=== PATIENT | female | born 1980 | race Caucasian/White ===

== ENCOUNTER 2019-12-08 08:37 | Inpatient (IN) | payer OTHER ==
[2019-12-08 10:08] VITALS: BMI 31.0
--- NOTE | 2019-12-08 11:16 | HP ---
COWS - Scale Resting Pulse: 0= [place] 80 or Below Sweatin=Flushed/Facial Moisture Restless Observation: 1= Difficult to Sit Still Pupil Size: 0= Normal to Room Light Bone or Joint Aches: 2= Severe Diffuse Aches Runny Nose/ Eye Tearin= Runny Nose/Eyes GI Upset > 30mins: 2= Nausea/Diarrhea Tremor Observation: 0= None Yawning Observation: 0= None Anxiety or Irritability: 2=Irritable/Anxious Goose Flesh Skin: 0=Smooth Skin COWS Score: 11 CIWA Score Nausea/Vomitin-Int. Nausea w/Dry Heave Muscle Tremors: 1-None Visible, but [place] Anxiety: 1-Mildly Anxious Agitation: 0-Normal Activity Paroxysmal Sweats: No Perspiration Orientation: 0-Oriented Tacttile Disturbances: 0-None Auditory Disturbances: 1-Very Mild Visual Disturbances: 0-None Headache: 0-None Present CIWA-Ar Total Score: 7 - Admission Criteria OASAS Guidelines: Admission for Medically Managed Detox: Requires at least one of the followin. CIWA greater than 12 2. Seizures within the past 24 hours 3. Delirium tremens within the past 24 hours 4. Hallucinations within the past 24 hours 5. Acute intervention needed for co occurring medical disorder 6. Acute intervention needed for co occurring psychiatric disorder 7. Severe withdrawal that cannot be handled at a lower level of care (continued vomiting, continued diarrhea, abnormal vital signs) requiring intravenous medication and/or fluids 8. Admitting History and Physical - Admission Chief Complaint: Ms. Amalia Phillips is a 39 yo woman who presents to [facility] requesting a detox admission for heroin, cocaine, crack and marijuana use. History of Present Illness: Ms. Amalia Phillips is a 39 yo woman who presents to [facility] requesting a detox admission for heroin, cocaine, crack and marijuana use. PMH: Asthma, prior albuterol and symbicort Psych: depression, no SI Substance use History Heroin; first use age 13 y, last today, quantity: 4 bags, prior IV, current snorting Alcohol: first use age 13 y, last use today, quantity 1-2 beers per month Cocaine: first use age 13 y, last use today, 4 bags daily, inhale Nicotine: one ppd - Past Medical History ...LMP: 12/25/17 ...: No - Smoking History Smoking history: Current every day smoker Have you smoked in the past 12 months: Yes Aproximately how many cigarettes per day: 20 - Alcohol/Substance Use Hx Alcohol Use: No Admission ROS BHS - HPI Allergies/Adverse Reactions: Allergies Allergy/AdvReac Type Severity Reaction Status Date / Time shellfish derived Allergy Mild Hives Verified 12/08/19 09:34 No Known Drug Allergies Allergy Hives Verified 12/08/19 09:34 Exam Limitations: No Limitations - Ebola screening Have you traveled outside of the country in the last 21 days: No Have you had contact with anyone from an Ebola affected area: No Have you been sick,other than usual withdrawal symptoms: No Do you have a fever: No - Review of Systems Constitutional: Unintentional Wgt. Loss (50 lb loss in 2 years) EENT: reports: No Symptoms Reported Respiratory: reports: Other (feels congested) Cardiac: reports: No Symptoms Reported GI: reports: Diarrhea : reports: No Symptoms Reported Musculoskeletal: reports: Joint Pain Integumentary: reports: Other (acne) Neuro: reports: No Symptoms reported Endocrine: reports: No Symptoms Reported Hematology: reports: No Symptoms Reported Psychiatric: reports: Depressed Patient History - Patient Medical History Hx Anemia: No Hx Asthma: Yes Hx Chronic Obstructive Pulmonary Disease (COPD): No Hx Cancer: No Hx Cardiac Disorders: No Hx Congestive Heart Failure: No Hx Hypertension: No Hx Hypercholesterolemia: No Hx Pacemaker: No HX Cerebrovascular Accident: No Hx Seizures: No Hx Dementia: No Hx Diabetes: No Hx Gastrointestinal Disorders: No Hx Liver Disease: No Hx Genitourinary Disorders: No Hx Sexually Transmitted Disorders: Yes (Clamydia) Hx Renal Disease (ESRD): No Hx Thyroid Disease: No Hx Human Immunodeficiency Virus (HIV): No Hx Hepatitis C: No Hx Depression: Yes Hx Suicide Attempt: No Hx Bipolar Disorder: Yes Hx Schizophrenia: Yes - Patient Surgical History Past Surgical History: No Hx Neurologic Surgery: No Hx Cataract Extraction: No Hx Cardiac Surgery: No Hx Lung Surgery: No Hx Breast Surgery: No Hx Breast Biopsy: No Hx Abdominal Surgery: No Hx Appendectomy: No Hx Cholecystectomy: No Hx Genitourinary Surgery: No Hx Section: No Hx Orthopedic Surgery: No Anesthesia Reaction: No - PPD History Previous Implant?: Yes Documented Results: Negative w/proof Implanted On Prior R Admission?: Yes Date: 01/24/18 Results: neg PPD to be Administered?: Yes - Reproductive History Last Menstrual Period: 12/25/17 Patient : No - Smoking Cessation Smoking history: Current every day smoker Have you smoked in the past 12 months: Yes Aproximately how many cigarettes per day: 20 Cigars Per Day: 1 Hx Chewing Tobacco Use: No Initiated information on smoking cessation: Yes 'Breaking Loose' booklet given: 12/08/19 - Substances abused Alcohol Substance route: Oral Frequency: 1-3 times last 30 days Amount used: 1-2 beers Age of first use: 13 Date of last use: 12/08/19 Cocaine Substance route: Inhalation Frequency: Daily Amount used: 4 bags Age of first use: 13 Date of last use: 12/08/19 Heroin Substance route: Smoking Frequency: Daily Amount used: 4 bags Age of first use: 13 Date of last use: 12/08/19 Crack Substance route: Smoking Frequency: Daily Amount used: 2-3 bags Age of first use: 13 Date of last use: 12/08/19 Marijuana/Hashish Substance route: Smoking Frequency: Daily Age of first use: 13 Date of last use: 12/08/19 Admission Physical Exam [facility] - Vital Signs Vital Signs: Vital Signs - 24 hr 12/08/19 10:02 Temperature 97.3 F L Pulse Rate 75 Respiratory 18 Rate Blood Pressure 137/81 - Physical General Appearance: Yes: Within Normal Limits HEENTM: Yes: Within Normal Limits Respiratory: Yes: Within Normal Limits Neck: Yes: Within Normal Limits Breast: Yes: Breast Exam Deferred Cardiology: Yes: Regular Rate, S1, S2 Abdominal: Yes: Decreased BS, Tenderness (bilateral upper abdomen, no guarding) Musculoskeletal: Yes: Gait Steady Extremities: Yes: Swelling (right anterior leg, no clear trauma) Neurological: Yes: Fully Oriented, Alert, Normal Response Integumentary: Yes: Within Normal Limits - Diagnostic (1) Alcohol dependence with withdrawal, uncomplicated Current Visit: Yes Status: Acute (2) DEPRESSION Current Visit: Yes Status: Acute (3) Opioid dependence, uncomplicated Current Visit: Yes Status: Acute (4) Asthma Current Visit: No Status: Chronic Cleared for Admission [facility] - Detox or Rehab [facility] Level of Care: Medically Managed Breathalyzer - Breathalyzer Breathalyzer: 0 Urine Drug Screen - Test Device Lot number: [id number] Expiration date: 09/26/21 - Control Is test valid?: Yes - Results Drug screen NEGATIVE: No Urine drug screen results: THC-Marijuana, HUBERT-Cocaine, FEN-Fentanyl, MOP-Opiates Inpatient Rehab Admission - Rehab Decision to Admit Inpatient rehab admission?: No
[2019-12-08] MEDS ORDERED: MAGNESIUM HYDROX 2400MG/30ML ORAL SUSPENSION 30 ML CUP PO PRN (11:24)
[2019-12-08] MEDS ORDERED: IBUPROFEN 400 MG TABLET (FP) PO PRN (11:24)
[2019-12-08] MEDS ORDERED: ACETAMINOPHEN 325 MG TABLET (FP) PO PRN ×2 (11:24)
[2019-12-08] MEDS ORDERED: BISMUTH SUBSALICYLATE 262 MG/15 ML BTL PO PRN (11:24)
[2019-12-08] MEDS ORDERED: MENTHOL/PHENOL 1 EACH UD MM PRN (11:24)
[2019-12-08] MEDS ORDERED: cloNIDine HCL 0.1 MG TABLET PO PRN (11:24)
[2019-12-08] MEDS ORDERED: MAGNESIUM CITRATE 300 ML BOTTLE PO PRN (11:24)
[2019-12-08] MEDS ORDERED: MAG HYDROX/AL HYDROX/SIMETH 30 ML UNIT-DOSE CUP PO PRN (11:24)
[2019-12-08] MEDS ORDERED: ALBUTEROL SO4 HFA INHALER IH PRN (11:28)
[2019-12-08] MEDS ORDERED: METHADONE HCL 10 MG TABLET (FOR DETOX USE ONLY) PO ONE (13:00)
[2019-12-08] MEDS: NICOTINE 21 MG/24 HOURS TOPICAL PATCH TD SCH (13:40)
[2019-12-08 14:34] LABS: HEMATOCRIT 33.5 % (32.4-45.2); HEMOGLOBIN 10.9 GM/dL (10.7-15.3); MCH 27.3 pg (25.7-33.7); MCHC 32.6 g/dl (32.0-36.0); MEAN CELL VOLUME 83.6 fl (80-96); MEAN PLT VOLUME 7.2 fl (7.5-11.1); PLATELET COUNT 350 K/MM3 (134-434); RDW 17.9 % (11.6-15.6); WHITE BLOOD COUNT 6.9 K/mm3 (4.0-10.0)
[2019-12-08 14:45] LABS: ALBUMIN 3.7 g/dl (3.4-5.0); BILIRUBIN,TOTAL 0.5 mg/dL (0.2-1); BLOOD UREA NITROGEN 11.3 mg/dL (7-18); CALCIUM 8.8 mg/dL (8.5-10.1); CREATININE 0.8 mg/dL (0.55-1.3); POTASSIUM 4.3 mmol/L (3.5-5.1); TOT PROT 7.7 g/dl (6.4-8.2)
[2019-12-08] MEDS: METHOCARBAMOL 500 MG TABLET PO PRN (17:36)
[2019-12-08] MEDS: hydrOXYzine PAMOATE 25 MG CAPSULE (FP) PO PRN (17:37)
[2019-12-08] MEDS: BUDESONIDE/FORMETEROL FUMARATE 80/4.5 mcg INHALER IH SCH (22:08)
[2019-12-08] MEDS: MELATONIN 5 MG TABLETS PO PRN (22:09)
[2019-12-08] MEDS: THIAMINE HCL 100 MG TABLET (FP) PO SCH (22:09)
[2019-12-09] MEDS ORDERED: METHADONE HCL 10 MG TABLET (FOR DETOX USE ONLY) ONE (09:49)
[2019-12-09] MEDS ORDERED: METHADONE HCL 5 MG TABLET (FOR DETOX USE ONLY) ONE (09:49)
[2019-12-09] MEDS ORDERED: METHADONE (DETOX) 20 MG, METHADONE (DETOX) 5 MG PO ONE (10:00)
[2019-12-09] MEDS: PRENATAL VITAMINS W/ FOLIC ACID TABLET (FP) PO SCH (10:04)
[2019-12-09] MEDS: METHOCARBAMOL 500 MG TABLET PO PRN (10:04)
[2019-12-09] MEDS: NICOTINE 21 MG/24 HOURS TOPICAL PATCH TD SCH (10:04)
[2019-12-09] MEDS: hydrOXYzine PAMOATE 25 MG CAPSULE (FP) PO PRN ×2 (10:04→19:49)
[2019-12-09] MEDS: BUDESONIDE/FORMETEROL FUMARATE 80/4.5 mcg INHALER IH SCH ×2 (10:05→23:21)
[2019-12-09] MEDS ORDERED: PNEUMOCOCCAL 23 VACCINE 0.5 ML VIAL IM ONE (12:00)
[2019-12-09] MEDS ORDERED: FLU VACCINE QUAD 60 MCG/0.5 ML (MDV 19-20) IM ONE (12:00)
[2019-12-09] MEDS ORDERED: PNEUMOC 13-VAL CONJ-DIP CRM/PF 0.5 ML DISP.SYRIN IM ONE (12:00)
--- NOTE | 2019-12-09 12:44 | PN ---
S COWS - Scale Resting Pulse: 0= [place] 80 or Below Sweatin= No chills or Flushing Restless Observation: 1= Difficult to Sit Still Pupil Size: 1= Pupils >than Normal Bone or Joint Aches: 1= Mild Discomfort Runny Nose/ Eye Tearin= Runny Nose/Eyes GI Upset > 30mins: 2= Nausea/Diarrhea Tremor Observation of Outstretched Hands: 2= Slight Tremor Visible Yawning Observation: 1= 1-2x During Session Anxiety or Irritability: 2=Irritable/Anxious Goose Flesh Skin: 0=Smooth Skin COWS Score: 12 S Progress Note (SOAP) Subjective: alert,irritable,anxious,interrupted sleep,pain in the body,rash on the face Objective: 12/09/19 12:42 Vital Signs Temperature 98.3 F 12/09/19 08:56 Pulse Rate 79 12/09/19 08:56 Respiratory Rate 16 12/09/19 08:56 Blood Pressure 116/78 12/09/19 08:56 O2 Sat by Pulse Oximetry (%) 12/09/19 12:42 Laboratory Last Values WBC 6.9 K/mm3 (4.0-10.0) 12/08/19 11:50 RBC 4.00 M/mm3 (3.60-5.2) 12/08/19 11:50 Hgb 10.9 GM/dL (10.7-15.3) 12/08/19 11:50 Hct 33.5 % (32.4-45.2) 12/08/19 11:50 MCV 83.6 fl (80-96) 12/08/19 11:50 MCH 27.3 pg (25.7-33.7) 12/08/19 11:50 MCHC 32.6 g/dl (32.0-36.0) 12/08/19 11:50 RDW 17.9 % (11.6-15.6) H 12/08/19 11:50 Plt Count 350 K/MM3 (134-434) 12/08/19 11:50 MPV 7.2 fl (7.5-11.1) L 12/08/19 11:50 Sodium 137 mmol/L (136-145) 12/08/19 11:50 Potassium 4.3 mmol/L (3.5-5.1) 12/08/19 11:50 Chloride 105 mmol/L (98-107) 12/08/19 11:50 Carbon Dioxide 28 mmol/L (21-32) 12/08/19 11:50 Anion Gap 4 MMOL/L (8-16) L 12/08/19 11:50 BUN 11.3 mg/dL (7-18) 12/08/19 11:50 Creatinine 0.8 mg/dL (0.55-1.3) 12/08/19 11:50 Est GFR (CKD-EPI)AfAm 106.13 12/08/19 11:50 Est GFR (CKD-EPI)NonAf 91.57 12/08/19 11:50 Random Glucose 76 mg/dL (74-106) 12/08/19 11:50 Calcium 8.8 mg/dL (8.5-10.1) 12/08/19 11:50 Total Bilirubin 0.5 mg/dL (0.2-1) 12/08/19 11:50 AST 15 U/L (15-37) 12/08/19 11:50 ALT 13 U/L (13-61) 12/08/19 11:50 Alkaline Phosphatase 76 U/L (45-117) 12/08/19 11:50 Total Protein 7.7 g/dl (6.4-8.2) 12/08/19 11:50 Albumin 3.7 g/dl (3.4-5.0) 12/08/19 11:50 RPR Titer Nonreactive (NONREACTIVE) 12/08/19 11:50 Assessment: 12/09/19 12:43 withdrawal symptom Plan: continue deox methadone regimen,to give valium 10 mgs po q 4 hrs prn for 72 hrs
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
[2019-12-09] MEDS: HYDROCORTISONE 0.5% TOPICAL CREAM 30 GM TUBE TP SCH ×2 (13:38→22:32)
[2019-12-09] MEDS: diazePAM 5 MG TABLET PO PRN (13:38)
[2019-12-09] MEDS: COLLOIDAL OATMEAL 1 BAR EACH TP PRN (13:39)
[2019-12-09] MEDS: traZODone HCL 50 MG TABLET (FP) PO SCH (22:28)
[2019-12-09] MEDS: THIAMINE HCL 100 MG TABLET (FP) PO SCH (22:30)
[2019-12-09] MEDS: BENZTROPINE MESYLATE 1 MG TABLET PO SCH (22:30)
[2019-12-09] MEDS: MELATONIN 5 MG TABLETS PO PRN (22:32)
[2019-12-09] MEDS: risperiDONE 1 MG TABLET PO SCH (23:24)
[2019-12-10] MEDS ORDERED: METHADONE HCL 10 MG TABLET (FOR DETOX USE ONLY) PO ONE (10:00)
[2019-12-10] MEDS: BENZTROPINE MESYLATE 1 MG TABLET PO SCH ×2 (10:22→22:29)
[2019-12-10] MEDS: risperiDONE 1 MG TABLET PO SCH ×2 (10:22→22:30)
[2019-12-10] MEDS: NICOTINE 21 MG/24 HOURS TOPICAL PATCH TD SCH (10:23)
[2019-12-10] MEDS: PRENATAL VITAMINS W/ FOLIC ACID TABLET (FP) PO SCH (10:24)
[2019-12-10] MEDS: CITALOPRAM HYDROBROMIDE 20 MG TABLET PO SCH (10:24)
[2019-12-10] MEDS: HYDROCORTISONE 0.5% TOPICAL CREAM 30 GM TUBE TP SCH ×2 (10:25→22:32)
[2019-12-10] MEDS: BUDESONIDE/FORMETEROL FUMARATE 80/4.5 mcg INHALER IH SCH ×2 (10:26→22:32)
--- NOTE | 2019-12-10 13:56 | PN ---
[facility]HS COWS - Scale Resting Pulse: 0= [place] 80 or Below Sweatin= Chills/Flushing Restless Observation: 1= Difficult to Sit Still Pupil Size: 0= Normal to Room Light Bone or Joint Aches: 2= Severe Diffuse Aches Runny Nose/ Eye Tearin= None GI Upset > 30mins: 0= None Tremor Observation of Outstretched Hands: 2= Slight Tremor Visible Yawning Observation: 1= 1-2x During Session Anxiety or Irritability: 2=Irritable/Anxious Goose Flesh Skin: 0=Smooth Skin COWS Score: 9 S Progress Note (SOAP) Subjective: c/o chills, sweats, anxiety, and muscle aches. Objective: 12/10/19 13:55 Vital Signs 12/10/19 12/10/19 12/10/19 06:46 08:43 13:00 Temperature 98.4 F 98.3 F 99.1 F Pulse Rate 70 66 79 Respiratory 18 18 18 Rate Blood Pressure 99/57 L 117/70 117/70 Laboratory Last Values WBC 6.9 K/mm3 (4.0-10.0) 12/08/19 11:50 RBC 4.00 M/mm3 (3.60-5.2) 12/08/19 11:50 Hgb 10.9 GM/dL (10.7-15.3) 12/08/19 11:50 Hct 33.5 % (32.4-45.2) 12/08/19 11:50 MCV 83.6 fl (80-96) 12/08/19 11:50 MCH 27.3 pg (25.7-33.7) 12/08/19 11:50 MCHC 32.6 g/dl (32.0-36.0) 12/08/19 11:50 RDW 17.9 % (11.6-15.6) H 12/08/19 11:50 Plt Count 350 K/MM3 (134-434) 12/08/19 11:50 MPV 7.2 fl (7.5-11.1) L 12/08/19 11:50 Sodium 137 mmol/L (136-145) 12/08/19 11:50 Potassium 4.3 mmol/L (3.5-5.1) 12/08/19 11:50 Chloride 105 mmol/L (98-107) 12/08/19 11:50 Carbon Dioxide 28 mmol/L (21-32) 12/08/19 11:50 Anion Gap 4 MMOL/L (8-16) L 12/08/19 11:50 BUN 11.3 mg/dL (7-18) 12/08/19 11:50 Creatinine 0.8 mg/dL (0.55-1.3) 12/08/19 11:50 Est GFR (CKD-EPI)AfAm 106.13 12/08/19 11:50 Est GFR (CKD-EPI)NonAf 91.57 12/08/19 11:50 Random Glucose 76 mg/dL (74-106) 12/08/19 11:50 Calcium 8.8 mg/dL (8.5-10.1) 12/08/19 11:50 Total Bilirubin 0.5 mg/dL (0.2-1) 12/08/19 11:50 AST 15 U/L (15-37) 12/08/19 11:50 ALT 13 U/L (13-61) 12/08/19 11:50 Alkaline Phosphatase 76 U/L (45-117) 12/08/19 11:50 Total Protein 7.7 g/dl (6.4-8.2) 12/08/19 11:50 Albumin 3.7 g/dl (3.4-5.0) 12/08/19 11:50 RPR Titer Nonreactive (NONREACTIVE) 12/08/19 11:50 Labs noted. Assessment: 12/10/19 13:56 AOX 3, in no respiratory distress. Full ROM, ambulating in the unit. Withdrawal symptoms. Plan: continue detox.
[2019-12-10] MEDS: diazePAM 5 MG TABLET PO PRN (18:44)
[2019-12-10] MEDS: traZODone HCL 50 MG TABLET (FP) PO SCH (22:30)
[2019-12-10] MEDS: THIAMINE HCL 100 MG TABLET (FP) PO SCH (22:32)
[2019-12-11] MEDS: MELATONIN 5 MG TABLETS PO PRN (02:06)
[2019-12-11] MEDS ORDERED: METHADONE HCL 10 MG TABLET (FOR DETOX USE ONLY) ONE (09:37)
[2019-12-11] MEDS ORDERED: METHADONE HCL 5 MG TABLET (FOR DETOX USE ONLY) ONE (09:38)
[2019-12-11] MEDS ORDERED: METHADONE (DETOX) 10 MG, METHADONE (DETOX) 5 MG PO ONE (10:00)
[2019-12-11] MEDS: BENZTROPINE MESYLATE 1 MG TABLET PO SCH ×2 (10:15→22:21)
[2019-12-11] MEDS: risperiDONE 1 MG TABLET PO SCH ×2 (10:15→22:20)
[2019-12-11] MEDS: CITALOPRAM HYDROBROMIDE 20 MG TABLET PO SCH (10:15)
[2019-12-11] MEDS: PRENATAL VITAMINS W/ FOLIC ACID TABLET (FP) PO SCH (10:15)
[2019-12-11] MEDS: HYDROCORTISONE 0.5% TOPICAL CREAM 30 GM TUBE TP SCH ×2 (10:18→22:20)
[2019-12-11] MEDS: NICOTINE 21 MG/24 HOURS TOPICAL PATCH TD SCH (10:18)
[2019-12-11] MEDS: BUDESONIDE/FORMETEROL FUMARATE 80/4.5 mcg INHALER IH SCH ×2 (10:18→22:20)
--- NOTE | 2019-12-11 11:11 | PN ---
S CIWA - CIWA Score Nausea/Vomitin-No Nausea/No Vomiting Muscle Tremors: 2 Anxiety: 2 Agitation: 0-Normal Activity Paroxysmal Sweats: 2 Orientation: 0-Oriented Tacttile Disturbances: 0-None Auditory Disturbances: 0-None Visual Disturbances: 0-None Headache: 0-None Present CIWA-Ar Total Score: 6 [facility]HS COWS - Scale Resting Pulse: 0= [place] 80 or Below Sweatin= Chills/Flushing Restless Observation: 0= Sits Still Pupil Size: 0= Normal to Room Light Bone or Joint Aches: 1= Mild Discomfort Runny Nose/ Eye Tearin= None GI Upset > 30mins: 1= Stomach Cramp Tremor Observation of Outstretched Hands: 1= Tremor [place], Not Seen Yawning Observation: 0= None Anxiety or Irritability: 2=Irritable/Anxious Goose Flesh Skin: 0=Smooth Skin COWS Score: 6 S Progress Note (SOAP) Subjective: 39 years old female admitted on 12/08/19 for alcohol and opiate withdrawal sx management treating with valium prn and methadone detox regiments feeling ok today ate breakfast tolerated food and fluid well resting in bed Objective: 12/11/19 11:10 Vital Signs Temperature 97.5 F L 12/11/19 08:45 Pulse Rate 51 L 12/11/19 08:45 Respiratory Rate 18 12/11/19 08:45 Blood Pressure 110/74 12/11/19 08:45 O2 Sat by Pulse Oximetry (%) Laboratory Last Values WBC 6.9 K/mm3 (4.0-10.0) 12/08/19 11:50 RBC 4.00 M/mm3 (3.60-5.2) 12/08/19 11:50 Hgb 10.9 GM/dL (10.7-15.3) 12/08/19 11:50 Hct 33.5 % (32.4-45.2) 12/08/19 11:50 MCV 83.6 fl (80-96) 12/08/19 11:50 MCH 27.3 pg (25.7-33.7) 12/08/19 11:50 MCHC 32.6 g/dl (32.0-36.0) 12/08/19 11:50 RDW 17.9 % (11.6-15.6) H 12/08/19 11:50 Plt Count 350 K/MM3 (134-434) 12/08/19 11:50 MPV 7.2 fl (7.5-11.1) L 12/08/19 11:50 Sodium 137 mmol/L (136-145) 12/08/19 11:50 Potassium 4.3 mmol/L (3.5-5.1) 12/08/19 11:50 Chloride 105 mmol/L (98-107) 12/08/19 11:50 Carbon Dioxide 28 mmol/L (21-32) 12/08/19 11:50 Anion Gap 4 MMOL/L (8-16) L 12/08/19 11:50 BUN 11.3 mg/dL (7-18) 12/08/19 11:50 Creatinine 0.8 mg/dL (0.55-1.3) 12/08/19 11:50 Est GFR (CKD-EPI)AfAm 106.13 12/08/19 11:50 Est GFR (CKD-EPI)NonAf 91.57 12/08/19 11:50 Random Glucose 76 mg/dL (74-106) 12/08/19 11:50 Calcium 8.8 mg/dL (8.5-10.1) 12/08/19 11:50 Total Bilirubin 0.5 mg/dL (0.2-1) 12/08/19 11:50 AST 15 U/L (15-37) 12/08/19 11:50 ALT 13 U/L (13-61) 12/08/19 11:50 Alkaline Phosphatase 76 U/L (45-117) 12/08/19 11:50 Total Protein 7.7 g/dl (6.4-8.2) 12/08/19 11:50 Albumin 3.7 g/dl (3.4-5.0) 12/08/19 11:50 RPR Titer Nonreactive (NONREACTIVE) 12/08/19 11:50 lab noted Assessment: 12/11/19 11:10 alcohol and opiate withdrawal Plan: valium prn and methadone regiment
[2019-12-11] MEDS: diazePAM 5 MG TABLET PO PRN (16:58)
[2019-12-11] MEDS: traZODone HCL 50 MG TABLET (FP) PO SCH (22:20)
[2019-12-11] MEDS: THIAMINE HCL 100 MG TABLET (FP) PO SCH (22:20)
[2019-12-12] MEDS ORDERED: METHADONE HCL 10 MG TABLET (FOR DETOX USE ONLY) PO ONE (10:00)
[2019-12-12] MEDS: PRENATAL VITAMINS W/ FOLIC ACID TABLET (FP) PO SCH (10:17)
[2019-12-12] MEDS: METHOCARBAMOL 500 MG TABLET PO PRN (10:17)
[2019-12-12] MEDS: risperiDONE 1 MG TABLET PO SCH ×2 (10:18→22:11)
[2019-12-12] MEDS: BENZTROPINE MESYLATE 1 MG TABLET PO SCH ×2 (10:18→22:13)
[2019-12-12] MEDS: HYDROCORTISONE 0.5% TOPICAL CREAM 30 GM TUBE TP SCH ×2 (10:18→22:14)
[2019-12-12] MEDS: CITALOPRAM HYDROBROMIDE 20 MG TABLET PO SCH (10:19)
[2019-12-12] MEDS: NICOTINE 21 MG/24 HOURS TOPICAL PATCH TD SCH (10:22)
[2019-12-12] MEDS: BUDESONIDE/FORMETEROL FUMARATE 80/4.5 mcg INHALER IH SCH ×2 (10:22→22:11)
--- NOTE | 2019-12-12 12:18 | PN ---
[facility] CIWA - CIWA Score Nausea/Vomitin-No Nausea/No Vomiting Muscle Tremors: 1-None Visible, but Circle Anxiety: 1-Mildly Anxious Agitation: 0-Normal Activity Paroxysmal Sweats: 1-Minimal Palms Moist Orientation: 0-Oriented Tacttile Disturbances: 0-None Auditory Disturbances: 0-None Visual Disturbances: 0-None Headache: 0-None Present CIWA-Ar Total Score: 3 S COWS - Scale Resting Pulse: 1= [place] 81-100 Sweatin= No chills or Flushing Restless Observation: 0= Sits Still Pupil Size: 0= Normal to Room Light Bone or Joint Aches: 1= Mild Discomfort Runny Nose/ Eye Tearin= None GI Upset > 30mins: 0= None Tremor Observation of Outstretched Hands: 0= None Yawning Observation: 0= None Anxiety or Irritability: 1=Feels Anxious/Irritable Goose Flesh Skin: 0=Smooth Skin COWS Score: 3 [facility] Progress Note (SOAP) Subjective: 39 years old female admitted on 12/08/19 for alcohol and opiate withdrawal sx management treting with valium and methadone detox regiments feeling better today slept through the night less tremor mild body ache Objective: 12/12/19 12:17 Vital Signs Temperature 98.4 F 12/12/19 08:54 Pulse Rate 81 12/12/19 08:54 Respiratory Rate 18 12/12/19 08:54 Blood Pressure 122/70 12/12/19 08:54 O2 Sat by Pulse Oximetry (%) Laboratory Last Values WBC 6.9 K/mm3 (4.0-10.0) 12/08/19 11:50 RBC 4.00 M/mm3 (3.60-5.2) 12/08/19 11:50 Hgb 10.9 GM/dL (10.7-15.3) 12/08/19 11:50 Hct 33.5 % (32.4-45.2) 12/08/19 11:50 MCV 83.6 fl (80-96) 12/08/19 11:50 MCH 27.3 pg (25.7-33.7) 12/08/19 11:50 MCHC 32.6 g/dl (32.0-36.0) 12/08/19 11:50 RDW 17.9 % (11.6-15.6) H 12/08/19 11:50 Plt Count 350 K/MM3 (134-434) 12/08/19 11:50 MPV 7.2 fl (7.5-11.1) L 12/08/19 11:50 Sodium 137 mmol/L (136-145) 12/08/19 11:50 Potassium 4.3 mmol/L (3.5-5.1) 12/08/19 11:50 Chloride 105 mmol/L (98-107) 12/08/19 11:50 Carbon Dioxide 28 mmol/L (21-32) 12/08/19 11:50 Anion Gap 4 MMOL/L (8-16) L 12/08/19 11:50 BUN 11.3 mg/dL (7-18) 12/08/19 11:50 Creatinine 0.8 mg/dL (0.55-1.3) 12/08/19 11:50 Est GFR (CKD-EPI)AfAm 106.13 12/08/19 11:50 Est GFR (CKD-EPI)NonAf 91.57 12/08/19 11:50 Random Glucose 76 mg/dL (74-106) 12/08/19 11:50 Calcium 8.8 mg/dL (8.5-10.1) 12/08/19 11:50 Total Bilirubin 0.5 mg/dL (0.2-1) 12/08/19 11:50 AST 15 U/L (15-37) 12/08/19 11:50 ALT 13 U/L (13-61) 12/08/19 11:50 Alkaline Phosphatase 76 U/L (45-117) 12/08/19 11:50 Total Protein 7.7 g/dl (6.4-8.2) 12/08/19 11:50 Albumin 3.7 g/dl (3.4-5.0) 12/08/19 11:50 RPR Titer Nonreactive (NONREACTIVE) 12/08/19 11:50 lab noted Assessment: 12/12/19 12:18 alcohol and opiate withdrawal Plan: valium and methadone regiments
[2019-12-12] MEDS: hydrOXYzine PAMOATE 25 MG CAPSULE (FP) PO PRN (18:55)
[2019-12-12] MEDS: THIAMINE HCL 100 MG TABLET (FP) PO SCH (22:13)
[2019-12-12] MEDS: traZODone HCL 50 MG TABLET (FP) PO SCH (22:13)
[2019-12-13] MEDS ORDERED: METHADONE HCL 5 MG TABLET (FOR DETOX USE ONLY) PO ONE (06:00)
[2019-12-13 09:07] VITALS: BP 131/87; PULSE 83; TEMP 97.8
[2019-12-13] MEDS: hydrOXYzine PAMOATE 25 MG CAPSULE (FP) PO PRN (10:03)
[2019-12-13] MEDS: BENZTROPINE MESYLATE 1 MG TABLET PO SCH (10:03)
[2019-12-13] MEDS: CITALOPRAM HYDROBROMIDE 20 MG TABLET PO SCH (10:03)
[2019-12-13] MEDS: NICOTINE 21 MG/24 HOURS TOPICAL PATCH TD SCH (10:04)
[2019-12-13] MEDS: PRENATAL VITAMINS W/ FOLIC ACID TABLET (FP) PO SCH (10:04)
[2019-12-13] MEDS: HYDROCORTISONE 0.5% TOPICAL CREAM 30 GM TUBE TP SCH (10:04)
[2019-12-13] MEDS: risperiDONE 1 MG TABLET PO SCH (10:04)
[2019-12-13] MEDS: BUDESONIDE/FORMETEROL FUMARATE 80/4.5 mcg INHALER IH SCH (10:05)
[2019-12-13] MEDS: COLLOIDAL OATMEAL 1 BAR EACH TP PRN (10:53)
--- NOTE | 2019-12-13 12:27 | DS ---
[facility] Detox Discharge Summary Admission Date: 12/08/19 Discharge Date: 12/13/19 - History Present History: Alcohol Dependence, Opioid Dependence Additional Comments: 39 years old female admitted on 12/08/19 for alcohol and opiate withdrawal sx management treated with valium and methadone detox regiments patient has completed the valium and methadone regiments and tolerated well seen by psychiatrist charity andino trazadone patient is alert oriented x 3 respiratory clear lungs bilaterally on auscultation abdomen soft round obese no rebound tenderness skin warm and dry Pertinent Past History: time for discharge: 28 minutes - Physical Exam Results Vital Signs: Vital Signs Temperature 97.8 F 12/13/19 08:42 Pulse Rate 83 12/13/19 08:42 Respiratory Rate 18 12/13/19 08:42 Blood Pressure 131/87 12/13/19 08:42 O2 Sat by Pulse Oximetry (%) Pertinent Admission Physical Exam Findings: alcohol and opiate withdrawal Laboratory Last Values WBC 6.9 K/mm3 (4.0-10.0) 12/08/19 11:50 RBC 4.00 M/mm3 (3.60-5.2) 12/08/19 11:50 Hgb 10.9 GM/dL (10.7-15.3) 12/08/19 11:50 Hct 33.5 % (32.4-45.2) 12/08/19 11:50 MCV 83.6 fl (80-96) 12/08/19 11:50 MCH 27.3 pg (25.7-33.7) 12/08/19 11:50 MCHC 32.6 g/dl (32.0-36.0) 12/08/19 11:50 RDW 17.9 % (11.6-15.6) H 12/08/19 11:50 Plt Count 350 K/MM3 (134-434) 12/08/19 11:50 MPV 7.2 fl (7.5-11.1) L 12/08/19 11:50 Sodium 137 mmol/L (136-145) 12/08/19 11:50 Potassium 4.3 mmol/L (3.5-5.1) 12/08/19 11:50 Chloride 105 mmol/L (98-107) 12/08/19 11:50 Carbon Dioxide 28 mmol/L (21-32) 12/08/19 11:50 Anion Gap 4 MMOL/L (8-16) L 12/08/19 11:50 BUN 11.3 mg/dL (7-18) 12/08/19 11:50 Creatinine 0.8 mg/dL (0.55-1.3) 12/08/19 11:50 Est GFR (CKD-EPI)AfAm 106.13 12/08/19 11:50 Est GFR (CKD-EPI)NonAf 91.57 12/08/19 11:50 Random Glucose 76 mg/dL (74-106) 12/08/19 11:50 Calcium 8.8 mg/dL (8.5-10.1) 12/08/19 11:50 Total Bilirubin 0.5 mg/dL (0.2-1) 12/08/19 11:50 AST 15 U/L (15-37) 12/08/19 11:50 ALT 13 U/L (13-61) 12/08/19 11:50 Alkaline Phosphatase 76 U/L (45-117) 12/08/19 11:50 Total Protein 7.7 g/dl (6.4-8.2) 12/08/19 11:50 Albumin 3.7 g/dl (3.4-5.0) 12/08/19 11:50 RPR Titer Nonreactive (NONREACTIVE) 12/08/19 11:50 lab noted - Treatment Hospital Course: Detox Protocol Followed, Detoxed Safely, Responded well, Discharged Condition Good, Rehab Referral Accepted Patient has Accepted [facility] Referral [facility] - Medication Discharge Medications: Ambulatory Orders Naltrexone HCl 50 mg PO DAILY 01/22/18 Citalopram Hydrobromide [Celexa -] 20 mg PO DAILY #30 tablet 01/25/18 Albuterol Sulfate Inhaler - [Ventolin HFA Inhaler -] 2 puff IH Q4H PRN #1 inhaler 01/26/18 Budesonide/Formeterol Fumarate [SYMBICORT 80/4.5mcg -] 2 puff IH BID #1 inhaler 01/26/18 traZODone HCL [Trazodone HCl] 100 mg PO HS 12/08/19 Benztropine Mesylate [Cogentin -] 0.5 mg PO BID 12/13/19 Risperidone [Risperdal] 1 mg PO BID 12/13/19 - Diagnosis (1) Alcohol dependence with withdrawal, uncomplicated Status: Acute (2) Nicotine dependence Status: Acute Qualifiers: Nicotine product type: cigarettes Substance use status: in withdrawal Qualified Code(s): F17.213 - Nicotine dependence, cigarettes, with withdrawal (3) Opioid dependence with withdrawal Status: Acute (4) Asthma Status: Chronic Qualifiers: Asthma severity: mild Asthma persistence: intermittent Asthma complication type: with status asthmaticus Qualified Code(s): J45.22 - Mild intermittent asthma with status asthmaticus (5) Substance induced mood disorder Status: Suspected - AMA Did Patient Leave Against Medical Advice: No CIWA Score - CIWA Score Nausea/Vomitin-No Nausea/No Vomiting Muscle Tremors: 1-None Visible, but [place] Anxiety: 1-Mildly Anxious Agitation: 0-Normal Activity Paroxysmal Sweats: No Perspiration Orientation: 0-Oriented Tacttile Disturbances: 0-None Auditory Disturbances: 0-None Visual Disturbances: 0-None Headache: 0-None Present CIWA-Ar Total Score: 2 COWS (PN) - Opiate Withdrawal Resting Pulse: 1= [place] 81-100 Sweatin= No chills or Flushing Restless Observation: 0= Sits Still Pupil Size: 0= Normal to Room Light Bone or Joint Aches: 0= None Runny Nose/ Eye Tearin= None GI Upset > 30mins: 0= None Tremor Observation of Outstretched Hands: 1= Tremor [place], Not Seen Yawning Observation: 0= None Anxiety or Irritability: 0= None Goose Flesh Skin: 0=Smooth Skin COWS Score: 2
== END 2019-12-13 12:18 | disposition other institution (70) | DRG 897 ==
LOC: YASAS 08:37 → Y3N 12:35
PROVIDERS: ADMIT Allergy & Immunology; ATTEND Allergy & Immunology
PROC: HZ2ZZZZ Detoxification Services for Substance Abuse Treatment (ICD-10-PCS; principal; 2019-12-08)
DX: F11.23 Opioid dependence with withdrawal (principal); F14.20 Cocaine dependence, uncomplicated; J45.22 Mild intermittent asthma with status asthmaticus; F10.230 Alcohol dependence with withdrawal, uncomplicated; F12.20 Cannabis dependence, uncomplicated; F17.213 Nicotine dependence, cigarettes, with withdrawal; F19.24 Other psychoactive substance dependence with psychoactive substance-induced mood disorder; F25.9 Schizoaffective disorder, unspecified; F32.9 Major depressive disorder, single episode, unspecified; G47.00 Insomnia, unspecified; Z62.810 Personal history of physical and sexual abuse in childhood
CPT/HCPCS: 36415; 80053; 85027; 86593; J2794

== ENCOUNTER 2019-12-13 12:35 | Inpatient (IN) | payer OTHER ==
--- NOTE | 2019-12-13 12:16 | HP ---
[facility] Rehab Assess/Revision - Admission History Admitted to Rehab from: [facility] Date of Admission to Rehab: 12/12/19 - Findings Detox History & Physical reviewed: Yes Concur with findings: Yes Comments/Additional Findings: transferred from detox to rehab admission as per protocol Inpatient Rehab Admission - Rehab Decision to Admit Inpatient rehab admission?: Yes - Initial Determination Are CD services needed?: Yes Free of communicable disease: Yes Not in need of hospitalization: Yes - Rehab Admission Criteria Previous failed treatment: Yes Poor recovery environment: Yes Comorbidities: Yes Lacks judgement: Yes Patient is meeting Inpatient Rehab admission criteria:: Yes
[~2019-12-13 12:35] MED LIST: IBUPROFEN 400 MG TABLET (FP) PO PRN; LOPERAMIDE HCL 2 MG CAPSULE PO PRN; MAG HYDROX/AL HYDROX/SIMETH 30 ML UNIT-DOSE CUP PO PRN; MAGNESIUM CITRATE 300 ML BOTTLE PO PRN; MAGNESIUM HYDROX 2400MG/30ML ORAL SUSPENSION 30 ML CUP PO PRN; MENTHOL/PHENOL 1 EACH UD MM PRN; NICOTINE POLACRILEX 4 MG GUM BUC PRN; P-EPHED 60MG/TRIPROLIDI 2.5MG TABLET PO PRN; guaiFENesin 200 MG/10 ML 10 ML UNIT-DOSE CUPS PO PRN
--- NOTE | 2019-12-13 13:31 | PN ---
[facility] Progress Note Note: Pt is a 39 y/o female with a hx of OCTAVIO-heroin,crack/cocaine,alcohol,marijuana admitted to rehab today after completing detox on . PMHx:Asthma,facial Acne. Psych Hx:Bipolar d/o. PSHx:Denies. Pt reports she has a primary care provider Dr. Mani Casper in the [place](reports she has not had first patient encounter with her doctor after assignment by her insurance and says she will follow up after rehab treatment). Vital Signs - 24 hr 12/13/19 12:25 Temperature 97.9 F Pulse Rate 76 Respiratory 18 Rate Blood Pressure 132/88 Alert o x 3,denies s/h/i nad oob ambulating with steady gait extremities/skin:no edema;healed scars on right wrist("from cooking last thanksgi");dry skin on soles of feet. A/P s/p detox OCTAVIO Maintain safety increase po fluids Tinactin cream apply as directed Eucerin cream apply daily cont rehab
[2019-12-13] MEDS: MINERAL OIL/PETROLAT/WATER TOPICAL CREAM 113 GM JAR TP SCH (15:48)
[2019-12-13] MEDS: BUDESONIDE/FORMETEROL FUMARATE 80/4.5 mcg INHALER IH SCH (21:45)
[2019-12-13] MEDS: THIAMINE HCL 100 MG TABLET (FP) PO SCH (21:46)
[2019-12-13] MEDS: BENZTROPINE MESYLATE 1 MG TABLET PO SCH (21:46)
[2019-12-13] MEDS: MELATONIN 5 MG TABLETS PO PRN (21:47)
[2019-12-13] MEDS: HYDROCORTISONE 0.5% TOPICAL CREAM 30 GM TUBE TP SCH ×2 (21:48→22:16)
[2019-12-13] MEDS: TOLNAFTATE 1% CREAM 15 GM TUBE TP SCH (21:49)
[2019-12-13] MEDS ORDERED: traZODone HCL 50 MG TABLET (FP) PO SCH (22:00)
[2019-12-14] MEDS: HYDROCORTISONE 0.5% TOPICAL CREAM 30 GM TUBE TP SCH ×3 (06:47→21:44)
[2019-12-14] MEDS ORDERED: PT OWN MED DRAWER 7, Y5N ONE ×3 (09:03→19:25)
[2019-12-14] MEDS: BENZTROPINE MESYLATE 1 MG TABLET PO SCH ×2 (10:19→21:42)
[2019-12-14] MEDS: CITALOPRAM HYDROBROMIDE 20 MG TABLET PO SCH (10:19)
[2019-12-14] MEDS: MINERAL OIL/PETROLAT/WATER TOPICAL CREAM 113 GM JAR TP SCH (10:20)
[2019-12-14] MEDS: BUDESONIDE/FORMETEROL FUMARATE 80/4.5 mcg INHALER IH SCH ×2 (10:20→21:44)
[2019-12-14] MEDS: PRENATAL VITAMINS W/ FOLIC ACID TABLET (FP) PO SCH (10:20)
[2019-12-14] MEDS: NICOTINE 21 MG/24 HOURS TOPICAL PATCH TD SCH (10:20)
[2019-12-14] MEDS: TOLNAFTATE 1% CREAM 15 GM TUBE TP SCH ×2 (10:21→21:45)
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
[2019-12-14] MEDS ORDERED: FLU VACCINE QUAD 60 MCG/0.5 ML (MDV 19-20) IM ONE (12:00)
[2019-12-14] MEDS: risperiDONE 1 MG TABLET PO SCH ×2 (15:54→21:42)
[2019-12-14] MEDS: THIAMINE HCL 100 MG TABLET (FP) PO SCH (21:42)
[2019-12-14] MEDS: traZODone HCL 50 MG TABLET (FP) PO SCH (21:43)
[2019-12-15] MEDS: HYDROCORTISONE 0.5% TOPICAL CREAM 30 GM TUBE TP SCH ×3 (06:45→21:36)
[2019-12-15] MEDS ORDERED: PT OWN MED DRAWER 7, Y5N ONE ×2 (08:49→13:32)
[2019-12-15] MEDS: TOLNAFTATE 1% CREAM 15 GM TUBE TP SCH ×2 (10:16→21:36)
[2019-12-15] MEDS: BUDESONIDE/FORMETEROL FUMARATE 80/4.5 mcg INHALER IH SCH ×2 (10:16→23:10)
[2019-12-15] MEDS: CITALOPRAM HYDROBROMIDE 20 MG TABLET PO SCH (10:17)
[2019-12-15] MEDS: risperiDONE 1 MG TABLET PO SCH ×2 (10:17→21:34)
[2019-12-15] MEDS: PRENATAL VITAMINS W/ FOLIC ACID TABLET (FP) PO SCH (10:17)
[2019-12-15] MEDS: BENZTROPINE MESYLATE 1 MG TABLET PO SCH ×2 (10:17→21:33)
[2019-12-15] MEDS: NICOTINE 21 MG/24 HOURS TOPICAL PATCH TD SCH (10:19)
[2019-12-15] MEDS: MINERAL OIL/PETROLAT/WATER TOPICAL CREAM 113 GM JAR TP SCH (10:50)
[2019-12-15] MEDS: traZODone HCL 50 MG TABLET (FP) PO SCH (21:33)
[2019-12-15] MEDS: THIAMINE HCL 100 MG TABLET (FP) PO SCH (21:33)
[2019-12-15] MEDS: MELATONIN 5 MG TABLETS PO PRN (21:34)
[2019-12-16] MEDS: HYDROCORTISONE 0.5% TOPICAL CREAM 30 GM TUBE TP SCH ×3 (06:51→23:06)
[2019-12-16] MEDS: CITALOPRAM HYDROBROMIDE 20 MG TABLET PO SCH (10:21)
[2019-12-16] MEDS: BENZTROPINE MESYLATE 1 MG TABLET PO SCH ×2 (10:21→22:14)
[2019-12-16] MEDS: PRENATAL VITAMINS W/ FOLIC ACID TABLET (FP) PO SCH (10:21)
[2019-12-16] MEDS: risperiDONE 1 MG TABLET PO SCH ×2 (10:21→22:15)
[2019-12-16] MEDS: MINERAL OIL/PETROLAT/WATER TOPICAL CREAM 113 GM JAR TP SCH (10:22)
[2019-12-16] MEDS: BUDESONIDE/FORMETEROL FUMARATE 80/4.5 mcg INHALER IH SCH ×2 (10:22→22:15)
[2019-12-16] MEDS: NICOTINE 21 MG/24 HOURS TOPICAL PATCH TD SCH (10:22)
[2019-12-16] MEDS: TOLNAFTATE 1% CREAM 15 GM TUBE TP SCH ×2 (10:23→22:15)
[2019-12-16] MEDS: COLLOIDAL OATMEAL 1 BAR EACH TP PRN (10:24)
[2019-12-16] MEDS: ACETAMINOPHEN 325 MG TABLET (FP) PO PRN (20:21)
[2019-12-16] MEDS: THIAMINE HCL 100 MG TABLET (FP) PO SCH (22:14)
[2019-12-16] MEDS: traZODone HCL 50 MG TABLET (FP) PO SCH (22:15)
[2019-12-16] MEDS: ALBUTEROL SO4 HFA INHALER IH PRN (22:17)
[2019-12-17] MEDS ORDERED: PT OWN MED DRAWER 7, Y5N ONE ×2 (06:06→09:33)
[2019-12-17] MEDS: HYDROCORTISONE 0.5% TOPICAL CREAM 30 GM TUBE TP SCH ×3 (07:25→21:22)
[2019-12-17] MEDS: BUDESONIDE/FORMETEROL FUMARATE 80/4.5 mcg INHALER IH SCH ×2 (10:40→21:22)
[2019-12-17] MEDS: NICOTINE 21 MG/24 HOURS TOPICAL PATCH TD SCH (10:40)
[2019-12-17] MEDS: MINERAL OIL/PETROLAT/WATER TOPICAL CREAM 113 GM JAR TP SCH (10:41)
[2019-12-17] MEDS: TOLNAFTATE 1% CREAM 15 GM TUBE TP SCH ×2 (10:41→21:23)
[2019-12-17] MEDS: PRENATAL VITAMINS W/ FOLIC ACID TABLET (FP) PO SCH (10:42)
[2019-12-17] MEDS: CITALOPRAM HYDROBROMIDE 20 MG TABLET PO SCH (10:42)
[2019-12-17] MEDS: risperiDONE 1 MG TABLET PO SCH ×2 (10:42→21:23)
[2019-12-17] MEDS: BENZTROPINE MESYLATE 1 MG TABLET PO SCH ×2 (10:42→21:21)
[2019-12-17] MEDS: ACETAMINOPHEN 325 MG TABLET (FP) PO PRN (13:04)
[2019-12-17] MEDS: THIAMINE HCL 100 MG TABLET (FP) PO SCH (21:23)
[2019-12-17] MEDS: traZODone HCL 50 MG TABLET (FP) PO SCH (21:23)
[2019-12-18] MEDS: HYDROCORTISONE 0.5% TOPICAL CREAM 30 GM TUBE TP SCH ×3 (06:54→21:28)
[2019-12-18] MEDS: BUDESONIDE/FORMETEROL FUMARATE 80/4.5 mcg INHALER IH SCH ×2 (10:44→21:28)
[2019-12-18] MEDS: NICOTINE 21 MG/24 HOURS TOPICAL PATCH TD SCH (10:44)
[2019-12-18] MEDS: PRENATAL VITAMINS W/ FOLIC ACID TABLET (FP) PO SCH (10:45)
[2019-12-18] MEDS: risperiDONE 1 MG TABLET PO SCH ×2 (10:45→21:27)
[2019-12-18] MEDS: BENZTROPINE MESYLATE 1 MG TABLET PO SCH ×2 (10:45→21:28)
[2019-12-18] MEDS: TOLNAFTATE 1% CREAM 15 GM TUBE TP SCH ×2 (10:45→21:29)
[2019-12-18] MEDS: MINERAL OIL/PETROLAT/WATER TOPICAL CREAM 113 GM JAR TP SCH (10:46)
[2019-12-18] MEDS: CITALOPRAM HYDROBROMIDE 20 MG TABLET PO SCH (10:46)
[2019-12-18] MEDS ORDERED: PT OWN MED DRAWER 7, Y5N ONE ×3 (10:47→20:38)
[2019-12-18] MEDS: THIAMINE HCL 100 MG TABLET (FP) PO SCH (21:27)
[2019-12-18] MEDS: traZODone HCL 50 MG TABLET (FP) PO SCH (21:27)
[2019-12-19] MEDS: HYDROCORTISONE 0.5% TOPICAL CREAM 30 GM TUBE TP SCH ×3 (06:39→21:24)
[2019-12-19] MEDS: PRENATAL VITAMINS W/ FOLIC ACID TABLET (FP) PO SCH (10:41)
[2019-12-19] MEDS: risperiDONE 1 MG TABLET PO SCH ×2 (10:41→21:23)
[2019-12-19] MEDS: MINERAL OIL/PETROLAT/WATER TOPICAL CREAM 113 GM JAR TP SCH (10:41)
[2019-12-19] MEDS: NICOTINE 21 MG/24 HOURS TOPICAL PATCH TD SCH (10:42)
[2019-12-19] MEDS: BENZTROPINE MESYLATE 1 MG TABLET PO SCH ×2 (10:42→21:24)
[2019-12-19] MEDS: CITALOPRAM HYDROBROMIDE 20 MG TABLET PO SCH (10:43)
[2019-12-19] MEDS ORDERED: PT OWN MED DRAWER 7, Y5N ONE (10:43)
[2019-12-19] MEDS: BUDESONIDE/FORMETEROL FUMARATE 80/4.5 mcg INHALER IH SCH ×2 (10:44→21:24)
[2019-12-19] MEDS: TOLNAFTATE 1% CREAM 15 GM TUBE TP SCH ×2 (11:46→21:25)
[2019-12-19] MEDS: THIAMINE HCL 100 MG TABLET (FP) PO SCH (21:23)
[2019-12-19] MEDS: traZODone HCL 50 MG TABLET (FP) PO SCH (21:23)
[2019-12-20] MEDS: HYDROCORTISONE 0.5% TOPICAL CREAM 30 GM TUBE TP SCH ×3 (06:43→21:23)
--- NOTE | 2019-12-20 10:38 | PN ---
Psychiatric Progress Note Vital Signs: Vital Signs Period Temp Pulse Resp BP Sys/Hernandez Pulse Ox Last 24 Hr 98.0 F 74 16-18 114/74 Date of Session: 12/20/19 Chief Complaint:: " I want to know about medical marijuana." HPI: Patient admitted to 3W for alcohol, opioid, cocaine and cannabis dependence. Consultation ordered as patient is inquiring information on medical marijuana for PTSD. ROS: Patient is calm, cooperative, alert +oriented X3. Current Medications: Active Medications Generic Name Dose Route Start Last Admin Trade Name Freq PRN Reason Stop Dose Admin Acetaminophen 650 mg 12/13/19 12:16 12/17/19 13:04 Tylenol - PO 650 mg Q4H PRN Administration FEVER Al Hydroxide/Mg Hydroxide 30 ml 12/13/19 12:16 Mylanta Oral Suspension - PO Q6H PRN DYSPEPSIA Albuterol Sulfate 2 puff 12/13/19 12:18 12/16/19 22:17 Ventolin Hfa Inhaler - IH 2 unit Q4H PRN Administration SHORT OF BREATH/WHEEZING Benztropine Mesylate 0.5 mg 12/13/19 22:00 12/19/19 21:24 Cogentin - PO 0.5 mg BID LISA Administration Budesonide/Formoterol Fumarate 2 puff 12/13/19 22:00 12/19/19 21:24 Symbicort 80/4.5mcg - IH 2 puff BID LISA Administration Citalopram Hydrobromide 20 mg 12/14/19 10:00 12/19/19 10:43 Celexa - PO 20 mg DAILY LISA Administration Colloidal Oatmeal 1 applic 12/13/19 12:24 12/16/19 10:24 Aveeno Soap - TP 1 bar DAILY PRN Administration HYGEINE Eucalyptus/Menthol/Phenol/Sorbitol 1 each 12/13/19 12:16 Cepastat Lozenge - MM Q4H PRN SORE THROAT Guaifenesin 10 ml 12/13/19 12:16 Robitussin - PO Q6H PRN COUGH Hydrocortisone 1 applic 12/13/19 14:00 12/20/19 06:43 Hytone 0.5% Cream - TP Not Given TID LISA Ibuprofen 400 mg 12/13/19 12:16 Motrin - PO Q6H PRN Pain level 4-6 Loperamide HCl 4 mg 12/13/19 12:16 Imodium - PO Q6H PRN DIARRHEA Magnesium Citrate 300 ml 12/13/19 12:16 Citroma - PO Q48H PRN CONSTIPATION Magnesium Hydroxide 30 ml 12/13/19 12:16 Milk Of Magnesia - PO DAILY PRN CONSTIPATION Melatonin 5 mg 12/13/19 22:00 12/15/19 21:34 Melatonin PO 5 mg HS PRN Administration INSOMNIA Multi-Ingredient Lotion 1 applic 12/13/19 14:15 12/19/19 10:41 Eucerin (Small Jar) - TP Not Given DAILY LISA Nicotine 21 mg 12/14/19 10:00 12/19/19 10:42 Nicoderm Patch - TD 21 mg DAILY LISA Administration Nicotine Polacrilex 4 mg 12/13/19 12:16 Nicorette Gum - BUC Q2H PRN NICOTINE REPLACEMENT RX Multivit/Folic Acid/Iron 1 tab 12/14/19 10:00 12/19/19 10:41 Vitamins (Sjr) - PO 1 tab DAILY LISA Administration Pseudoephedrine/Triprolidine 1 combo 12/13/19 12:16 Actifed - PO TID PRN NASAL CONGESTION Risperidone 1 mg 12/14/19 15:05 12/19/19 21:23 Risperdal - PO 1 mg BID LISA Administration Thiamine HCl 100 mg 12/13/19 22:00 12/19/19 21:23 Vitamin B1 - PO 100 mg HS LISA Administration Tolnaftate 1 applic 12/13/19 22:00 12/19/19 21:25 Tinactin 1% Cream - TP Not Given BID LISA Trazodone HCl 50 mg 12/14/19 22:00 12/19/19 21:23 Desyrel - PO 50 mg HS LISA Administration Medication(s) Change(s): No. Current Side Effect: No Lab tests ordered: No Lab tests reviewed: Yes Provider note:: Patient inquiring information of medical marijuana for PTSD. Patient informed that medical marijuana is not prescribed in rehab. Patient encouraged to seek therapy on the outside and to speak to her outpatient psychatrist concerning the possibility of treating her history of PTSD with Medical marijuana. Medications reviewed. Patient reports stable mood and states that she is sleeping well. She denies experiencing nightmares but does report experiencing flashbacks during certain days. Patient educated on the importance of seeking therapy after discharge as the combination of therapy and psychotropic medications can be highly successful in treating PTSD. Patient satisfied and receptive to feedback. Total face to face time:: 25 Psychiatric Treatment Plan - Problem List (1) PTSD (post-traumatic stress disorder) Current Visit: Yes (2) Substance-induced sleep disorder Current Visit: Yes (3) Alcohol dependence Current Visit: Yes (4) Opioid dependence Current Visit: Yes (5) Cannabis dependence Current Visit: Yes (6) Cocaine dependence Current Visit: Yes (7) Schizoaffective disorder Current Visit: No Comment: As per self-report.On medications.
[2019-12-20] MEDS: BUDESONIDE/FORMETEROL FUMARATE 80/4.5 mcg INHALER IH SCH ×2 (10:44→21:25)
[2019-12-20] MEDS: NICOTINE 21 MG/24 HOURS TOPICAL PATCH TD SCH (10:45)
[2019-12-20] MEDS: TOLNAFTATE 1% CREAM 15 GM TUBE TP SCH ×2 (10:46→21:26)
[2019-12-20] MEDS: risperiDONE 1 MG TABLET PO SCH ×2 (10:47→21:24)
[2019-12-20] MEDS: PRENATAL VITAMINS W/ FOLIC ACID TABLET (FP) PO SCH (10:47)
[2019-12-20] MEDS: CITALOPRAM HYDROBROMIDE 20 MG TABLET PO SCH (10:47)
[2019-12-20] MEDS: BENZTROPINE MESYLATE 1 MG TABLET PO SCH ×2 (10:47→21:24)
[2019-12-20] MEDS: MINERAL OIL/PETROLAT/WATER TOPICAL CREAM 113 GM JAR TP SCH (10:48)
[2019-12-20] MEDS: ALBUTEROL SO4 HFA INHALER IH PRN (17:34)
[2019-12-20] MEDS ORDERED: PT OWN MED DRAWER 7, Y5N ONE ×2 (21:24→21:26)
[2019-12-20] MEDS: traZODone HCL 50 MG TABLET (FP) PO SCH (21:25)
[2019-12-20] MEDS: THIAMINE HCL 100 MG TABLET (FP) PO SCH (21:26)
[2019-12-21] MEDS ORDERED: PT OWN MED DRAWER 7, Y5N ONE (06:25)
[2019-12-21] MEDS: HYDROCORTISONE 0.5% TOPICAL CREAM 30 GM TUBE TP SCH ×3 (06:48→21:30)
[2019-12-21] MEDS: CITALOPRAM HYDROBROMIDE 20 MG TABLET PO SCH (10:27)
[2019-12-21] MEDS: BENZTROPINE MESYLATE 1 MG TABLET PO SCH ×2 (10:28→21:30)
[2019-12-21] MEDS: NICOTINE 21 MG/24 HOURS TOPICAL PATCH TD SCH (10:28)
[2019-12-21] MEDS: risperiDONE 1 MG TABLET PO SCH ×2 (10:28→21:29)
[2019-12-21] MEDS: PRENATAL VITAMINS W/ FOLIC ACID TABLET (FP) PO SCH (10:28)
[2019-12-21] MEDS: MINERAL OIL/PETROLAT/WATER TOPICAL CREAM 113 GM JAR TP SCH (10:28)
[2019-12-21] MEDS: TOLNAFTATE 1% CREAM 15 GM TUBE TP SCH ×2 (10:29→21:31)
[2019-12-21] MEDS: BUDESONIDE/FORMETEROL FUMARATE 80/4.5 mcg INHALER IH SCH ×2 (10:29→21:30)
[2019-12-21] MEDS: COLLOIDAL OATMEAL 1 BAR EACH TP PRN (17:31)
[2019-12-21] MEDS: ACETAMINOPHEN 325 MG TABLET (FP) PO PRN (18:24)
[2019-12-21] MEDS: THIAMINE HCL 100 MG TABLET (FP) PO SCH (21:29)
[2019-12-21] MEDS: traZODone HCL 50 MG TABLET (FP) PO SCH (21:30)
[2019-12-22] MEDS ORDERED: PT OWN MED DRAWER 7, Y5N ONE ×2 (06:31→08:29)
[2019-12-22] MEDS: HYDROCORTISONE 0.5% TOPICAL CREAM 30 GM TUBE TP SCH ×3 (06:31→21:21)
[2019-12-22] MEDS: CITALOPRAM HYDROBROMIDE 20 MG TABLET PO SCH (09:58)
[2019-12-22] MEDS: NICOTINE 21 MG/24 HOURS TOPICAL PATCH TD SCH (09:58)
[2019-12-22] MEDS: BENZTROPINE MESYLATE 1 MG TABLET PO SCH ×2 (09:58→21:20)
[2019-12-22] MEDS: MINERAL OIL/PETROLAT/WATER TOPICAL CREAM 113 GM JAR TP SCH (09:58)
[2019-12-22] MEDS: TOLNAFTATE 1% CREAM 15 GM TUBE TP SCH ×2 (09:59→21:21)
[2019-12-22] MEDS: BUDESONIDE/FORMETEROL FUMARATE 80/4.5 mcg INHALER IH SCH ×2 (09:59→21:21)
[2019-12-22] MEDS: risperiDONE 1 MG TABLET PO SCH ×2 (09:59→21:20)
[2019-12-22] MEDS: PRENATAL VITAMINS W/ FOLIC ACID TABLET (FP) PO SCH (09:59)
[2019-12-22] MEDS: ALBUTEROL SO4 HFA INHALER IH PRN (10:00)
[2019-12-22] MEDS: THIAMINE HCL 100 MG TABLET (FP) PO SCH (21:20)
[2019-12-22] MEDS: traZODone HCL 50 MG TABLET (FP) PO SCH (21:20)
[2019-12-23] MEDS: HYDROCORTISONE 0.5% TOPICAL CREAM 30 GM TUBE TP SCH ×3 (06:48→21:30)
[2019-12-23] MEDS ORDERED: PT OWN MED DRAWER 7, Y5N ONE ×2 (06:49→10:45)
[2019-12-23] MEDS: NICOTINE 21 MG/24 HOURS TOPICAL PATCH TD SCH (10:41)
[2019-12-23] MEDS: BENZTROPINE MESYLATE 1 MG TABLET PO SCH ×2 (10:42→21:30)
[2019-12-23] MEDS: PRENATAL VITAMINS W/ FOLIC ACID TABLET (FP) PO SCH (10:42)
[2019-12-23] MEDS: BUDESONIDE/FORMETEROL FUMARATE 80/4.5 mcg INHALER IH SCH ×2 (10:42→21:30)
[2019-12-23] MEDS: risperiDONE 1 MG TABLET PO SCH ×2 (10:42→21:29)
[2019-12-23] MEDS: TOLNAFTATE 1% CREAM 15 GM TUBE TP SCH ×2 (10:43→21:31)
[2019-12-23] MEDS: MINERAL OIL/PETROLAT/WATER TOPICAL CREAM 113 GM JAR TP SCH (10:43)
[2019-12-23] MEDS: CITALOPRAM HYDROBROMIDE 20 MG TABLET PO SCH (10:44)
[2019-12-23] MEDS: THIAMINE HCL 100 MG TABLET (FP) PO SCH (21:29)
[2019-12-23] MEDS: MELATONIN 5 MG TABLETS PO PRN (21:29)
[2019-12-23] MEDS: traZODone HCL 50 MG TABLET (FP) PO SCH (21:29)
[2019-12-24] MEDS: HYDROCORTISONE 0.5% TOPICAL CREAM 30 GM TUBE TP SCH ×3 (06:26→21:36)
[2019-12-24] MEDS ORDERED: PT OWN MED DRAWER 7, Y5N ONE ×3 (06:32→20:39)
[2019-12-24] MEDS: CITALOPRAM HYDROBROMIDE 20 MG TABLET PO SCH (10:38)
[2019-12-24] MEDS: risperiDONE 1 MG TABLET PO SCH ×2 (10:39→21:34)
[2019-12-24] MEDS: BENZTROPINE MESYLATE 1 MG TABLET PO SCH ×2 (10:39→21:34)
[2019-12-24] MEDS: NICOTINE 21 MG/24 HOURS TOPICAL PATCH TD SCH (10:39)
[2019-12-24] MEDS: BUDESONIDE/FORMETEROL FUMARATE 80/4.5 mcg INHALER IH SCH ×2 (10:39→21:36)
[2019-12-24] MEDS: PRENATAL VITAMINS W/ FOLIC ACID TABLET (FP) PO SCH (10:40)
[2019-12-24] MEDS: TOLNAFTATE 1% CREAM 15 GM TUBE TP SCH ×2 (10:41→21:36)
[2019-12-24] MEDS: MINERAL OIL/PETROLAT/WATER TOPICAL CREAM 113 GM JAR TP SCH (10:41)
[2019-12-24] MEDS: traZODone HCL 50 MG TABLET (FP) PO SCH (21:34)
[2019-12-24] MEDS: THIAMINE HCL 100 MG TABLET (FP) PO SCH (21:34)
[2019-12-24] MEDS: MELATONIN 5 MG TABLETS PO PRN (21:35)
[2019-12-25] MEDS: HYDROCORTISONE 0.5% TOPICAL CREAM 30 GM TUBE TP SCH ×3 (06:47→21:10)
[2019-12-25] MEDS ORDERED: PT OWN MED DRAWER 7, Y5N ONE ×2 (06:48→20:29)
[2019-12-25] MEDS: NICOTINE 21 MG/24 HOURS TOPICAL PATCH TD SCH (10:25)
[2019-12-25] MEDS: CITALOPRAM HYDROBROMIDE 20 MG TABLET PO SCH (10:25)
[2019-12-25] MEDS: PRENATAL VITAMINS W/ FOLIC ACID TABLET (FP) PO SCH (10:26)
[2019-12-25] MEDS: BENZTROPINE MESYLATE 1 MG TABLET PO SCH ×2 (10:26→21:09)
[2019-12-25] MEDS: BUDESONIDE/FORMETEROL FUMARATE 80/4.5 mcg INHALER IH SCH ×2 (10:27→21:11)
[2019-12-25] MEDS: MINERAL OIL/PETROLAT/WATER TOPICAL CREAM 113 GM JAR TP SCH (10:27)
[2019-12-25] MEDS: risperiDONE 1 MG TABLET PO SCH ×2 (10:27→21:10)
[2019-12-25] MEDS: TOLNAFTATE 1% CREAM 15 GM TUBE TP SCH ×2 (10:27→21:10)
[2019-12-25] MEDS: THIAMINE HCL 100 MG TABLET (FP) PO SCH (21:09)
[2019-12-25] MEDS: traZODone HCL 50 MG TABLET (FP) PO SCH (21:09)
[2019-12-26] MEDS ORDERED: PT OWN MED DRAWER 7, Y5N ONE ×2 (06:31→08:35)
[2019-12-26] MEDS: HYDROCORTISONE 0.5% TOPICAL CREAM 30 GM TUBE TP SCH ×3 (06:58→21:28)
[2019-12-26] MEDS: CITALOPRAM HYDROBROMIDE 20 MG TABLET PO SCH (10:23)
[2019-12-26] MEDS: NICOTINE 21 MG/24 HOURS TOPICAL PATCH TD SCH (10:23)
[2019-12-26] MEDS: risperiDONE 1 MG TABLET PO SCH ×2 (10:23→21:28)
[2019-12-26] MEDS: PRENATAL VITAMINS W/ FOLIC ACID TABLET (FP) PO SCH (10:23)
[2019-12-26] MEDS: BUDESONIDE/FORMETEROL FUMARATE 80/4.5 mcg INHALER IH SCH ×2 (10:23→21:29)
[2019-12-26] MEDS: MINERAL OIL/PETROLAT/WATER TOPICAL CREAM 113 GM JAR TP SCH (10:23)
[2019-12-26] MEDS: TOLNAFTATE 1% CREAM 15 GM TUBE TP SCH ×2 (10:24→21:29)
[2019-12-26] MEDS: BENZTROPINE MESYLATE 1 MG TABLET PO SCH ×2 (10:24→21:29)
--- NOTE | 2019-12-26 11:49 | PN ---
[facility] Progress Note Note: Patient is scheduled for discharge tomorrow. Scripts for 30 days supply of medications(Celexa 20 mg/day, Risperdal 1 mg/bid, Cogentin 0.5 mg/bid, Trazadone 50 mg/hs) will be electronically transmitted to [facility] at [address] [place] [id number]
[2019-12-26] MEDS: traZODone HCL 50 MG TABLET (FP) PO SCH (21:28)
[2019-12-26] MEDS: THIAMINE HCL 100 MG TABLET (FP) PO SCH (21:28)
[2019-12-26] MEDS: MELATONIN 5 MG TABLETS PO PRN (21:28)
[2019-12-27] MEDS: HYDROCORTISONE 0.5% TOPICAL CREAM 30 GM TUBE TP SCH ×3 (06:33→21:34)
--- NOTE | 2019-12-27 08:13 | PN ---
Psychiatric Progress Note Vital Signs: Vital Signs Period Temp Pulse Resp BP Sys/Hernandez Pulse Ox Last 24 Hr 98.0 F 54 17-18 141/92 Date of Session: 12/27/19 Chief Complaint:: Bizarre behavior HPI: Ms Amalia Phillips is a 39 years old female with history of Schizoaffective Disorder, polysubstance use(alcohol, heroin cocane, cannbis) and PMH of [place], Asthma, HTN admited from detox on 12/13/19 for inpatient rehabilitation treatment. Psychiatric reevaluation requested over concern that patient started displaying bizarre behavior yesterday evening and was talking to herself. Reportedly she was observed sitting on the radiator frame while in the bathroom, talking to herself in [place] islander, laughing inappropriately. She ignored instruction from staff and would not speak Trinid[place] as usual. As per staff, she came out of the bathroom and went to another bathroom and barricaded herself. then she was placed on 1:1 for safety. Patient was seen by Dr Hicks on 12/09/19 while admitted to detox[address] Dr Hicks' note read and appreciated. Apparently prior to admission to detox, patient wason Abilify 20 mg/bid, Trazadone 100 mg/s and Celexa 20 mg/day. Since patient was alledgely drowsy Risperdal 1 mg/bid was substituted for Abilify and Trazadone dosage was decreased to 25 mg/hs along with continuing Celexa 20 mg/day. Patient was seen by manual writer while in rehab and medications as prescribed by Dr Hicks were continued except Trazadone doasge was increased to 50 mg/hs since patient was complaining of insomnia. Patient was scheduled to be discharge today Current Medications: Active Medications Generic Name Dose Route Start Last Admin Trade Name Freq PRN Reason Stop Dose Admin Acetaminophen 650 mg 12/13/19 12:16 12/21/19 18:24 Tylenol - PO 650 mg Q4H PRN Administration FEVER Al Hydroxide/Mg Hydroxide 30 ml 12/13/19 12:16 Mylanta Oral Suspension - PO Q6H PRN DYSPEPSIA Albuterol Sulfate 2 puff 12/13/19 12:18 12/22/19 10:00 Ventolin Hfa Inhaler - IH 2 puff Q4H PRN Administration SHORT OF BREATH/WHEEZING Benztropine Mesylate 0.5 mg 12/13/19 22:00 12/26/19 21:29 Cogentin - PO 0.5 mg BID LISA Administration Budesonide/Formoterol Fumarate 2 puff 12/13/19 22:00 12/26/19 21:29 Symbicort 80/4.5mcg - IH Not Given BID LISA Citalopram Hydrobromide 20 mg 12/14/19 10:00 12/26/19 10:23 Celexa - PO 20 mg DAILY LISA Administration Colloidal Oatmeal 1 applic 12/13/19 12:24 12/21/19 17:31 Aveeno Soap - TP 1 bar DAILY PRN Administration HYGEINE Eucalyptus/Menthol/Phenol/Sorbitol 1 each 12/13/19 12:16 Cepastat Lozenge - MM Q4H PRN SORE THROAT Guaifenesin 10 ml 12/13/19 12:16 Robitussin - PO Q6H PRN COUGH Hydrocortisone 1 applic 12/13/19 14:00 12/27/19 06:33 Hytone 0.5% Cream - TP Not Given TID LISA Ibuprofen 400 mg 12/13/19 12:16 Motrin - PO Q6H PRN Pain level 4-6 Loperamide HCl 4 mg 12/13/19 12:16 Imodium - PO Q6H PRN DIARRHEA Magnesium Citrate 300 ml 12/13/19 12:16 Citroma - PO Q48H PRN CONSTIPATION Magnesium Hydroxide 30 ml 12/13/19 12:16 Milk Of Magnesia - PO DAILY PRN CONSTIPATION Melatonin 5 mg 12/13/19 22:00 12/26/19 21:28 Melatonin PO 5 mg HS PRN Administration INSOMNIA Multi-Ingredient Lotion 1 applic 12/13/19 14:15 12/26/19 10:23 Eucerin (Small Jar) - TP 1 applic DAILY LISA Administration Nicotine 21 mg 12/14/19 10:00 12/26/19 10:23 Nicoderm Patch - TD 21 mg DAILY LISA Administration Nicotine Polacrilex 4 mg 12/13/19 12:16 Nicorette Gum - BUC Q2H PRN NICOTINE REPLACEMENT RX Multivit/Folic Acid/Iron 1 tab 12/14/19 10:00 02/24/20 10:23 Vitamins (Sjr) - PO 1 tab DAILY LISA Administration Pseudoephedrine/Triprolidine 1 combo 12/13/19 12:16 Actifed - PO TID PRN NASAL CONGESTION Risperidone 1 mg 12/14/19 15:05 12/26/19 21:28 Risperdal - PO 1 mg BID LISA Administration Thiamine HCl 100 mg 12/13/19 22:00 12/26/19 21:28 Vitamin B1 - PO 100 mg HS LISA Administration Tolnaftate 1 applic 12/13/19 22:00 12/26/19 21:29 Tinactin 1% Cream - TP Not Given BID LISA Trazodone HCl 50 mg 12/14/19 22:00 12/26/19 21:28 Desyrel - PO 50 mg HS LISA Administration Current Side Effect: No Lab tests ordered: Yes Lab tests reviewed: Yes Provider note:: Patient interviewed by manual writer this morning. She was mildly agitated, uncooperative, argumentative at times expressing herself in [place] islander knowing well that manual writer does not speak [place] islander. She demands to speak to someone that speaks [place] islander and to a female psychiatrist. She at first admitted to hearing voices then denied it. She told manual writer that she was afraid that she might use after discharge. She denied S/H ideations Mental Status Exam - Mental Status Exam Alert and Oriented to: Time, Place, Person Cognitive Function: Fair Patient Appearance: Well Groomed Mood: Anxious, Irritable Affect: Appropriate Patient Behavior: Uncooperative, Talkative Speech Pattern: Clear Voice Loudness: Normal Thought Process: Intact Thought Disorder: Not Present Hallucinations: Auditory (Admits to hearing voices at first then denies) Suicidal Ideation: Denies Homicidal Ideation: Denies Insight/Judgement: Poor Sleep: Fair Appetite: Good Muscle strength/Tone: Normal Gait/Station: Normal Psychiatric Treatment Plan - Problem List (1) Schizoaffective disorder Current Visit: No Comment: As per self-report.On medications. (2) PTSD (post-traumatic stress disorder) Current Visit: Yes (3) Substance-induced sleep disorder Current Visit: Yes (4) Alcohol dependence Current Visit: Yes (5) Opioid dependence Current Visit: Yes (6) Cocaine dependence Current Visit: Yes (7) Cannabis dependence Current Visit: Yes (8) Nicotine dependence Current Visit: No Qualifiers: Nicotine product type: cigarettes Substance use status: in withdrawal Qualified Code(s): F17.213 - Nicotine dependence, cigarettes, with withdrawal (9) Asthma Current Visit: No Qualifiers: Asthma severity: mild Asthma persistence: intermittent Asthma complication type: with status asthmaticus Qualified Code(s): J45.22 - Mild intermittent asthma with status asthmaticus Initial treatment plan: Patient will be 2 PC's and tranferred out for evaluation. Case discussed with psychiatrist at [facility]
[2019-12-27] MEDS ORDERED: PT OWN MED DRAWER 7, Y5N ONE (09:05)
[2019-12-27] MEDS: NICOTINE 21 MG/24 HOURS TOPICAL PATCH TD SCH (09:51)
[2019-12-27] MEDS: CITALOPRAM HYDROBROMIDE 20 MG TABLET PO SCH (09:51)
[2019-12-27] MEDS: MINERAL OIL/PETROLAT/WATER TOPICAL CREAM 113 GM JAR TP SCH (09:51)
[2019-12-27] MEDS: BUDESONIDE/FORMETEROL FUMARATE 80/4.5 mcg INHALER IH SCH ×2 (09:51→21:34)
[2019-12-27] MEDS: PRENATAL VITAMINS W/ FOLIC ACID TABLET (FP) PO SCH (09:52)
[2019-12-27] MEDS: risperiDONE 1 MG TABLET PO SCH ×2 (09:52→21:33)
[2019-12-27] MEDS: BENZTROPINE MESYLATE 1 MG TABLET PO SCH ×2 (09:52→21:33)
[2019-12-27] MEDS: TOLNAFTATE 1% CREAM 15 GM TUBE TP SCH ×2 (09:53→21:34)
--- NOTE | 2019-12-27 11:58 | PN ---
[facility] Progress Note Note: Psychiatry Attending's note (follow-up) : Patient seen by the psychiatric team. Conversion to 2 PC status : done. Issues : alteration of mental status. Hypomania. Psychosis. Bizarre behavior, mood dysregulation, thought disorganization. Ms Nunn needs higher level of inpatient psychiatric care. Dr Sauer has already contacted [facility] emergency department. In the meantime, search for hospital beds has been initiated by Dr Hicks. Contact established with : [facility] ([phone]) : referral material requested. [facility] [phone] : no bed. [facility] : no bed. [facility] : no bed. [facility] : no bed today. [facility] : no bed. [facility] : no response. [facility] : no bed. [facility] : no beds. [facility] : no bed. [facility] : no bed. [facility] : no response[facility] : no response. [facility] : voice mail. [facility] : no bed. [facility] : no bed. [facility] : no bed. [facility] : no bed. [facility] : voice mail. [facility] : voice mail. [facility] : no bed available. Patient remains under Constant Observation for unpredictable behavior. Pending transfer to another institution for psychiatric inpatient care.
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
--- NOTE | 2019-12-27 13:53 | DS ---
[facility] Rehab Discharge Summary - [facility] Rehab Discharge Summary Admission Date: 12/13/19 Discharge Date: 12/29/19 - History Present History: Alcohol dependence, Cannabis dependence, Cocaine dependence Pertinent Past History: Ms. Amalia Phillips is a 39 yo woman admitted for heroin, cocaine, crack and marijuana use. PMH: Asthma, prior albuterol and symbicort Psych: depression, no SI Substance use History Heroin; first use age 13 y,quantity: 4 bags, prior IV, current snorting Alcohol: first use age 13 y, quantity 1-2 beers per month Cocaine: first use age 13 y, 4 bags daily, inhale Nicotine: one ppd - Discharge Physical Exam Vital Signs: Vital Signs Temperature 98.0 F 12/27/19 06:28 Pulse Rate 54 L 12/27/19 06:28 Respiratory Rate 18 12/27/19 06:28 Blood Pressure 141/92 12/27/19 06:28 O2 Sat by Pulse Oximetry (%) Pertinent Admission Physical Exam Findings: P/E: General: Pacing the hallway at times, easily agitated, HEENTM: PERRLA, normocephalic Neck: supple Heart:s1 s2 audible, regular Lungs: clear, respirations easy and unlabored ABD: +BS MSK: full weight bearing, steady gait, full ROM Neuro: CN 2-12 intact - Treatment Discharge Condition: Discharge condition good (Medically stable for discharge. Patient will be transferred to psychiatric hospital for care. Please see previous note and psychiatric service note. 2 PC done.) Hospital Course: Patient has been displaying abnormal behavior and is on a 1:1 observation for safety. Please see psychiatric notes. Consult placed requesting re-evaluation of patient. 12/27/2019: Patient will be transferred to a psychiatric facility. 12/28/2019: Patient has not be transferred yet because report and consolation between the sending and accepting psychiatrist has not occurred yet. Patient remains on 1:1 observation for safety and continues to be medically stable. 12/29/2019: during the previous night, according to the nurse this patient's behavior escalated, she was screaming and running up and down the hallways, then locked herself in the bathroom. The police were called and took the patient to the nearest psychiatric facility. - Medication Discharge Medications: Ambulatory Orders Naltrexone HCl 50 mg PO DAILY 01/22/18 Albuterol Sulfate Inhaler - [Ventolin HFA Inhaler -] 2 puff IH Q4H PRN #1 inhaler 01/26/18 Budesonide/Formeterol Fumarate [SYMBICORT 80/4.5mcg -] 2 puff IH BID #1 inhaler 01/26/18 traZODone HCL [Trazodone HCl] 100 mg PO HS 12/08/19 Benztropine Mesylate [Cogentin -] 0.5 mg PO BID 12/13/19 Risperidone [Risperdal] 1 mg PO BID 12/13/19 Benztropine Mesylate [Cogentin -] 0.5 mg PO BID #30 tablet 12/26/19 Citalopram Hydrobromide [Celexa -] 20 mg PO DAILY #30 tablet 12/26/19 Risperidone [Risperdal -] 1 mg PO BID #60 tablet 12/26/19 traZODone HCL [Desyrel -] 50 mg PO HS #30 tablet 12/26/19 - Discharge Instructions Diet, activity, other medical instructions: Diet: Activity: Other medical instructions: - Diagnosis (1) Alcohol dependence Status: Active (2) Opioid dependence Status: Active (3) Cannabis dependence Status: Acute (4) Cocaine dependence Status: Acute - Follow-up Referral Minutes to complete discharge: 20 - AMA Additional Comments: patient will be transferred to a psychiatric hospital for further care. 12/28/2019: Patient has not be transferred yet because report and consolation between the sending and accepting psychiatrist has not occurred yet. Patient remains on 1:1 observation for safety and continues to be medically stable. 12/29/2019: during the previous night, according to the nurse this patient's behavior escalated, she was screaming and running up and down the hallways, then locked herself in the bathroom. The police were called and took the patient to the nearest psychiatric facility.
--- NOTE | 2019-12-27 15:59 | PN ---
[facility] Progress Note Note: Psychiatry Attending's note (follow-up) : Career Center Director called Dr Raines, psychiatrist at [place]. At [phone]. Not available. Message left. Transfer pending. Discussed with [facility] nurse Shana. Patient, in the meantime, remains under Constant Observation. However, if escalation of behavior, case becomes an emergency. Therefore this patient could no longer be kept at [address] [facility] will be called. Case to be endorsed to ED psychiatric staff. It is imperative, in such circumstance, that [place]/EMS be activated for assistance. Patient to be sent to the emergency department ([facility]) for safety. This contingency plan has been revisited, via telephone, with RN plastics fabrication supervisor Rhona Brown.
[2019-12-27] MEDS: THIAMINE HCL 100 MG TABLET (FP) PO SCH (21:33)
[2019-12-27] MEDS: traZODone HCL 50 MG TABLET (FP) PO SCH (21:33)
[2019-12-27] MEDS: MELATONIN 5 MG TABLETS PO PRN (21:34)
[2019-12-28] MEDS: HYDROCORTISONE 0.5% TOPICAL CREAM 30 GM TUBE TP SCH ×3 (06:36→21:22)
[2019-12-28 07:51] VITALS: BP 122/83; PULSE 67; TEMP 97.8
[2019-12-28] MEDS: CITALOPRAM HYDROBROMIDE 20 MG TABLET PO SCH (09:30)
[2019-12-28] MEDS: BENZTROPINE MESYLATE 1 MG TABLET PO SCH ×2 (09:30→21:22)
[2019-12-28] MEDS: risperiDONE 1 MG TABLET PO SCH (09:30)
[2019-12-28] MEDS: PRENATAL VITAMINS W/ FOLIC ACID TABLET (FP) PO SCH (09:31)
[2019-12-28] MEDS: BUDESONIDE/FORMETEROL FUMARATE 80/4.5 mcg INHALER IH SCH ×2 (09:31→21:24)
[2019-12-28] MEDS: NICOTINE 21 MG/24 HOURS TOPICAL PATCH TD SCH (09:31)
[2019-12-28] MEDS: TOLNAFTATE 1% CREAM 15 GM TUBE TP SCH ×2 (09:32→21:24)
[2019-12-28] MEDS: MINERAL OIL/PETROLAT/WATER TOPICAL CREAM 113 GM JAR TP SCH (09:56)
--- NOTE | 2019-12-28 14:00 | PN ---
S Progress Note Note: While patient is awaiting available psychiatric bed, Risperdal dosage is increased to 2 mg/bid
--- NOTE | 2019-12-28 14:16 | PN ---
[facility] Progress Note Note: Psychiatry Attending's note (follow-up) : Spoke to Dr Raines at [phone]. She said that she did not receive any report from [facility]. Case presented to Dr Raines, via telephone, by this technical document writer. At [phone]. Referral material re-faxed to [facility]. Response from Dr Raines : pending.
--- NOTE | 2019-12-28 18:37 | PN ---
[facility] Progress Note Note: Psychiatry Attending's note (follow-up) : Contacted, via telephone, by From the [facility]. Re : referral packet for review (pending transfer). It appears that documents have NOT reached [facility]. Addiction Medicine Physician met with evening staff. Documents sorted out. Re-faxed to [facility] for the second time. In the meantime, Ms Holland remains under Constant Observation for safety. Pending transfer to [facility]. Liaison-Psychiatry will follow in AM.
[2019-12-28] MEDS: traZODone HCL 50 MG TABLET (FP) PO SCH (21:22)
[2019-12-28] MEDS: MELATONIN 5 MG TABLETS PO PRN (21:22)
[2019-12-28] MEDS: THIAMINE HCL 100 MG TABLET (FP) PO SCH (21:22)
[2019-12-28] MEDS ORDERED: risperiDONE 2 MG TABLET PO SCH (22:00)
--- NOTE | 2019-12-29 04:27 | PN ---
[facility] Progress Note Note: ASKED TO EVALUATE PATIENT PATIENT IS SCREAMING AND PACING THE UNIT EASILY AGITATED AND NOT RECEPTIVE TO STAFF. SHE IS SEEN TALKING TO HER SELF. WALKING IN TO BATHROOMS AND CLOSING DOORS EXPRESSING SHE WANTS TO BE ALONE AND SHE NEEDS TO LEAVE. SHE REPORTS SHE HAS BEEN HERE WAY TOO LONG AND SHE IS LEAVING. SHE CURRENTLY HAS HER BELONGINGS ON HER BED AND SORTING ITEMS TO PACK AND LEAVE. BATTERY LOADER ATTEMPTS TO APPROACH CLIENT IN A CALM MANNER IS NOT RECEIVED SHE IS NOT RESPONDING TO MY QUESTIONS. COMMUNICATION TO PATIENT THRU UNIT TECH [place] WHO SHE SEEMS COMFORTABLE SPEAKING WITH. SHE DENIES SI/HI/AVH DESPITE TALKING TO SELF. BATTERY LOADER IS UNABLE TO UNDERSTAND WHAT SHE IS SAYING JARGON IS UNCLEAR. ATTEMPTS TO REDIRECT CLIENT BEHAVIOR AND ENCOURAGEMENT TO REMAIN UNTIL THE MORNING PENDING TRANSFER TO ANOTHER FACILITY AND REEVALUATION BY PSYCH NOT SUCCESSFUL CLIENT INSISTS ON LEAVING. A/O X2 WOLOF SPEAKING CURRENTLY ON 1:1 OBSERVATION FOR SAFETY 2PC PENDING TRANSFER TO PSYCH FACILITY PSYCH NOTES APPRECIATED ATTEMPT TO CONTACT ATTENDING DR. DAMON (PSYCH) BY RN UNSUCCESSFUL WILL TRANSFER CLIENT OUT 911 FOR EDP 2/ TO [facility] DC GIVEN PSYCH HX PATIENT TRANSFERRED TO [facility]. LEFT UNIT WILLINGLY VIA STRETCHER ACCOMPANIED BY GONSALO WHITE/ CLIENT WAS SIGNED OUT TO DR. ARORA ARNOT [facility] PSYCH ER ATTENDING COPY OF PATIENTS MEDICAL RECORD TO INCLUDE PSYCH NOTES SENT WITH PATIENT VIA [employer].
== END 2019-12-29 04:32 | DRG 895 ==
LOC: YASAS 12:35 → Y3E 12:36
PROVIDERS: ADMIT Allergy & Immunology; ATTEND Allergy & Immunology
PROC: HZ42ZZZ Group Counseling for Substance Abuse Treatment, Cognitive-Behavioral (ICD-10-PCS; principal; 2019-12-13)
DX: F10.20 Alcohol dependence, uncomplicated (principal); F11.20 Opioid dependence, uncomplicated; F14.20 Cocaine dependence, uncomplicated; F19.282 Other psychoactive substance dependence with psychoactive substance-induced sleep disorder; J45.22 Mild intermittent asthma with status asthmaticus; F12.20 Cannabis dependence, uncomplicated; F17.210 Nicotine dependence, cigarettes, uncomplicated; F32.9 Major depressive disorder, single episode, unspecified; F25.9 Schizoaffective disorder, unspecified; F43.10 Post-traumatic stress disorder, unspecified; I10 Essential (primary) hypertension; D64.9 Anemia, unspecified; L85.3 Xerosis cutis; Z86.19 Personal history of other infectious and parasitic diseases; Z87.42 Personal history of other diseases of the female genital tract; Z91.013 Allergy to seafood
CPT/HCPCS: J2794; Q2036

== ENCOUNTER 2020-05-23 09:57 | Inpatient (IN) | payer OTHER ==
--- NOTE | 2020-05-23 10:16 | BHS.RME ---
Substance Use & Tx History - Substance Use History Alcohol Substance amount: 2 pints Vodka Frequency of use: Daily Substance route: Oral Date of Last Use: 05/20/20 (First use age 12. Seizure 3 days ago. Blackouts, last was weeks ago. Admits to an eye groundskeeping maintenance) Heroin Substance amount: 10 bags Frequency of use: Daily Substance route: Injection (ex: intravenous or skin popping) Date of Last Use: 05/20/20 (First use age 15 y.. NO OD, No Narcan) Cannabis Substance amount: $40 Frequency of use: Daily Substance route: Smoking Date of Last Use: 05/18/20 (First use age 13) Nicotine Substance amount: 2 packs Frequency of use: Daily Substance route: Smoking Date of Last Use: 05/20/20 (First use age 13 y) Synthetic Cannabinoid Substance amount: 1-2 joints Frequency of use: Less than 3 times per week Substance route: Smoking Date of Last Use: 05/18/20 (First use age 28's) - Last Treatment Date of last treatment: 03/22 to 03/25/20 Treatment type: Substance Use Disorder (OCTAVIO) Where was last treatment: Detox Physical/Psych/Mental Status - Behavior General Behavior: Increased activity (restlessness, agitation) Eye Contact: Normal - Cooperativeness Cooperativeness: Cooperative - Thinking Thought Processes: Tight Thought content: Future oriented - Physical Health Problems Is patient presently having any pain?: Yes (left knee) Does patient presently have any injuries (include location): No Does patient currently have a fever: No COWS - Scale Resting Pulse: 1= IN 81-100 Sweatin=Flushed/Facial Moisture Restless Observation: 3= Extraneous Movement Pupil Size: 0= Normal to Room Light Bone or Joint Aches: 2= Severe Diffuse Aches Runny Nose/ Eye Tearin= Nasal Congestion GI Upset > 30mins: 2= Nausea/Diarrhea Tremor Observation: 2= Slight Tremor Visible Yawning Observation: 0= None Anxiety or Irritability: 1=Feels Anxious/Irritable Goose Flesh Skin: 0=Smooth Skin COWS Score: 14 CIWA Nausea/Vomitin Muscle Tremors: 2 Anxiety: 3 Agitation: 1-Slight > Activity Paroxysmal Sweats: 3 Orientation: 2-Disoriented Date<2 days Tacttile Disturbances: 0-None Auditory Disturbances: 0-None Visual Disturbances: 1-Very Mild Sensitivity Headache: 2-Mild CIWA-Ar Total Score: 17
--- NOTE | 2020-05-23 11:14 | HP ---
COWS - Scale Resting Pulse: 1= IN 81-100 Sweatin=Flushed/Facial Moisture Restless Observation: 3= Extraneous Movement Pupil Size: 0= Normal to Room Light Bone or Joint Aches: 2= Severe Diffuse Aches Runny Nose/ Eye Tearin= Nasal Congestion GI Upset > 30mins: 2= Nausea/Diarrhea Tremor Observation: 2= Slight Tremor Visible Yawning Observation: 0= None Anxiety or Irritability: 1=Feels Anxious/Irritable Goose Flesh Skin: 0=Smooth Skin COWS Score: 14 CIWA Score Nausea/Vomitin Muscle Tremors: 2 Anxiety: 3 Agitation: 1-Slight > Activity Paroxysmal Sweats: 3 Orientation: 2-Disoriented Date<2 days Tacttile Disturbances: 0-None Auditory Disturbances: 0-None Visual Disturbances: 1-Very Mild Sensitivity Headache: 2-Mild CIWA-Ar Total Score: 17 - Admission Criteria OASAS Guidelines: Admission for Medically Managed Detox: Requires at least one of the followin. CIWA greater than 12 2. Seizures within the past 24 hours 3. Delirium tremens within the past 24 hours 4. Hallucinations within the past 24 hours 5. Acute intervention needed for co occurring medical disorder 6. Acute intervention needed for co occurring psychiatric disorder 7. Severe withdrawal that cannot be handled at a lower level of care (continued vomiting, continued diarrhea, abnormal vital signs) requiring intravenous medication and/or fluids 8. Admitting History and Physical - Admission Chief Complaint: " I need to stop using drugs." History of Present Illness: 39 year old female with history of opioid dependence , alcohol dependence with withdrawals, cannabis use disorder, nicotine dependence and K-2 use disorder. She was found letharic on streets and brought to [facility] but not given any medications and referred here for detox. She was last here from 03/22- 03/25/20 received valium/methadone detox protocol and no aftercare. She relapsed immediately after that. Alcohol: 2 pints vodka daily, started at age 12 and last taken 3 days ago; has had withdrawal seizure 3 days ago, blackout 1 week ago, endorses the need for a daily eye resident medical officer. Heroin: 10 bags daily IV and IN, started at age 13 and last used 3 days ago; has not overdose and does not carry narcan. Marijuana: $40 daily, smoking since age 13, last used 5 days ago. K2: 1-2 joints per week, started in 30's and last used 5 days ago. Nicotine: 2 packs per day, started smoking at age 13 PMH: L Knee "dislocated" months ago, [place], Genital Herpes Psurg: None Psych: Schizophrenia - off meds She is homeless and in custodial, but has no legal problems. CIWA=17 COWS= 14 She meets criteria for detox as she is at high risk for relapse and she has poor insight into her disease. She also has untreated psychiatric co-morbidity. She has also agree for completion of detox and then to proceed to rehab. History Source: Patient Limitations to Obtaining History: No Limitations - Past Medical History ...LMP: 12/12/19 Psych: Yes: Schizophrenia - Past Surgical History Past Surgical History: Yes: None - Smoking History Smoking history: Current every day smoker Have you smoked in the past 12 months: Yes Aproximately how many cigarettes per day: 20 - Alcohol/Substance Use Hx Alcohol Use: Yes History of Substance Use: reports: Heroin, Marijuana Date of Last Use: 05/19/20 - Social History Usual Living Arrangement: Yes: Other Do you think of yourself as: Declined to answer ADL: Independent Occupation: unemployed History of Recent Travel: No Admission ROS [facility] - [facility] Allergies/Adverse Reactions: Allergies Allergy/AdvReac Type Severity Reaction Status Date / Time shellfish derived Allergy Mild Hives Verified 03/22/20 18:45 No Known Drug Allergies Allergy Hives Verified 03/22/20 18:45 buprenorphine [From Suboxone] AdvReac Severe Swelling Verified 05/23/20 11:08 naloxone [From Suboxone] AdvReac Severe Swelling Verified 05/23/20 11:08 Exam Limitations: No Limitations - Ebola screening Have you traveled outside of the country in the last 21 days: No Have you had contact with anyone from an Ebola affected area: No Have you been sick,other than usual withdrawal symptoms: No Do you have a fever: No - Review of Systems Constitutional: Chills, Diaphoresis EENT: reports: No Symptoms Reported Respiratory: reports: No Symptoms reported Cardiac: reports: No Symptoms Reported GI: reports: No Symptoms Reported : reports: No Symptoms Reported Musculoskeletal: reports: No Symptoms Reported Integumentary: reports: No Symptoms Reported Neuro: reports: No Symptoms reported Endocrine: reports: No Symptoms Reported Hematology: reports: No Symptoms Reported Psychiatric: reports: Judgement Intact, Mood/Affect Appropiate, Orientated x3, Agitated, Anxious Other Systems: Reviewed and Negative Patient History - Patient Medical History Hx Anemia: No Hx Asthma: Yes Hx Chronic Obstructive Pulmonary Disease (COPD): No Hx Cancer: No Hx Cardiac Disorders: No Hx Congestive Heart Failure: No Hx Hypertension: No Hx Hypercholesterolemia: No Hx Pacemaker: No HX Cerebrovascular Accident: No Hx Seizures: No Hx Dementia: No Hx Diabetes: No Hx Gastrointestinal Disorders: No Hx Liver Disease: No Hx Genitourinary Disorders: No Hx Sexually Transmitted Disorders: Yes (Genital Herpes, HPV) Hx Renal Disease (ESRD): No Hx Thyroid Disease: No Hx Human Immunodeficiency Virus (HIV): No Hx Hepatitis C: No Hx Depression: Yes Hx Suicide Attempt: Yes (x6 by cutting wrist) Hx Bipolar Disorder: Yes Hx Schizophrenia: No - Patient Surgical History Past Surgical History: No Hx Neurologic Surgery: No Hx Cataract Extraction: No Hx Cardiac Surgery: No Hx Lung Surgery: No Hx Breast Surgery: No Hx Breast Biopsy: No Hx Abdominal Surgery: No Hx Appendectomy: No Hx Cholecystectomy: No Hx Genitourinary Surgery: No Hx Section: No Hx Orthopedic Surgery: No Anesthesia Reaction: No - PPD History Previous Implant?: Yes Documented Results: Negative w/proof Implanted On Prior R Admission?: Yes Date: 12/10/19 Results: 0mm PPD to be Administered?: No - Reproductive History Last Menstrual Period: 12/12/19 - Smoking Cessation Smoking history: Never smoked Have you smoked in the past 12 months: No Aproximately how many cigarettes per day: 20 Cigars Per Day: 1 Hx Chewing Tobacco Use: No Initiated information on smoking cessation: Yes 'Breaking Loose' booklet given: 05/23/20 - Substances abused Alcohol Substance route: Oral Frequency: Daily Amount used: 2 pints vodka Age of first use: 12 Date of last use: 05/20/20 Heroin Substance route: Inhalation Frequency: Daily Amount used: 10 bags Age of first use: 15 Date of last use: 05/20/20 Marijuana/Hashish Substance route: Smoking Frequency: Daily Amount used: $40 Age of first use: 13 Date of last use: 05/18/20 K2/Spice Substance route: Smoking Frequency: 1-2 times per week Amount used: 1-2 joints Age of first use: 13 Date of last use: 05/18/20 Admission Physical Exam [facility] - Physical General Appearance: Yes: Mild Distress, Tremorous, Irritable, Sweating, Anxious HEENTM: Yes: EOMI, Hearing grossly Normal, Normal ENT Inspection, Normocephalic, Normal Voice, SARA, Pharynx Normal, Tm's normal Respiratory: Yes: Chest Non-Tender, Lungs Clear, Normal Breath Sounds, No Respiratory Distress, No Accessory Muscle Use Neck: Yes: No masses,lesions,Nodules, Supple, Trachea in good position Breast: Yes: Within Normal Limits, Axillae without masses, Breasts Symetrical, No Discharge, No masses Cardiology: Yes: Regular Rhythm, Regular Rate, S1, S2 Abdominal: Yes: Normal Bowel Sounds, Non Tender, Flat, Soft Genitourinary: Yes: Within Normal Limits Back: Yes: Normal Inspection Musculoskeletal: Yes: full range of Motion, Gait Steady, Pelvis Stable Extremities: Yes: Normal Capillary Refill, Normal Inspection, Normal Range of Motion, Non-Tender Neurological: Yes: computer software engineer II-XII NML intact, Fully Oriented, Alert, Motor Strength 5/5, Normal Mood/Affect, Normal Response Integumentary: Yes: Normal Color, Dry, Warm Lymphatic: Yes: Within Normal Limits - Diagnostic (1) Alcohol dependence with withdrawal, uncomplicated Current Visit: Yes Status: Acute Comment: . (2) Cannabis dependence Current Visit: Yes Status: Acute (3) Cannabis dependence, uncomplicated Current Visit: Yes Status: Acute (4) DEPRESSION Current Visit: Yes Status: Acute (5) Knee pain Current Visit: Yes Status: Acute Qualifiers: Chronicity: acute Laterality: left Qualified Code(s): M25.562 - Pain in left knee (6) Nicotine dependence Current Visit: Yes Status: Acute Qualifiers: Nicotine product type: cigarettes Substance use status: in withdrawal Qualified Code(s): F17.213 - Nicotine dependence, cigarettes, with withdrawal Comment: . (7) Opioid dependence with withdrawal Current Visit: Yes Status: Acute Comment: . (8) PTSD (post-traumatic stress disorder) Current Visit: Yes Status: Acute (9) Substance-induced sleep disorder Current Visit: Yes Status: Acute (10) Alcohol dependence Current Visit: Yes Status: Chronic Comment: . (11) Asthma Current Visit: Yes Status: Chronic Qualifiers: Asthma severity: mild Asthma persistence: intermittent Asthma complication type: with status asthmaticus Qualified Code(s): J45.22 - Mild intermittent asthma with status asthmaticus (12) HTN (hypertension) Current Visit: Yes Status: Chronic Qualifiers: Hypertension type: essential hypertension Qualified Code(s): I10 - Essential (primary) hypertension (13) Insomnia Current Visit: Yes Status: Chronic (14) Opioid dependence Current Visit: Yes Status: Chronic Comment: . (15) Opioid dependence, uncomplicated Current Visit: Yes Status: Chronic (16) Pre-diabetes Current Visit: Yes Status: Chronic (17) Schizoaffective disorder Current Visit: Yes Status: Chronic Comment: .As per self-report. Non compliant with medications. (18) Substance induced mood disorder Current Visit: Yes Status: Suspected Comment: . Cleared for Admission S - Detox or Rehab [facility] Level of Care: Medically Managed Detox Regimen/Protocol: AtKristine jangium Claeared for Rehab Admission: No Screened but not Admitted - Documentation of Visit Screened but not Admitted: No Breathalyzer - Breathalyzer Breathalyzer: 0 Urine Drug Screen - Test Device Lot number: [id number] Expiration date: 07/02/21 - Control Is test valid?: Yes - Results Drug screen NEGATIVE: No Urine drug screen results: THC-Marijuana, HUBERT-Cocaine Inpatient Rehab Admission - Rehab Decision to Admit Inpatient rehab admission?: No
[2020-05-23] MEDS ORDERED: BISMUTH SUBSALICYLATE 262 MG/15 ML BTL PO PRN (11:23)
[2020-05-23] MEDS ORDERED: ONDANSETRON *ODT* 4 MG TABLET SL ONE (11:23)
[2020-05-23] MEDS ORDERED: MAG HYDROX/AL HYDROX/SIMETH 30 ML UNIT-DOSE CUP PO PRN (11:23)
[2020-05-23] MEDS ORDERED: cloNIDine HCL 0.1 MG TABLET PO PRN (11:23)
[2020-05-23] MEDS ORDERED: MENTHOL/PHENOL 1 EACH UD MM PRN (11:23)
[2020-05-23] MEDS ORDERED: IBUPROFEN 400 MG TABLET (FP) PO PRN (11:23)
[2020-05-23] MEDS ORDERED: LORazepam 1 MG TABLET PO PRN (11:23)
[2020-05-23] MEDS ORDERED: ACETAMINOPHEN 325 MG TABLET (FP) PO PRN ×2 (11:23)
[2020-05-23] MEDS ORDERED: MAGNESIUM HYDROX 2400MG/30ML ORAL SUSPENSION 30 ML CUP PO PRN (11:23)
[2020-05-23] MEDS ORDERED: NICOTINE POLACRILEX 2 MG GUM BUC PRN (11:23)
[2020-05-23] MEDS ORDERED: METHADONE HCL 10 MG TABLET (FOR DETOX USE ONLY) PO ONE (11:23)
[2020-05-23] MEDS ORDERED: MAGNESIUM CITRATE 300 ML BOTTLE PO PRN (11:23)
[2020-05-23] MEDS ORDERED: ALBUTEROL SO4 HFA INHALER IH PRN (11:26)
[2020-05-23 11:45] VITALS: BMI 23.0
[2020-05-23] MEDS ORDERED: hydrOXYzine PAMOATE 25 MG CAPSULE (FP) PO PRN (13:05)
[2020-05-23] MEDS: METHOCARBAMOL 500 MG TABLET PO PRN (13:25)
[2020-05-23] MEDS: PRENATAL VITAMINS W/ FOLIC ACID TABLET (FP) PO SCH (13:25)
[2020-05-23] MEDS: LORazepam 2 MG TABLET PO SCH ×3 (13:25→22:14)
[2020-05-23] MEDS: NICOTINE 7 MG/24 HOURS TOPICAL PATCH TD SCH (13:27)
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
[2020-05-23] MEDS ORDERED: hydrOXYzine PAMOATE 25 MG CAPSULE (FP) PO SCH (14:00)
[2020-05-23] MEDS ORDERED: risperiDONE 1 MG TABLET PO ONE (14:02)
[2020-05-23] MEDS ORDERED: BENZTROPINE MESYLATE 1 MG TABLET PO ONE (14:03)
[2020-05-23 14:05] LABS: HEMATOCRIT 40.1 % (32.4-45.2); HEMOGLOBIN 12.9 GM/dL (10.7-15.3); MCHC 32.3 g/dl (32.0-36.0); MEAN CELL VOLUME 86.7 fl (80-96); MEAN PLT VOLUME 7.3 fl (7.5-11.1); PLATELET COUNT 388 K/MM3 (134-434); RBC 4.62 M/mm3 (3.60-5.2); RDW 16.9 % (11.6-15.6); WHITE BLOOD COUNT 11.7 K/mm3 (4.0-10.0)
[2020-05-23 14:18] LABS: ALBUMIN 4.1 g/dl (3.4-5.0); BLOOD UREA NITROGEN 10.2 mg/dL (7-18); CALCIUM 9.2 mg/dL (8.5-10.1); CREATININE 1.2 mg/dL (0.55-1.3); POTASSIUM 3.3 mmol/L (3.5-5.1); TOT PROT 8.7 g/dl (6.4-8.2)
[2020-05-23] MEDS ORDERED: TRIMETHOBENZAMIDE HCL 300 MG CAPSULE PO PRN (15:44)
[2020-05-23] MEDS: BUDESONIDE/FORMETEROL FUMARATE 80/4.5 mcg INHALER IH SCH (22:12)
[2020-05-23] MEDS: THIAMINE HCL 100 MG TABLET (FP) PO SCH (22:14)
[2020-05-23] MEDS: risperiDONE 1 MG TABLET PO SCH (22:14)
[2020-05-23] MEDS: BENZTROPINE MESYLATE 1 MG TABLET PO SCH (22:14)
[2020-05-23] MEDS: MELATONIN 5 MG TABLETS PO SCH (22:15)
[2020-05-24] MEDS: LORazepam 2 MG TABLET PO SCH ×4 (06:19→22:24)
[2020-05-24] MEDS ORDERED: METHADONE HCL 10 MG TABLET (FOR DETOX USE ONLY) ONE (09:33)
[2020-05-24] MEDS ORDERED: METHADONE HCL 5 MG TABLET (FOR DETOX USE ONLY) ONE (09:33)
[2020-05-24] MEDS ORDERED: METHADONE (DETOX) 20 MG, METHADONE (DETOX) 5 MG PO ONE (10:00)
[2020-05-24] MEDS: NICOTINE 7 MG/24 HOURS TOPICAL PATCH TD SCH (10:47)
[2020-05-24] MEDS: BENZTROPINE MESYLATE 1 MG TABLET PO SCH ×2 (10:50→22:23)
[2020-05-24] MEDS: risperiDONE 1 MG TABLET PO SCH ×2 (10:50→22:23)
[2020-05-24] MEDS: BUDESONIDE/FORMETEROL FUMARATE 80/4.5 mcg INHALER IH SCH ×2 (10:50→22:24)
[2020-05-24] MEDS: PRENATAL VITAMINS W/ FOLIC ACID TABLET (FP) PO SCH (10:50)
[2020-05-24] MEDS: METHOCARBAMOL 500 MG TABLET PO PRN (11:28)
[2020-05-24] MEDS ORDERED: HYDROCORTISONE 1% TOPICAL CREAM 30 GM TUBE TP PRN (11:41)
--- NOTE | 2020-05-24 11:47 | PN ---
[facility] CIWA - CIWA Score Nausea/Vomitin-No Nausea/No Vomiting Muscle Tremors: 3 Anxiety: 2 Agitation: 3 Paroxysmal Sweats: 2 Orientation: 0-Oriented Tacttile Disturbances: 0-None Auditory Disturbances: 0-None Visual Disturbances: 0-None Headache: 0-None Present CIWA-Ar Total Score: 10 BHS COWS - Scale Resting Pulse: 0= NE 80 or Below Sweatin= Chills/Flushing Restless Observation: 1= Difficult to Sit Still Pupil Size: 0= Normal to Room Light Bone or Joint Aches: 2= Severe Diffuse Aches Runny Nose/ Eye Tearin= Nasal Congestion GI Upset > 30mins: 0= None Tremor Observation of Outstretched Hands: 1= Tremor [place], Not Seen Yawning Observation: 1= 1-2x During Session Anxiety or Irritability: 2=Irritable/Anxious Goose Flesh Skin: 0=Smooth Skin COWS Score: 9 S Progress Note (SOAP) Subjective: sweats shakes chills body aches interrupted sleep dry skin itchy feet I want ensure please Objective: 05/24/20 11:45 Vital Signs Temperature 97.7 F 05/24/20 06:00 Pulse Rate 64 05/24/20 06:00 Respiratory Rate 20 05/24/20 06:00 Blood Pressure 111/52 L 05/24/20 06:00 O2 Sat by Pulse Oximetry (%) 98 05/24/20 06:00 Laboratory Tests 05/23/20 05/23/20 05/23/20 11:14 11:25 11:25 WBC 11.7 H RBC 4.62 Hgb 12.9 Hct 40.1 D MCV 86.7 MCH 28.0 MCHC 32.3 RDW 16.9 H Plt Count 388 MPV 7.3 L Sodium 135 L Potassium 3.3 L Chloride 101 Carbon Dioxide 22 Anion Gap 12 BUN 10.2 Creatinine 1.2 Est GFR (CKD-EPI)AfAm 65.01 Est GFR (CKD-EPI)NonAf 56.09 POC Glucometer Random Glucose 107 H Calcium 9.2 Total Bilirubin 1.0 AST 14 L ALT 14 Alkaline Phosphatase 68 Total Protein 8.7 H Albumin 4.1 POC Urine HCG, Qual Negative Syphilis Serology HIV Ag/Ab Combo Qual 07/22/20 07/22/20 07/22/20 11:25 11:25 11:47 WBC RBC Hgb Hct MCV MCH MCHC RDW Plt Count MPV Sodium Potassium Chloride Carbon Dioxide Anion Gap BUN Creatinine Est GFR (CKD-EPI)AfAm Est GFR (CKD-EPI)NonAf POC Glucometer 114 Random Glucose Calcium Total Bilirubin AST ALT Alkaline Phosphatase Total Protein Albumin POC Urine HCG, Qual Syphilis Serology Non-reactive HIV Ag/Ab Combo Qual Negative labs noted low potassium; will order kdur aaox3 ambulating no acute distress Assessment: 05/24/20 11:45 withdrawals Plan: continue detox increase fluids aveeno soap ordered tinactin cream ordered hydrocortizone cream ordered vitamin a&d ointment ordered ensure plus BID for lunch and dinner
[2020-05-24] MEDS ORDERED: COLLOIDAL OATMEAL 1 BAR EACH TP ONE (12:00)
[2020-05-24] MEDS: VITAMINS A AND D TOPICAL OINTMENT 60 GM TUBE TP SCH ×2 (14:16→18:00)
[2020-05-24] MEDS: MELATONIN 5 MG TABLETS PO SCH (22:23)
[2020-05-24] MEDS: THIAMINE HCL 100 MG TABLET (FP) PO SCH (22:24)
[2020-05-24] MEDS: TOLNAFTATE 1% CREAM 15 GM TUBE TP SCH (22:24)
[2020-05-25] MEDS: VITAMINS A AND D TOPICAL OINTMENT 60 GM TUBE TP SCH ×2 (00:59→06:25)
[2020-05-25] MEDS: LORazepam 1 MG TABLET PO SCH ×2 (06:25→11:03)
[2020-05-25] MEDS ORDERED: COLLOIDAL OATMEAL 1 BAR EACH TP ONE (10:00)
[2020-05-25] MEDS ORDERED: METHADONE HCL 10 MG TABLET (FOR DETOX USE ONLY) PO ONE (10:00)
[2020-05-25] MEDS: BENZTROPINE MESYLATE 1 MG TABLET PO SCH (11:04)
[2020-05-25] MEDS: risperiDONE 1 MG TABLET PO SCH (11:04)
[2020-05-25] MEDS: PRENATAL VITAMINS W/ FOLIC ACID TABLET (FP) PO SCH (11:05)
[2020-05-25] MEDS: BUDESONIDE/FORMETEROL FUMARATE 80/4.5 mcg INHALER IH SCH (11:07)
[2020-05-25] MEDS: TOLNAFTATE 1% CREAM 15 GM TUBE TP SCH (11:09)
[2020-05-25] MEDS: NICOTINE 7 MG/24 HOURS TOPICAL PATCH TD SCH (11:10)
--- NOTE | 2020-05-25 11:24 | PN ---
S CIWA - CIWA Score Nausea/Vomitin-No Nausea/No Vomiting Muscle Tremors: 2 Anxiety: 2 Agitation: 2 Paroxysmal Sweats: 2 Orientation: 0-Oriented Tacttile Disturbances: 0-None Auditory Disturbances: 0-None Visual Disturbances: 0-None Headache: 0-None Present CIWA-Ar Total Score: 8 BHS COWS - Scale Resting Pulse: 0= [place] 80 or Below Sweatin= Chills/Flushing Restless Observation: 1= Difficult to Sit Still Pupil Size: 0= Normal to Room Light Bone or Joint Aches: 1= Mild Discomfort Runny Nose/ Eye Tearin= None GI Upset > 30mins: 0= None Tremor Observation of Outstretched Hands: 1= Tremor [place], Not Seen Yawning Observation: 1= 1-2x During Session Anxiety or Irritability: 2=Irritable/Anxious Goose Flesh Skin: 0=Smooth Skin COWS Score: 7 S Progress Note (SOAP) Subjective: sweats shakes body aches interrupted sleep anxiety Objective: 05/25/20 11:23 Vital Signs Temperature 97.7 F 05/25/20 05:34 Pulse Rate 70 05/25/20 05:34 Respiratory Rate 16 05/25/20 05:34 Blood Pressure 106/60 05/25/20 05:34 O2 Sat by Pulse Oximetry (%) 100 05/25/20 05:34 Laboratory Tests 05/23/20 05/23/20 05/23/20 11:14 11:25 11:25 WBC 11.7 H RBC 4.62 Hgb 12.9 Hct 40.1 D MCV 86.7 MCH 28.0 MCHC 32.3 RDW 16.9 H Plt Count 388 MPV 7.3 L Sodium 135 L Potassium 3.3 L Chloride 101 Carbon Dioxide 22 Anion Gap 12 BUN 10.2 Creatinine 1.2 Est GFR (CKD-EPI)AfAm 65.01 Est GFR (CKD-EPI)NonAf 56.09 POC Glucometer Random Glucose 107 H Calcium 9.2 Total Bilirubin 1.0 AST 14 L ALT 14 Alkaline Phosphatase 68 Total Protein 8.7 H Albumin 4.1 POC Urine HCG, Qual Negative Syphilis Serology COVID-19 ([facility]) HIV Ag/Ab Combo Qual 05/23/20 05/23/20 05/23/20 11:25 11:25 11:47 WBC RBC Hgb Hct MCV MCH MCHC RDW Plt Count MPV Sodium Potassium Chloride Carbon Dioxide Anion Gap BUN Creatinine Est GFR (CKD-EPI)AfAm Est GFR (CKD-EPI)NonAf POC Glucometer 114 Random Glucose Calcium Total Bilirubin AST ALT Alkaline Phosphatase Total Protein Albumin POC Urine HCG, Qual Syphilis Serology Non-reactive COVID-19 ([facility]) HIV Ag/Ab Combo Qual Negative 05/23/20 05/25/20 13:00 06:23 WBC RBC Hgb Hct MCV MCH MCHC RDW Plt Count MPV Sodium Potassium Chloride Carbon Dioxide Anion Gap BUN Creatinine Est GFR (CKD-EPI)AfAm Est GFR (CKD-EPI)NonAf POC Glucometer 109 Random Glucose Calcium Total Bilirubin AST ALT Alkaline Phosphatase Total Protein Albumin POC Urine HCG, Qual Syphilis Serology COVID-19 ([facility]) Not detected HIV Ag/Ab Combo Qual labs noted elevated WBC noted low potassium noted aaox3 ambulating no acute distress Assessment: 05/25/20 11:26 withdrawals Plan: continue detox increase fluids kdur 20meq x 3 days ordered will repeat labs
[2020-05-25] MEDS ORDERED: POTASSIUM CHLORIDE TABS 20 MEQ TABLET.ER (FP) PO SCH (11:30)
--- NOTE | 2020-05-25 13:27 | PN ---
[facility] Progress Note Note: pt states she wants to leave because she wants to use her own toiletries. Pt was explained several times that we can order and provide the necessary toiletries like aveeno soap and lotion/creams she requested but she states no I want my own. pt explained while in detox that her own toiletries is not permitted but its permitted in rehab. Pt was encouraged to stay to prevent relapse, seizures, DT, OD and or loss, pt chose to sign out AMA.
--- NOTE | 2020-05-25 13:31 | DS ---
[facility] Detox Discharge Summary Admission Date: 05/23/20 - History Present History: Alcohol Dependence, Cannabis Dependence, Opioid Dependence - Physical Exam Results Vital Signs: Vital Signs Temperature 97.2 F L 05/25/20 08:45 Pulse Rate 70 05/25/20 08:45 Respiratory Rate 18 05/25/20 08:45 Blood Pressure 122/68 05/25/20 08:45 O2 Sat by Pulse Oximetry (%) 100 05/25/20 08:45 Pertinent Admission Physical Exam Findings: Vital Signs Temperature 97.2 F L 05/25/20 08:45 Pulse Rate 70 05/25/20 08:45 Respiratory Rate 18 05/25/20 08:45 Blood Pressure 122/68 05/25/20 08:45 O2 Sat by Pulse Oximetry (%) 100 05/25/20 08:45 Laboratory Tests 05/23/20 05/23/20 05/23/20 11:14 11:25 11:25 WBC 11.7 H RBC 4.62 Hgb 12.9 Hct 40.1 D MCV 86.7 MCH 28.0 MCHC 32.3 RDW 16.9 H Plt Count 388 MPV 7.3 L Sodium 135 L Potassium 3.3 L Chloride 101 Carbon Dioxide 22 Anion Gap 12 BUN 10.2 Creatinine 1.2 Est GFR (CKD-EPI)AfAm 65.01 Est GFR (CKD-EPI)NonAf 56.09 POC Glucometer Random Glucose 107 H Calcium 9.2 Total Bilirubin 1.0 AST 14 L ALT 14 Alkaline Phosphatase 68 Total Protein 8.7 H Albumin 4.1 POC Urine HCG, Qual Negative Syphilis Serology COVID-19 ([facility]) HIV Ag/Ab Combo Qual 05/23/20 05/23/20 05/23/20 11:25 11:25 11:47 WBC RBC Hgb Hct MCV MCH MCHC RDW Plt Count MPV Sodium Potassium Chloride Carbon Dioxide Anion Gap BUN Creatinine Est GFR (CKD-EPI)AfAm Est GFR (CKD-EPI)NonAf POC Glucometer 114 Random Glucose Calcium Total Bilirubin AST ALT Alkaline Phosphatase Total Protein Albumin POC Urine HCG, Qual Syphilis Serology Non-reactive COVID-19 ([facility]) HIV Ag/Ab Combo Qual Negative 05/23/20 05/25/20 13:00 06:23 WBC RBC Hgb Hct MCV MCH MCHC RDW Plt Count MPV Sodium Potassium Chloride Carbon Dioxide Anion Gap BUN Creatinine Est GFR (CKD-EPI)AfAm Est GFR (CKD-EPI)NonAf POC Glucometer 109 Random Glucose Calcium Total Bilirubin AST ALT Alkaline Phosphatase Total Protein Albumin POC Urine HCG, Qual Syphilis Serology COVID-19 ([facility]) Not detected HIV Ag/Ab Combo Qual aaox3 ambulating no acute distress lungs CTA pt signed out AMA - Treatment Hospital Course: Rehab Referral Accepted - Medication Discharge Medications: Ambulatory Orders Naltrexone HCl 50 mg PO DAILY 01/22/18 Albuterol Sulfate Inhaler - [Ventolin HFA Inhaler -] 2 puff IH Q4H PRN #1 inhaler 01/26/18 Budesonide/Formeterol Fumarate [SYMBICORT 80/4.5mcg -] 2 puff IH BID #1 inhaler 01/26/18 Benztropine Mesylate [Cogentin -] 0.5 mg PO BID 12/13/19 Citalopram Hydrobromide [Celexa -] 20 mg PO DAILY #30 tablet 12/26/19 Risperidone [Risperdal -] 1 mg PO BID #60 tablet 12/26/19 traZODone HCL [Desyrel -] 50 mg PO HS #30 tablet 12/26/19 Olanzapine [Zyprexa] 5 mg PO DAILY 05/23/20 Temazepam [Restoril] 15 mg PO HS 05/23/20 - Diagnosis (1) Alcohol dependence with withdrawal, uncomplicated Current Visit: Yes Status: Chronic (2) Cannabis dependence, uncomplicated Current Visit: Yes Status: Chronic (3) DEPRESSION Current Visit: Yes Status: Acute (4) Knee pain Current Visit: Yes Status: Chronic Qualifiers: Chronicity: acute Laterality: left Qualified Code(s): M25.562 - Pain in left knee (5) Opioid dependence with withdrawal Current Visit: Yes Status: Chronic (6) Substance-induced anxiety disorder Current Visit: Yes Status: Acute (7) Substance-induced sleep disorder Current Visit: Yes Status: Acute (8) Asthma Current Visit: Yes Status: Chronic Qualifiers: Asthma severity: mild Asthma persistence: intermittent Asthma complication type: with status asthmaticus Qualified Code(s): J45.22 - Mild intermittent asthma with status asthmaticus (9) HTN (hypertension) Current Visit: Yes Status: Chronic Qualifiers: Hypertension type: essential hypertension Qualified Code(s): I10 - Essential (primary) hypertension (10) Insomnia Current Visit: Yes Status: Chronic (11) Nicotine dependence Current Visit: Yes Status: Chronic Qualifiers: Nicotine product type: cigarettes Substance use status: uncomplicated Qualified Code(s): F17.210 - Nicotine dependence, cigarettes, uncomplicated (12) PTSD (post-traumatic stress disorder) Current Visit: Yes Status: Chronic (13) Schizoaffective disorder Current Visit: Yes Status: Chronic (14) Substance induced mood disorder Current Visit: Yes Status: Suspected (15) Anxiety disorder Current Visit: No Status: Active (16) Non-compliance Current Visit: No Status: Acute - AMA Did Patient Leave Against Medical Advice: Yes
[2020-05-25 14:28] VITALS: BP 131/71; PULSE 76; TEMP 97.1
[2020-05-26] MEDS ORDERED: LORazepam 0.5 MG TABLET PO PRN
[2020-05-26] MEDS ORDERED: LORazepam 0.5 MG TABLET PO SCH (05:00)
[2020-05-26] MEDS ORDERED: METHADONE (DETOX) 10 MG, METHADONE (DETOX) 5 MG PO ONE (10:00)
[2020-05-27] MEDS ORDERED: LORazepam 0.5 MG TABLET PO ONE (05:00)
[2020-05-27] MEDS ORDERED: METHADONE HCL 10 MG TABLET (FOR DETOX USE ONLY) PO ONE (10:00)
[2020-05-28] MEDS ORDERED: METHADONE HCL 5 MG TABLET (FOR DETOX USE ONLY) PO ONE (06:00)
== END 2020-05-25 13:40 | disposition left against medical advice (07) | DRG 894 ==
LOC: YASAS 09:57 → UNDOADMIN 12:08 → Y6N 12:08 → UNDOADMIN 12:22 → Y3N 12:22 → Y6N 12:28
PROVIDERS: ADMIT Allergy & Immunology; ATTEND Allergy & Immunology
PROC: HZ2ZZZZ Detoxification Services for Substance Abuse Treatment (ICD-10-PCS; principal; 2020-05-23)
DX: F10.230 Alcohol dependence with withdrawal, uncomplicated (principal); F14.20 Cocaine dependence, uncomplicated; F19.280 Other psychoactive substance dependence with psychoactive substance-induced anxiety disorder; F19.282 Other psychoactive substance dependence with psychoactive substance-induced sleep disorder; J45.22 Mild intermittent asthma with status asthmaticus; F11.23 Opioid dependence with withdrawal; F12.20 Cannabis dependence, uncomplicated; F17.210 Nicotine dependence, cigarettes, uncomplicated; F19.24 Other psychoactive substance dependence with psychoactive substance-induced mood disorder; F25.9 Schizoaffective disorder, unspecified; F41.9 Anxiety disorder, unspecified; F43.10 Post-traumatic stress disorder, unspecified; I10 Essential (primary) hypertension; M25.562 Pain in left knee; R73.03 Prediabetes; Z62.810 Personal history of physical and sexual abuse in childhood; Z87.42 Personal history of other diseases of the female genital tract; Z86.2 Personal history of diseases of the blood and blood-forming organs and certain disorders involving the immune mechanism; Z86.19 Personal history of other infectious and parasitic diseases; Z91.410 Personal history of adult physical and sexual abuse; Z91.5 Personal history of self-harm; Z88.8 Allergy status to other drugs, medicaments and biological substances; Z91.018 Allergy to other foods; Z59.0 Homelessness
CPT/HCPCS: 36415; 80053; 81025; 82962; 85027; 86780; 87389; J2794; Q0162; U0003

== ENCOUNTER 2020-09-20 08:51 | Inpatient (IN) | payer OTHER ==
[2020-09-20 10:00] VITALS: BMI 27.8
[2020-09-20] MEDS ORDERED: MAGNESIUM CITRATE 300 ML BOTTLE PO PRN (10:33)
[2020-09-20] MEDS ORDERED: MAG HYDROX/AL HYDROX/SIMETH 30 ML UNIT-DOSE CUP PO PRN (10:33)
[2020-09-20] MEDS ORDERED: cloNIDine HCL 0.1 MG TABLET PO PRN (10:33)
[2020-09-20] MEDS ORDERED: MAGNESIUM HYDROX 2400MG/30ML ORAL SUSPENSION 30 ML CUP PO PRN (10:33)
[2020-09-20] MEDS ORDERED: MENTHOL/PHENOL 1 EACH UD MM PRN (10:33)
[2020-09-20] MEDS ORDERED: BISMUTH SUBSALICYLATE 524 MG/30 ML UD PO PRN (10:33)
[2020-09-20] MEDS ORDERED: ACETAMINOPHEN 325 MG TABLET (FP) PO PRN ×2 (10:33)
[2020-09-20] MEDS ORDERED: ALBUTEROL SO4 HFA INHALER IH PRN (10:33)
[2020-09-20] MEDS ORDERED: ONDANSETRON *ODT* 4 MG TABLET SL PRN (10:33)
[2020-09-20] MEDS ORDERED: METHADONE HCL 10 MG TABLET (FOR DETOX USE ONLY) PO ONE (10:45)
[2020-09-20] MEDS: NICOTINE 21 MG/24 HOURS TOPICAL PATCH TD SCH (11:40)
[2020-09-20] MEDS: NAPROXEN 500 MG TABLET PO SCH ×2 (11:40→22:24)
[2020-09-20] MEDS: BUDESONIDE/FORMETEROL FUMARATE 80/4.5 mcg INHALER IH SCH ×2 (12:36→22:22)
[2020-09-20] MEDS: hydrOXYzine PAMOATE 25 MG CAPSULE (FP) PO SCH ×3 (13:16→22:24)
[2020-09-20 14:53] LABS: HEMATOCRIT 35.9 % (32.4-45.2); HEMOGLOBIN 11.4 GM/dL (10.7-15.3); MCH 28.4 pg (25.7-33.7); MCHC 31.8 g/dl (32.0-36.0); MEAN CELL VOLUME 89.2 fl (80-96); MEAN PLT VOLUME 6.7 fl (7.5-11.1); PLATELET COUNT 380 K/MM3 (134-434); RBC 4.03 M/mm3 (3.60-5.2); RDW 17.7 % (11.6-15.6); WHITE BLOOD COUNT 5.6 K/mm3 (4.0-10.0)
[2020-09-20 15:20] LABS: POTASSIUM 4.2 mmol/L (3.5-5.1)
[2020-09-20 15:22] LABS: CALCIUM 8.7 mg/dL (8.5-10.1)
[2020-09-20 15:23] LABS: ALBUMIN 3.6 g/dl (3.4-5.0); BLOOD UREA NITROGEN 19.4 mg/dL (7-18)
[2020-09-20 15:26] LABS: CREATININE 0.9 mg/dL (0.55-1.3)
[2020-09-20 15:27] LABS: BILIRUBIN,TOTAL 0.2 mg/dL (0.2-1); TOT PROT 7.3 g/dl (6.4-8.2)
[2020-09-20 16:14] LABS: HIV INTERPRETATION NEGATIVE (NEGATIVE)
[2020-09-20] MEDS: METHOCARBAMOL 500 MG TABLET PO PRN (17:07)
[2020-09-20] MEDS: THIAMINE HCL 100 MG TABLET (FP) PO SCH (22:24)
[2020-09-20] MEDS: MELATONIN 5 MG TABLETS PO SCH (22:24)
[2020-09-21] MEDS: hydrOXYzine PAMOATE 25 MG CAPSULE (FP) PO SCH ×5 (05:04→22:07)
[2020-09-21] MEDS: METHOCARBAMOL 500 MG TABLET PO PRN ×2 (05:04→17:22)
[2020-09-21] MEDS ORDERED: METHADONE HCL 5 MG TABLET (FOR DETOX USE ONLY) ONE (08:50)
[2020-09-21] MEDS ORDERED: METHADONE HCL 10 MG TABLET (FOR DETOX USE ONLY) ONE (08:50)
[2020-09-21] MEDS ORDERED: METHADONE (DETOX) 20 MG, METHADONE (DETOX) 5 MG PO ONE (10:00)
[2020-09-21] MEDS: PRENATAL VITAMINS W/ FOLIC ACID TABLET (FP) PO SCH (10:31)
[2020-09-21] MEDS: NAPROXEN 500 MG TABLET PO SCH ×2 (10:32→22:07)
[2020-09-21] MEDS: NICOTINE 21 MG/24 HOURS TOPICAL PATCH TD SCH (10:33)
[2020-09-21] MEDS: BUDESONIDE/FORMETEROL FUMARATE 80/4.5 mcg INHALER IH SCH ×2 (10:33→22:08)
[2020-09-21] MEDS: OLANZapine 10 MG TABLET PO SCH (22:07)
[2020-09-21] MEDS: THIAMINE HCL 100 MG TABLET (FP) PO SCH (22:07)
[2020-09-21] MEDS: MELATONIN 5 MG TABLETS PO SCH (22:08)
[2020-09-22] MEDS: hydrOXYzine PAMOATE 25 MG CAPSULE (FP) PO SCH ×6 (07:13→21:00)
[2020-09-22] MEDS ORDERED: OLANZapine 10 MG TABLET PO SCH (10:00)
[2020-09-22] MEDS ORDERED: METHADONE HCL 10 MG TABLET (FOR DETOX USE ONLY) PO ONE (10:00)
[2020-09-22] MEDS: NAPROXEN 500 MG TABLET PO SCH ×2 (10:16→21:00)
[2020-09-22] MEDS: PRENATAL VITAMINS W/ FOLIC ACID TABLET (FP) PO SCH (10:16)
[2020-09-22] MEDS: BUDESONIDE/FORMETEROL FUMARATE 80/4.5 mcg INHALER IH SCH ×2 (10:17→21:01)
[2020-09-22] MEDS: NICOTINE 21 MG/24 HOURS TOPICAL PATCH TD SCH (10:17)
[2020-09-22] MEDS ORDERED: MASKS NR ONE (11:38)
[2020-09-22] MEDS ORDERED: COLLOIDAL OATMEAL 1 BAR EACH TP PRN (12:19)
[2020-09-22] MEDS: MELATONIN 5 MG TABLETS PO SCH (21:00)
[2020-09-22] MEDS: THIAMINE HCL 100 MG TABLET (FP) PO SCH (21:01)
[2020-09-22] MEDS: OLANZapine 10 MG TABLET PO SCH (21:01)
[2020-09-23] MEDS: hydrOXYzine PAMOATE 25 MG CAPSULE (FP) PO SCH ×5 (06:35→21:13)
[2020-09-23] MEDS ORDERED: METHADONE HCL 10 MG TABLET (FOR DETOX USE ONLY) ONE (09:18)
[2020-09-23] MEDS ORDERED: METHADONE HCL 5 MG TABLET (FOR DETOX USE ONLY) ONE (09:18)
[2020-09-23] MEDS ORDERED: METHADONE (DETOX) 10 MG, METHADONE (DETOX) 5 MG PO ONE (10:00)
[2020-09-23] MEDS: PRENATAL VITAMINS W/ FOLIC ACID TABLET (FP) PO SCH (10:30)
[2020-09-23] MEDS: BUDESONIDE/FORMETEROL FUMARATE 80/4.5 mcg INHALER IH SCH ×2 (10:30→21:13)
[2020-09-23] MEDS: NICOTINE 21 MG/24 HOURS TOPICAL PATCH TD SCH (10:31)
[2020-09-23] MEDS: NAPROXEN 500 MG TABLET PO SCH ×2 (10:31→21:13)
[2020-09-23] MEDS: METHOCARBAMOL 500 MG TABLET PO PRN (17:13)
[2020-09-23] MEDS: MELATONIN 5 MG TABLETS PO SCH (21:13)
[2020-09-23] MEDS: OLANZapine 10 MG TABLET PO SCH (21:13)
[2020-09-23] MEDS: THIAMINE HCL 100 MG TABLET (FP) PO SCH (21:13)
[2020-09-24] MEDS: hydrOXYzine PAMOATE 25 MG CAPSULE (FP) PO SCH ×5 (05:53→22:11)
[2020-09-24] MEDS ORDERED: METHADONE HCL 10 MG TABLET (FOR DETOX USE ONLY) PO ONE (10:00)
[2020-09-24] MEDS: NICOTINE 21 MG/24 HOURS TOPICAL PATCH TD SCH (10:32)
[2020-09-24] MEDS: NAPROXEN 500 MG TABLET PO SCH ×2 (10:32→22:11)
[2020-09-24] MEDS: BUDESONIDE/FORMETEROL FUMARATE 80/4.5 mcg INHALER IH SCH ×2 (10:32→22:12)
[2020-09-24] MEDS: PRENATAL VITAMINS W/ FOLIC ACID TABLET (FP) PO SCH (10:32)
[2020-09-24] MEDS: METHOCARBAMOL 500 MG TABLET PO PRN ×2 (10:33→17:27)
[2020-09-24] MEDS: LITHIUM CARBONATE 300 MG CAPSULE (FP) PO SCH ×2 (11:10→22:12)
[2020-09-24] MEDS: NICOTINE POLACRILEX 2 MG GUM BUC PRN (13:45)
[2020-09-24] MEDS ORDERED: OLANZapine 7.5 MG TABLET PO SCH (22:00)
[2020-09-24] MEDS: MELATONIN 5 MG TABLETS PO SCH (22:12)
[2020-09-24] MEDS: THIAMINE HCL 100 MG TABLET (FP) PO SCH (22:13)
[2020-09-25] MEDS ORDERED: METHADONE HCL 5 MG TABLET (FOR DETOX USE ONLY) PO ONE (06:00)
[2020-09-25] MEDS: hydrOXYzine PAMOATE 25 MG CAPSULE (FP) PO SCH ×2 (06:01→09:41)
[2020-09-25 09:06] VITALS: BP 109/68; PULSE 67; TEMP 96.1
[2020-09-25] MEDS: BUDESONIDE/FORMETEROL FUMARATE 80/4.5 mcg INHALER IH SCH (09:40)
[2020-09-25] MEDS: PRENATAL VITAMINS W/ FOLIC ACID TABLET (FP) PO SCH (09:41)
[2020-09-25] MEDS: NICOTINE 21 MG/24 HOURS TOPICAL PATCH TD SCH (09:41)
[2020-09-25] MEDS: NAPROXEN 500 MG TABLET PO SCH (09:41)
[2020-09-25] MEDS: LITHIUM CARBONATE 300 MG CAPSULE (FP) PO SCH (09:41)
[2020-09-25] MEDS: NICOTINE POLACRILEX 2 MG GUM BUC PRN (09:42)
== END 2020-09-25 10:50 | disposition other institution (70) | DRG 897 ==
LOC: YASAS 08:51 → Y3N 11:04
PROVIDERS: ADMIT Allergy & Immunology; ATTEND Allergy & Immunology
PROC: HZ2ZZZZ Detoxification Services for Substance Abuse Treatment (ICD-10-PCS; principal; 2020-09-20)
DX: F11.23 Opioid dependence with withdrawal (principal); F14.20 Cocaine dependence, uncomplicated; F15.20 Other stimulant dependence, uncomplicated; F12.20 Cannabis dependence, uncomplicated; F17.210 Nicotine dependence, cigarettes, uncomplicated; F25.9 Schizoaffective disorder, unspecified; F31.9 Bipolar disorder, unspecified; F43.10 Post-traumatic stress disorder, unspecified; I10 Essential (primary) hypertension; J45.20 Mild intermittent asthma, uncomplicated; J44.9 Chronic obstructive pulmonary disease, unspecified; D25.9 Leiomyoma of uterus, unspecified; M54.5 Low back pain; G89.29 Other chronic pain; R73.03 Prediabetes; Z62.810 Personal history of physical and sexual abuse in childhood; Z86.2 Personal history of diseases of the blood and blood-forming organs and certain disorders involving the immune mechanism; Z86.69 Personal history of other diseases of the nervous system and sense organs; Z86.79 Personal history of other diseases of the circulatory system; Z99.89 Dependence on other enabling machines and devices; Z88.8 Allergy status to other drugs, medicaments and biological substances; Z91.013 Allergy to seafood
CPT/HCPCS: 36415; 80053; 80178; 85027; 86780; 87389; 93005; 93010; C9803; U0003

== ENCOUNTER 2020-09-25 10:55 | Inpatient (IN) | payer OTHER ==
[~2020-09-25 10:55] MED LIST changes: +COLLOIDAL OATMEAL 1 BAR EACH TP PRN; -IBUPROFEN 400 MG TABLET (FP) PO PRN; -LOPERAMIDE HCL 2 MG CAPSULE PO PRN; -MAG HYDROX/AL HYDROX/SIMETH 30 ML UNIT-DOSE CUP PO PRN; -MAGNESIUM CITRATE 300 ML BOTTLE PO PRN; -MAGNESIUM HYDROX 2400MG/30ML ORAL SUSPENSION 30 ML CUP PO PRN; -MENTHOL/PHENOL 1 EACH UD MM PRN; -NICOTINE POLACRILEX 4 MG GUM BUC PRN; -P-EPHED 60MG/TRIPROLIDI 2.5MG TABLET PO PRN; -guaiFENesin 200 MG/10 ML 10 ML UNIT-DOSE CUPS PO PRN
[2020-09-25] MEDS ORDERED: MAGNESIUM HYDROX 2400MG/30ML ORAL SUSPENSION 30 ML CUP PO PRN (12:00)
[2020-09-25] MEDS ORDERED: guaiFENesin 200 MG/10 ML 10 ML UNIT-DOSE CUPS PO PRN (12:00)
[2020-09-25] MEDS ORDERED: LOPERAMIDE HCL 2 MG CAPSULE PO PRN (12:00)
[2020-09-25] MEDS ORDERED: ALBUTEROL SO4 HFA INHALER IH PRN (12:00)
[2020-09-25] MEDS ORDERED: MAG HYDROX/AL HYDROX/SIMETH 30 ML UNIT-DOSE CUP PO PRN (12:00)
[2020-09-25] MEDS ORDERED: P-EPHED 60MG/TRIPROLIDI 2.5MG TABLET PO PRN (12:00)
[2020-09-25] MEDS ORDERED: MAGNESIUM CITRATE 300 ML BOTTLE PO PRN (12:00)
[2020-09-25] MEDS: ACETAMINOPHEN 325 MG TABLET (FP) PO PRN (14:30)
[2020-09-25] MEDS: NICOTINE POLACRILEX 4 MG GUM BUC PRN (17:56)
[2020-09-25] MEDS: MELATONIN 5 MG TABLETS PO SCH (21:29)
[2020-09-25] MEDS: THIAMINE HCL 100 MG TABLET (FP) PO SCH (21:29)
[2020-09-25] MEDS: LITHIUM CARBONATE 300 MG CAPSULE (FP) PO SCH (21:30)
[2020-09-25] MEDS: OLANZapine 7.5 MG TABLET PO SCH (21:30)
[2020-09-25] MEDS: NAPROXEN 500 MG TABLET PO SCH (21:31)
[2020-09-25] MEDS: BUDESONIDE/FORMETEROL FUMARATE 80/4.5 mcg INHALER IH SCH (21:31)
[2020-09-25] MEDS ORDERED: BUDESONIDE/FORMETEROL FUMARATE 80/4.5 mcg INHALER IH SCH (22:00)
[2020-09-26] MEDS: ACETAMINOPHEN 325 MG TABLET (FP) PO PRN (06:06)
[2020-09-26] MEDS ORDERED: PT OWN MED DRAWER 7, Y5N ONE ×2 (08:50→19:10)
[2020-09-26] MEDS: LITHIUM CARBONATE 300 MG CAPSULE (FP) PO SCH ×2 (10:49→21:33)
[2020-09-26] MEDS: PRENATAL VITAMINS W/ FOLIC ACID TABLET (FP) PO SCH (10:49)
[2020-09-26] MEDS: NAPROXEN 500 MG TABLET PO SCH ×2 (10:49→21:31)
[2020-09-26] MEDS: NICOTINE 21 MG/24 HOURS TOPICAL PATCH TD SCH (10:51)
[2020-09-26] MEDS: BUDESONIDE/FORMETEROL FUMARATE 80/4.5 mcg INHALER IH SCH ×2 (10:52→21:31)
[2020-09-26] MEDS: LIDOCAINE 5% TOPICAL PATCH TP SCH (15:23)
[2020-09-26] MEDS: METHOCARBAMOL 500 MG TABLET PO SCH ×2 (17:37→21:31)
[2020-09-26] MEDS: OLANZapine 7.5 MG TABLET PO SCH (21:31)
[2020-09-26] MEDS: LIDOCAINE PATCH REMOVAL MC SCH (21:32)
[2020-09-26] MEDS: THIAMINE HCL 100 MG TABLET (FP) PO SCH (21:33)
[2020-09-26] MEDS: MELATONIN 5 MG TABLETS PO SCH (21:33)
[2020-09-27] MEDS ORDERED: PT OWN MED DRAWER 7, Y5N ONE ×2 (09:01→18:22)
[2020-09-27] MEDS: LIDOCAINE 5% TOPICAL PATCH TP SCH (10:54)
[2020-09-27] MEDS: NICOTINE 21 MG/24 HOURS TOPICAL PATCH TD SCH (10:55)
[2020-09-27] MEDS: METHOCARBAMOL 500 MG TABLET PO SCH ×4 (10:55→21:28)
[2020-09-27] MEDS: NAPROXEN 500 MG TABLET PO SCH ×2 (10:55→21:28)
[2020-09-27] MEDS: LITHIUM CARBONATE 300 MG CAPSULE (FP) PO SCH ×2 (10:55→21:28)
[2020-09-27] MEDS: BUDESONIDE/FORMETEROL FUMARATE 80/4.5 mcg INHALER IH SCH ×2 (10:56→21:28)
[2020-09-27] MEDS: PRENATAL VITAMINS W/ FOLIC ACID TABLET (FP) PO SCH (10:56)
[2020-09-27] MEDS: NICOTINE POLACRILEX 4 MG GUM BUC PRN (18:32)
[2020-09-27] MEDS: MELATONIN 5 MG TABLETS PO SCH (21:28)
[2020-09-27] MEDS: OLANZapine 7.5 MG TABLET PO SCH (21:28)
[2020-09-27] MEDS: THIAMINE HCL 100 MG TABLET (FP) PO SCH (21:28)
[2020-09-27] MEDS: LIDOCAINE PATCH REMOVAL MC SCH (21:29)
[2020-09-28] MEDS: NAPROXEN 500 MG TABLET PO SCH ×2 (10:47→21:25)
[2020-09-28] MEDS: LIDOCAINE 5% TOPICAL PATCH TP SCH (10:47)
[2020-09-28] MEDS: NICOTINE 21 MG/24 HOURS TOPICAL PATCH TD SCH (10:47)
[2020-09-28] MEDS: PRENATAL VITAMINS W/ FOLIC ACID TABLET (FP) PO SCH (10:47)
[2020-09-28] MEDS: METHOCARBAMOL 500 MG TABLET PO SCH ×4 (10:47→21:25)
[2020-09-28] MEDS: LITHIUM CARBONATE 300 MG CAPSULE (FP) PO SCH ×2 (10:49→21:26)
[2020-09-28] MEDS: BUDESONIDE/FORMETEROL FUMARATE 80/4.5 mcg INHALER IH SCH ×2 (10:50→22:03)
[2020-09-28 16:32] LABS: POTASSIUM 4.7 mmol/L (3.5-5.1)
[2020-09-28 16:33] LABS: BLOOD UREA NITROGEN 13.9 mg/dL (7-18)
[2020-09-28 16:37] LABS: CREATININE 0.9 mg/dL (0.55-1.3)
[2020-09-28] MEDS: ACETAMINOPHEN 325 MG TABLET (FP) PO PRN (18:03)
[2020-09-28] MEDS ORDERED: PT OWN MED DRAWER 7, Y5N ONE (19:31)
[2020-09-28] MEDS ORDERED: OLANZapine 5 MG TABLET ONE (21:00)
[2020-09-28] MEDS ORDERED: OLANZapine 10 MG TABLET ONE (21:00)
[2020-09-28] MEDS: MELATONIN 5 MG TABLETS PO SCH (21:25)
[2020-09-28] MEDS: THIAMINE HCL 100 MG TABLET (FP) PO SCH (21:26)
[2020-09-28] MEDS: LIDOCAINE PATCH REMOVAL MC SCH (21:28)
[2020-09-28] MEDS: OLANZAPINE 10 MG, OLANZAPINE 5 MG PO SCH (22:04)
[2020-09-28] MEDS: OLANZapine 7.5 MG TABLET PO SCH (22:05)
[2020-09-29] MEDS: NICOTINE 21 MG/24 HOURS TOPICAL PATCH TD SCH (10:10)
[2020-09-29] MEDS: NAPROXEN 500 MG TABLET PO SCH ×2 (10:10→21:28)
[2020-09-29] MEDS: LITHIUM CARBONATE 300 MG CAPSULE (FP) PO SCH ×2 (10:10→21:30)
[2020-09-29] MEDS: LIDOCAINE 5% TOPICAL PATCH TP SCH (10:10)
[2020-09-29] MEDS: PRENATAL VITAMINS W/ FOLIC ACID TABLET (FP) PO SCH (10:10)
[2020-09-29] MEDS: BUDESONIDE/FORMETEROL FUMARATE 80/4.5 mcg INHALER IH SCH ×2 (10:10→21:31)
[2020-09-29] MEDS: METHOCARBAMOL 500 MG TABLET PO SCH ×4 (10:10→21:28)
[2020-09-29] MEDS: CLINDAMYCIN HCL 150 MG CAPSULE (FP) PO SCH ×2 (18:02→23:53)
[2020-09-29] MEDS ORDERED: OLANZapine 10 MG TABLET ONE (19:09)
[2020-09-29] MEDS ORDERED: OLANZapine 5 MG TABLET ONE (19:09)
[2020-09-29] MEDS: THIAMINE HCL 100 MG TABLET (FP) PO SCH (21:28)
[2020-09-29] MEDS: MELATONIN 5 MG TABLETS PO SCH (21:28)
[2020-09-29] MEDS: OLANZAPINE 10 MG, OLANZAPINE 5 MG PO SCH (21:28)
[2020-09-29] MEDS ORDERED: PT OWN MED DRAWER 7, Y5N ONE (21:29)
[2020-09-29] MEDS: OLANZapine 7.5 MG TABLET PO SCH (21:30)
[2020-09-29] MEDS: LIDOCAINE PATCH REMOVAL MC SCH (21:31)
[2020-09-30] MEDS: CLINDAMYCIN HCL 150 MG CAPSULE (FP) PO SCH ×4 (06:18→23:18)
[2020-09-30] MEDS: LITHIUM CARBONATE 300 MG CAPSULE (FP) PO SCH ×2 (09:24→21:18)
[2020-09-30] MEDS: LIDOCAINE 5% TOPICAL PATCH TP SCH (09:24)
[2020-09-30] MEDS: NICOTINE 21 MG/24 HOURS TOPICAL PATCH TD SCH (09:25)
[2020-09-30] MEDS: NAPROXEN 500 MG TABLET PO SCH ×2 (09:25→21:18)
[2020-09-30] MEDS: PRENATAL VITAMINS W/ FOLIC ACID TABLET (FP) PO SCH (09:26)
[2020-09-30] MEDS: METHOCARBAMOL 500 MG TABLET PO SCH ×4 (09:26→21:18)
[2020-09-30] MEDS: BUDESONIDE/FORMETEROL FUMARATE 80/4.5 mcg INHALER IH SCH ×2 (09:26→22:07)
[2020-09-30] MEDS ORDERED: OLANZapine 10 MG TABLET ONE (18:34)
[2020-09-30] MEDS ORDERED: OLANZapine 5 MG TABLET ONE (18:35)
[2020-09-30] MEDS: NICOTINE POLACRILEX 4 MG GUM BUC PRN (19:58)
[2020-09-30] MEDS: THIAMINE HCL 100 MG TABLET (FP) PO SCH (21:18)
[2020-09-30] MEDS: OLANZAPINE 10 MG, OLANZAPINE 5 MG PO SCH (21:18)
[2020-09-30] MEDS: MELATONIN 5 MG TABLETS PO SCH (21:18)
[2020-09-30] MEDS: OLANZapine 7.5 MG TABLET PO SCH (21:20)
[2020-09-30] MEDS: LIDOCAINE PATCH REMOVAL MC SCH (22:15)
[2020-10-01] MEDS: CLINDAMYCIN HCL 150 MG CAPSULE (FP) PO SCH (06:01)
[2020-10-01 06:51] VITALS: BP 121/80; PULSE 68; TEMP 97.5
[2020-10-01] MEDS ORDERED: PT OWN MED DRAWER 7, Y5N ONE (09:04)
[2020-10-01] MEDS: LIDOCAINE 5% TOPICAL PATCH TP SCH (09:29)
[2020-10-01] MEDS: METHOCARBAMOL 500 MG TABLET PO SCH (09:29)
[2020-10-01] MEDS: PRENATAL VITAMINS W/ FOLIC ACID TABLET (FP) PO SCH (09:29)
[2020-10-01] MEDS: LITHIUM CARBONATE 300 MG CAPSULE (FP) PO SCH (09:29)
[2020-10-01] MEDS: NICOTINE 21 MG/24 HOURS TOPICAL PATCH TD SCH (09:29)
[2020-10-01] MEDS: NAPROXEN 500 MG TABLET PO SCH (09:29)
[2020-10-01] MEDS: BUDESONIDE/FORMETEROL FUMARATE 80/4.5 mcg INHALER IH SCH (09:30)
== END 2020-10-01 09:35 | disposition home or self-care (01) | DRG 895 ==
LOC: YASAS 10:55 → Y3W 10:57
PROVIDERS: ADMIT Allergy & Immunology; ATTEND Allergy & Immunology
PROC: HZ42ZZZ Group Counseling for Substance Abuse Treatment, Cognitive-Behavioral (ICD-10-PCS; principal; 2020-09-25)
DX: F11.20 Opioid dependence, uncomplicated (principal); F14.20 Cocaine dependence, uncomplicated; F12.20 Cannabis dependence, uncomplicated; F17.210 Nicotine dependence, cigarettes, uncomplicated; F25.9 Schizoaffective disorder, unspecified; F31.9 Bipolar disorder, unspecified; I10 Essential (primary) hypertension; J44.9 Chronic obstructive pulmonary disease, unspecified; H60.02 Abscess of left external ear; Z99.89 Dependence on other enabling machines and devices
CPT/HCPCS: 36415; 80048; 80178

== ENCOUNTER 2020-09-29 11:17 | Emergency (ER) | payer OTHER ==
[2020-09-29 11:45] VITALS: BMI 27.6
[2020-09-29 12:22] LABS: BASO % 0.6 % (0-2.0); HEMATOCRIT 38.4 % (32.4-45.2); HEMOGLOBIN 12.7 GM/dL (10.7-15.3); LYMPH % 24.6 % (8-40); MCH 29.2 pg (25.7-33.7); MCHC 33.2 g/dl (32.0-36.0); MEAN CELL VOLUME 87.9 fl (80-96); MEAN PLT VOLUME 6.2 fl (7.5-11.1); NEUT % 66.8 % (42.8-82.8); PLATELET COUNT 285 K/MM3 (134-434); RBC 4.36 M/mm3 (3.60-5.2); RDW 16.8 % (11.6-15.6); WHITE BLOOD COUNT 10.2 K/mm3 (4.0-10.0)
[2020-09-29 12:39] LABS: POTASSIUM 4.8 mmol/L (3.5-5.1)
[2020-09-29 12:42] LABS: ALBUMIN 3.7 g/dl (3.4-5.0); BLOOD UREA NITROGEN 16.9 mg/dL (7-18); CALCIUM 8.8 mg/dL (8.5-10.1)
[2020-09-29 12:45] LABS: CREATININE 0.8 mg/dL (0.55-1.3)
[2020-09-29 12:47] LABS: BILIRUBIN,TOTAL 0.4 mg/dL (0.2-1); TOT PROT 7.4 g/dl (6.4-8.2)
[2020-09-29] MEDS ORDERED: CLINDAMYCIN HCL 150 MG CAPSULE (FP) PO ONE (13:32)
[2020-09-29] MEDS ORDERED: CLINDAMYCIN HCL 150 MG CAPSULE (FP) ONE (14:10)
[2020-09-29 15:17] VITALS: BP 108/73; PULSE 78; TEMP 97.8
== END 2020-09-29 15:17 | disposition home or self-care (01) ==
LOC: JER 11:17
DX: H60.02 Abscess of left external ear (principal)
CPT/HCPCS: 36415; 80053; 84703; 85025; 99283-25

== ENCOUNTER 2021-01-05 09:01 | Inpatient (IN) | payer OTHER ==
[2021-01-05 10:34] VITALS: BMI 26.6
[2021-01-05] MEDS ORDERED: ACETAMINOPHEN 325 MG TABLET (FP) PO PRN ×2 (12:24)
[2021-01-05] MEDS ORDERED: cloNIDine HCL 0.1 MG TABLET PO PRN (12:24)
[2021-01-05] MEDS ORDERED: BISMUTH SUBSALICYLATE 524 MG/30 ML UD PO PRN (12:24)
[2021-01-05] MEDS ORDERED: MENTHOL/PHENOL 1 EACH UD MM PRN (12:24)
[2021-01-05] MEDS ORDERED: chlordiazePOXIDE HCL 25 MG CAPSULE PO PRN (12:24)
[2021-01-05] MEDS ORDERED: MAGNESIUM CITRATE 300 ML BOTTLE PO PRN (12:24)
[2021-01-05] MEDS ORDERED: MAGNESIUM HYDROX 2400MG/30ML ORAL SUSPENSION 30 ML CUP PO PRN (12:24)
[2021-01-05] MEDS ORDERED: METHOCARBAMOL 500 MG TABLET PO PRN (12:24)
[2021-01-05] MEDS ORDERED: NALOXONE HCL 0.4 MG/ML VIAL IM PRN (12:24)
[2021-01-05] MEDS ORDERED: METHADONE HCL 10 MG TABLET (FOR DETOX USE ONLY) PO ONE (12:24)
[2021-01-05] MEDS: NICOTINE 14 MG/24 HOURS TOPICAL PATCH TD SCH (13:37)
[2021-01-05] MEDS: IBUPROFEN 400 MG TABLET (FP) PO PRN (13:38)
[2021-01-05] MEDS: NICOTINE POLACRILEX 2 MG GUM BUC PRN ×2 (13:41→19:29)
[2021-01-05] MEDS ORDERED: ALBUTEROL SO4 HFA INHALER IH PRN (14:12)
[2021-01-05] MEDS: chlordiazePOXIDE HCL 25 MG CAPSULE PO SCH ×2 (18:20→22:19)
[2021-01-05] MEDS: MAG HYDROX/AL HYDROX/SIMETH 30 ML UNIT-DOSE CUP PO PRN (18:22)
[2021-01-05] MEDS ORDERED: MASKS NR ONE (20:27)
[2021-01-05] MEDS: THIAMINE HCL 100 MG TABLET (FP) PO SCH (22:19)
[2021-01-05] MEDS: MELATONIN 5 MG TABLETS PO SCH (22:19)
[2021-01-05] MEDS: BUDESONIDE/FORMETEROL FUMARATE 80/4.5 mcg INHALER IH SCH (22:20)
[2021-01-06] MEDS: chlordiazePOXIDE HCL 25 MG CAPSULE PO SCH ×4 (06:38→22:02)
[2021-01-06] MEDS ORDERED: METHADONE HCL 10 MG TABLET (FOR DETOX USE ONLY) ONE (08:54)
[2021-01-06] MEDS ORDERED: METHADONE HCL 5 MG TABLET (FOR DETOX USE ONLY) ONE (08:54)
[2021-01-06] MEDS ORDERED: METHADONE (DETOX) 20 MG, METHADONE (DETOX) 5 MG PO ONE (10:00)
[2021-01-06] MEDS: PRENATAL VITAMINS W/ FOLIC ACID TABLET (FP) PO SCH (10:50)
[2021-01-06] MEDS: BUDESONIDE/FORMETEROL FUMARATE 80/4.5 mcg INHALER IH SCH ×2 (10:50→22:01)
[2021-01-06] MEDS: NICOTINE 14 MG/24 HOURS TOPICAL PATCH TD SCH (10:50)
[2021-01-06 11:41] LABS: HEMATOCRIT 37.2 % (32.4-45.2); HEMOGLOBIN 12.8 GM/dL (10.7-15.3); MCH 30.9 pg (25.7-33.7); MCHC 34.3 g/dl (32.0-36.0); MEAN CELL VOLUME 90.2 fl (80-96); MEAN PLT VOLUME 6.8 fl (7.5-11.1); PLATELET COUNT 339 K/MM3 (134-434); RBC 4.13 M/mm3 (3.60-5.2); RDW 15.4 % (11.6-15.6); WHITE BLOOD COUNT 7.5 K/mm3 (4.0-10.0)
[2021-01-06 11:46] LABS: POTASSIUM 4.1 mmol/L (3.5-5.1)
[2021-01-06 11:49] LABS: ALBUMIN 3.6 g/dl (3.4-5.0); BLOOD UREA NITROGEN 12.2 mg/dL (7-18); CALCIUM 8.8 mg/dL (8.5-10.1)
[2021-01-06 11:53] LABS: CREATININE 0.9 mg/dL (0.55-1.3)
[2021-01-06 11:55] LABS: BILIRUBIN,TOTAL 0.8 mg/dL (0.2-1); TOT PROT 6.9 g/dl (6.4-8.2)
[2021-01-06 13:01] LABS: HIV INTERPRETATION NEGATIVE (NEGATIVE)
[2021-01-06] MEDS: COLLOIDAL OATMEAL 1 BAR EACH TP PRN (13:30)
[2021-01-06] MEDS: CITALOPRAM HYDROBROMIDE 10 MG TABLET PO SCH (15:16)
[2021-01-06] MEDS: ARIPiprazole 10 MG TABLET PO SCH (15:16)
[2021-01-06] MEDS: traZODone HCL 50 MG TABLET (FP) PO SCH (21:59)
[2021-01-06] MEDS: MELATONIN 5 MG TABLETS PO SCH (22:01)
[2021-01-06] MEDS: THIAMINE HCL 100 MG TABLET (FP) PO SCH (22:01)
[2021-01-07] MEDS: IBUPROFEN 400 MG TABLET (FP) PO PRN (05:56)
[2021-01-07] MEDS: chlordiazePOXIDE HCL 25 MG CAPSULE PO SCH ×4 (05:59→22:04)
[2021-01-07] MEDS ORDERED: METHADONE HCL 10 MG TABLET (FOR DETOX USE ONLY) PO ONE (10:00)
[2021-01-07] MEDS: ARIPiprazole 10 MG TABLET PO SCH (10:19)
[2021-01-07] MEDS: PRENATAL VITAMINS W/ FOLIC ACID TABLET (FP) PO SCH (10:19)
[2021-01-07] MEDS: NICOTINE 14 MG/24 HOURS TOPICAL PATCH TD SCH (10:45)
[2021-01-07] MEDS: BUDESONIDE/FORMETEROL FUMARATE 80/4.5 mcg INHALER IH SCH ×2 (10:46→22:51)
[2021-01-07] MEDS: CITALOPRAM HYDROBROMIDE 10 MG TABLET PO SCH (11:12)
[2021-01-07] MEDS: MAG HYDROX/AL HYDROX/SIMETH 30 ML UNIT-DOSE CUP PO PRN (18:22)
[2021-01-07] MEDS: THIAMINE HCL 100 MG TABLET (FP) PO SCH (22:03)
[2021-01-07] MEDS: MELATONIN 5 MG TABLETS PO SCH (22:03)
[2021-01-07] MEDS: traZODone HCL 50 MG TABLET (FP) PO SCH (22:03)
[2021-01-08] MEDS ORDERED: chlordiazePOXIDE HCL 10 MG CAPSULE PO PRN
[2021-01-08] MEDS: chlordiazePOXIDE HCL 10 MG CAPSULE PO SCH ×4 (06:23→22:18)
[2021-01-08] MEDS ORDERED: METHADONE HCL 5 MG TABLET (FOR DETOX USE ONLY) ONE (08:31)
[2021-01-08] MEDS ORDERED: METHADONE HCL 10 MG TABLET (FOR DETOX USE ONLY) ONE (08:32)
[2021-01-08] MEDS: COLLOIDAL OATMEAL 1 BAR EACH TP PRN (08:47)
[2021-01-08] MEDS ORDERED: METHADONE (DETOX) 10 MG, METHADONE (DETOX) 5 MG PO ONE (10:00)
[2021-01-08] MEDS: ARIPiprazole 10 MG TABLET PO SCH (10:55)
[2021-01-08] MEDS: CITALOPRAM HYDROBROMIDE 10 MG TABLET PO SCH (10:55)
[2021-01-08] MEDS: NICOTINE 14 MG/24 HOURS TOPICAL PATCH TD SCH (10:58)
[2021-01-08] MEDS: BUDESONIDE/FORMETEROL FUMARATE 80/4.5 mcg INHALER IH SCH ×2 (11:54→22:18)
[2021-01-08] MEDS: PRENATAL VITAMINS W/ FOLIC ACID TABLET (FP) PO SCH (11:54)
[2021-01-08] MEDS: MAG HYDROX/AL HYDROX/SIMETH 30 ML UNIT-DOSE CUP PO PRN (17:25)
[2021-01-08] MEDS: traZODone HCL 50 MG TABLET (FP) PO SCH (22:17)
[2021-01-08] MEDS: THIAMINE HCL 100 MG TABLET (FP) PO SCH (22:18)
[2021-01-08] MEDS: MELATONIN 5 MG TABLETS PO SCH (22:18)
[2021-01-09] MEDS: chlordiazePOXIDE HCL 10 MG CAPSULE PO SCH ×2 (06:09→17:56)
[2021-01-09] MEDS ORDERED: METHADONE HCL 10 MG TABLET (FOR DETOX USE ONLY) PO ONE (10:00)
[2021-01-09] MEDS: ARIPiprazole 10 MG TABLET PO SCH (10:36)
[2021-01-09] MEDS: CITALOPRAM HYDROBROMIDE 10 MG TABLET PO SCH (10:36)
[2021-01-09] MEDS: NICOTINE 14 MG/24 HOURS TOPICAL PATCH TD SCH (10:38)
[2021-01-09] MEDS: PRENATAL VITAMINS W/ FOLIC ACID TABLET (FP) PO SCH (10:39)
[2021-01-09] MEDS: BUDESONIDE/FORMETEROL FUMARATE 80/4.5 mcg INHALER IH SCH ×2 (10:39→22:56)
[2021-01-09] MEDS ORDERED: COLLOIDAL OATMEAL 1 BAR EACH TP PRN (11:11)
[2021-01-09] MEDS: AMMONIUM LACTATE 12% LOTION 225 GM BOTTLE TP SCH ×2 (12:34→22:57)
[2021-01-09] MEDS: THIAMINE HCL 100 MG TABLET (FP) PO SCH (22:55)
[2021-01-09] MEDS: traZODone HCL 50 MG TABLET (FP) PO SCH (22:55)
[2021-01-09] MEDS: MELATONIN 5 MG TABLETS PO SCH (22:56)
[2021-01-10] MEDS ORDERED: chlordiazePOXIDE HCL 10 MG CAPSULE PO ONE (05:00)
[2021-01-10] MEDS ORDERED: METHADONE HCL 5 MG TABLET (FOR DETOX USE ONLY) PO ONE (06:00)
[2021-01-10 09:37] VITALS: BP 118/51; PULSE 69; TEMP 98.1
[2021-01-10] MEDS: CITALOPRAM HYDROBROMIDE 10 MG TABLET PO SCH (10:16)
[2021-01-10] MEDS: AMMONIUM LACTATE 12% LOTION 225 GM BOTTLE TP SCH (10:16)
[2021-01-10] MEDS: ARIPiprazole 10 MG TABLET PO SCH (10:16)
[2021-01-10] MEDS: NICOTINE 14 MG/24 HOURS TOPICAL PATCH TD SCH (10:17)
[2021-01-10] MEDS: BUDESONIDE/FORMETEROL FUMARATE 80/4.5 mcg INHALER IH SCH (10:18)
[2021-01-10] MEDS: PRENATAL VITAMINS W/ FOLIC ACID TABLET (FP) PO SCH (10:18)
== END 2021-01-10 11:05 | disposition other institution (70) | DRG 897 ==
LOC: YASAS 09:01 → Y6N 12:25
PROVIDERS: ADMIT Allergy & Immunology; ATTEND Allergy & Immunology
PROC: HZ2ZZZZ Detoxification Services for Substance Abuse Treatment (ICD-10-PCS; principal; 2021-01-05)
DX: F11.23 Opioid dependence with withdrawal (principal); F14.20 Cocaine dependence, uncomplicated; F10.230 Alcohol dependence with withdrawal, uncomplicated; F12.20 Cannabis dependence, uncomplicated; F17.210 Nicotine dependence, cigarettes, uncomplicated; F25.9 Schizoaffective disorder, unspecified; F43.10 Post-traumatic stress disorder, unspecified; I10 Essential (primary) hypertension; J45.20 Mild intermittent asthma, uncomplicated; M54.5 Low back pain; Z62.810 Personal history of physical and sexual abuse in childhood; Z88.8 Allergy status to other drugs, medicaments and biological substances; Z91.013 Allergy to seafood
CPT/HCPCS: 36415; 80053; 81025; 85027; 86780; 87389; C9803; U0003

== ENCOUNTER 2021-01-10 11:12 | Inpatient (IN) | payer OTHER ==
[2021-01-10] MEDS ORDERED: MAGNESIUM CITRATE 300 ML BOTTLE PO PRN (12:50)
[2021-01-10] MEDS ORDERED: MENTHOL/PHENOL 1 EACH UD MM PRN (12:50)
[2021-01-10] MEDS ORDERED: MAG HYDROX/AL HYDROX/SIMETH 30 ML UNIT-DOSE CUP PO PRN (12:50)
[2021-01-10] MEDS ORDERED: MAGNESIUM HYDROX 2400MG/30ML ORAL SUSPENSION 30 ML CUP PO PRN (12:50)
[2021-01-10] MEDS ORDERED: P-EPHED 60MG/TRIPROLIDI 2.5MG TABLET PO PRN (12:50)
[2021-01-10] MEDS ORDERED: guaiFENesin 200 MG/10 ML 10 ML UNIT-DOSE CUPS PO PRN (12:50)
[2021-01-10] MEDS ORDERED: LOPERAMIDE HCL 2 MG CAPSULE PO PRN (12:50)
[2021-01-10] MEDS ORDERED: PT OWN MED DRAWER 7, Y5N ONE ×3 (13:57→21:33)
[2021-01-10] MEDS: METHOCARBAMOL 500 MG TABLET PO SCH ×3 (14:02→21:14)
[2021-01-10] MEDS: COLLOIDAL OATMEAL 1 BAR EACH TP PRN (14:02)
[2021-01-10] MEDS: BUDESONIDE/FORMETEROL FUMARATE 80/4.5 mcg INHALER IH SCH (21:14)
[2021-01-10] MEDS: MELATONIN 5 MG TABLETS PO SCH (21:14)
[2021-01-10] MEDS: THIAMINE HCL 100 MG TABLET (FP) PO SCH (21:14)
[2021-01-10] MEDS: hydrOXYzine PAMOATE 25 MG CAPSULE (FP) PO PRN (21:14)
[2021-01-10] MEDS: traZODone HCL 50 MG TABLET (FP) PO SCH (21:15)
[2021-01-11] MEDS: AMMONIUM LACTATE 12% LOTION 225 GM BOTTLE TP PRN ×2 (09:46→15:31)
[2021-01-11] MEDS: BUDESONIDE/FORMETEROL FUMARATE 80/4.5 mcg INHALER IH SCH ×2 (09:46→21:28)
[2021-01-11] MEDS: ARIPiprazole 10 MG TABLET PO SCH (09:47)
[2021-01-11] MEDS: METHOCARBAMOL 500 MG TABLET PO SCH ×4 (09:47→21:29)
[2021-01-11] MEDS: CITALOPRAM HYDROBROMIDE 10 MG TABLET PO SCH (09:47)
[2021-01-11] MEDS: PRENATAL VITAMINS W/ FOLIC ACID TABLET (FP) PO SCH (09:47)
[2021-01-11] MEDS: NICOTINE 14 MG/24 HOURS TOPICAL PATCH TD SCH (09:48)
[2021-01-11] MEDS: NICOTINE POLACRILEX 2 MG GUM BUC PRN (11:38)
[2021-01-11] MEDS: ALBUTEROL SO4 HFA INHALER IH PRN (21:29)
[2021-01-11] MEDS: THIAMINE HCL 100 MG TABLET (FP) PO SCH (21:29)
[2021-01-11] MEDS: traZODone HCL 50 MG TABLET (FP) PO SCH (21:29)
[2021-01-11] MEDS: hydrOXYzine PAMOATE 25 MG CAPSULE (FP) PO PRN (21:29)
[2021-01-11] MEDS: MELATONIN 5 MG TABLETS PO SCH (21:29)
[2021-01-12] MEDS: PRENATAL VITAMINS W/ FOLIC ACID TABLET (FP) PO SCH (10:26)
[2021-01-12] MEDS: BUDESONIDE/FORMETEROL FUMARATE 80/4.5 mcg INHALER IH SCH ×2 (10:26→21:53)
[2021-01-12] MEDS: ARIPiprazole 10 MG TABLET PO SCH (10:26)
[2021-01-12] MEDS: CITALOPRAM HYDROBROMIDE 10 MG TABLET PO SCH (10:26)
[2021-01-12] MEDS: METHOCARBAMOL 500 MG TABLET PO SCH ×4 (10:26→21:52)
[2021-01-12] MEDS: hydrOXYzine PAMOATE 25 MG CAPSULE (FP) PO PRN ×2 (10:26→13:52)
[2021-01-12] MEDS: NICOTINE POLACRILEX 2 MG GUM BUC PRN ×3 (10:27→15:59)
[2021-01-12] MEDS: NICOTINE 14 MG/24 HOURS TOPICAL PATCH TD SCH (10:27)
[2021-01-12] MEDS: MELATONIN 5 MG TABLETS PO SCH (21:52)
[2021-01-12] MEDS: traZODone HCL 50 MG TABLET (FP) PO SCH (21:52)
[2021-01-12] MEDS: THIAMINE HCL 100 MG TABLET (FP) PO SCH (21:53)
[2021-01-13] MEDS: ARIPiprazole 10 MG TABLET PO SCH (10:31)
[2021-01-13] MEDS: hydrOXYzine PAMOATE 25 MG CAPSULE (FP) PO PRN (10:31)
[2021-01-13] MEDS: PRENATAL VITAMINS W/ FOLIC ACID TABLET (FP) PO SCH (10:31)
[2021-01-13] MEDS: METHOCARBAMOL 500 MG TABLET PO SCH ×4 (10:31→21:33)
[2021-01-13] MEDS: NICOTINE 14 MG/24 HOURS TOPICAL PATCH TD SCH (10:32)
[2021-01-13] MEDS: CITALOPRAM HYDROBROMIDE 10 MG TABLET PO SCH (10:32)
[2021-01-13] MEDS: BUDESONIDE/FORMETEROL FUMARATE 80/4.5 mcg INHALER IH SCH ×2 (10:32→21:34)
[2021-01-13] MEDS: COLLOIDAL OATMEAL 1 BAR EACH TP PRN (10:34)
[2021-01-13] MEDS: IBUPROFEN 400 MG TABLET (FP) PO PRN (14:17)
[2021-01-13] MEDS: AMMONIUM LACTATE 12% LOTION 225 GM BOTTLE TP PRN (14:17)
[2021-01-13] MEDS: NICOTINE POLACRILEX 2 MG GUM BUC PRN ×2 (14:19→21:34)
[2021-01-13] MEDS: MELATONIN 5 MG TABLETS PO SCH (21:33)
[2021-01-13] MEDS: THIAMINE HCL 100 MG TABLET (FP) PO SCH (21:33)
[2021-01-13] MEDS: traZODone HCL 50 MG TABLET (FP) PO SCH (21:33)
[2021-01-14] MEDS: BUDESONIDE/FORMETEROL FUMARATE 80/4.5 mcg INHALER IH SCH ×2 (10:50→21:39)
[2021-01-14] MEDS: PRENATAL VITAMINS W/ FOLIC ACID TABLET (FP) PO SCH (10:50)
[2021-01-14] MEDS: NICOTINE 14 MG/24 HOURS TOPICAL PATCH TD SCH (10:50)
[2021-01-14] MEDS: CITALOPRAM HYDROBROMIDE 10 MG TABLET PO SCH (10:51)
[2021-01-14] MEDS: METHOCARBAMOL 500 MG TABLET PO SCH ×4 (10:51→21:39)
[2021-01-14] MEDS: ARIPiprazole 10 MG TABLET PO SCH (10:52)
[2021-01-14] MEDS: NICOTINE POLACRILEX 2 MG GUM BUC PRN ×3 (10:54→17:35)
[2021-01-14] MEDS: hydrOXYzine PAMOATE 25 MG CAPSULE (FP) PO PRN ×2 (17:33→21:39)
[2021-01-14] MEDS: ALBUTEROL SO4 HFA INHALER IH PRN (21:39)
[2021-01-14] MEDS: traZODone HCL 50 MG TABLET (FP) PO SCH (21:39)
[2021-01-14] MEDS: THIAMINE HCL 100 MG TABLET (FP) PO SCH (21:39)
[2021-01-14] MEDS: MELATONIN 5 MG TABLETS PO SCH (21:39)
[2021-01-15] MEDS: IBUPROFEN 400 MG TABLET (FP) PO PRN ×2 (07:58→19:00)
[2021-01-15] MEDS: PRENATAL VITAMINS W/ FOLIC ACID TABLET (FP) PO SCH (10:30)
[2021-01-15] MEDS: BUDESONIDE/FORMETEROL FUMARATE 80/4.5 mcg INHALER IH SCH ×2 (10:31→21:56)
[2021-01-15] MEDS: hydrOXYzine PAMOATE 25 MG CAPSULE (FP) PO PRN ×4 (10:31→21:56)
[2021-01-15] MEDS: METHOCARBAMOL 500 MG TABLET PO SCH ×4 (10:31→21:56)
[2021-01-15] MEDS: ARIPiprazole 10 MG TABLET PO SCH (10:32)
[2021-01-15] MEDS: CITALOPRAM HYDROBROMIDE 10 MG TABLET PO SCH (10:32)
[2021-01-15] MEDS: NICOTINE 14 MG/24 HOURS TOPICAL PATCH TD SCH (10:32)
[2021-01-15] MEDS: NICOTINE POLACRILEX 2 MG GUM BUC PRN ×2 (10:35→17:32)
[2021-01-15] MEDS: ALBUTEROL SO4 HFA INHALER IH PRN (21:55)
[2021-01-15] MEDS: THIAMINE HCL 100 MG TABLET (FP) PO SCH (21:56)
[2021-01-15] MEDS: traZODone HCL 50 MG TABLET (FP) PO SCH (21:56)
[2021-01-15] MEDS: MELATONIN 5 MG TABLETS PO SCH (21:56)
[2021-01-16] MEDS: PRENATAL VITAMINS W/ FOLIC ACID TABLET (FP) PO SCH (10:36)
[2021-01-16] MEDS: NICOTINE 14 MG/24 HOURS TOPICAL PATCH TD SCH (10:36)
[2021-01-16] MEDS: BUDESONIDE/FORMETEROL FUMARATE 80/4.5 mcg INHALER IH SCH ×2 (10:36→21:25)
[2021-01-16] MEDS: CITALOPRAM HYDROBROMIDE 10 MG TABLET PO SCH (10:37)
[2021-01-16] MEDS: METHOCARBAMOL 500 MG TABLET PO SCH ×4 (10:37→21:25)
[2021-01-16] MEDS: ARIPiprazole 10 MG TABLET PO SCH (10:37)
[2021-01-16] MEDS: NICOTINE POLACRILEX 2 MG GUM BUC PRN ×3 (10:39→18:38)
[2021-01-16] MEDS: ACETAMINOPHEN 325 MG TABLET (FP) PO PRN ×2 (14:27→18:37)
[2021-01-16] MEDS: MELATONIN 5 MG TABLETS PO SCH (21:25)
[2021-01-16] MEDS: traZODone HCL 50 MG TABLET (FP) PO SCH (21:25)
[2021-01-16] MEDS: hydrOXYzine PAMOATE 25 MG CAPSULE (FP) PO PRN (21:25)
[2021-01-16] MEDS: THIAMINE HCL 100 MG TABLET (FP) PO SCH (21:25)
[2021-01-17] MEDS: ACETAMINOPHEN 325 MG TABLET (FP) PO PRN ×3 (06:28→21:33)
[2021-01-17] MEDS: PRENATAL VITAMINS W/ FOLIC ACID TABLET (FP) PO SCH (10:31)
[2021-01-17] MEDS: METHOCARBAMOL 500 MG TABLET PO SCH ×4 (10:31→21:32)
[2021-01-17] MEDS: ARIPiprazole 10 MG TABLET PO SCH (10:31)
[2021-01-17] MEDS: CITALOPRAM HYDROBROMIDE 10 MG TABLET PO SCH (10:32)
[2021-01-17] MEDS: BUDESONIDE/FORMETEROL FUMARATE 80/4.5 mcg INHALER IH SCH ×2 (10:32→21:32)
[2021-01-17] MEDS: NICOTINE 14 MG/24 HOURS TOPICAL PATCH TD SCH (10:32)
[2021-01-17] MEDS: AMMONIUM LACTATE 12% LOTION 225 GM BOTTLE TP PRN (10:33)
[2021-01-17] MEDS: NICOTINE POLACRILEX 2 MG GUM BUC PRN ×2 (10:34→14:23)
[2021-01-17] MEDS: THIAMINE HCL 100 MG TABLET (FP) PO SCH (21:32)
[2021-01-17] MEDS: MELATONIN 5 MG TABLETS PO SCH (21:32)
[2021-01-17] MEDS: traZODone HCL 50 MG TABLET (FP) PO SCH (21:32)
[2021-01-18] MEDS: IBUPROFEN 400 MG TABLET (FP) PO PRN ×2 (06:41→16:22)
[2021-01-18] MEDS: PRENATAL VITAMINS W/ FOLIC ACID TABLET (FP) PO SCH (10:11)
[2021-01-18] MEDS: ARIPiprazole 10 MG TABLET PO SCH (10:12)
[2021-01-18] MEDS: METHOCARBAMOL 500 MG TABLET PO SCH ×4 (10:12→21:10)
[2021-01-18] MEDS: CITALOPRAM HYDROBROMIDE 10 MG TABLET PO SCH (10:13)
[2021-01-18] MEDS: NICOTINE 14 MG/24 HOURS TOPICAL PATCH TD SCH (10:13)
[2021-01-18] MEDS: BUDESONIDE/FORMETEROL FUMARATE 80/4.5 mcg INHALER IH SCH ×2 (10:14→21:15)
[2021-01-18] MEDS: COLLOIDAL OATMEAL 1 BAR EACH TP PRN (10:42)
[2021-01-18] MEDS: NICOTINE POLACRILEX 2 MG GUM BUC PRN ×2 (12:36→18:03)
[2021-01-18] MEDS: traZODone HCL 100 MG TABLET (FP) PO SCH (21:10)
[2021-01-18] MEDS: THIAMINE HCL 100 MG TABLET (FP) PO SCH (21:10)
[2021-01-18] MEDS ORDERED: PT OWN MED DRAWER 7, Y5N ONE (21:10)
[2021-01-18] MEDS: MELATONIN 5 MG TABLETS PO SCH (21:11)
[2021-01-18] MEDS: busPIRone HCL 10 MG TABLET (FP) PO SCH (21:11)
[2021-01-19] MEDS: hydrOXYzine PAMOATE 25 MG CAPSULE (FP) PO PRN ×3 (01:45→18:04)
[2021-01-19] MEDS: IBUPROFEN 400 MG TABLET (FP) PO PRN ×2 (06:27→18:35)
[2021-01-19] MEDS: NICOTINE POLACRILEX 2 MG GUM BUC PRN ×4 (07:37→18:32)
[2021-01-19] MEDS: CITALOPRAM HYDROBROMIDE 10 MG TABLET PO SCH (10:15)
[2021-01-19] MEDS: METHOCARBAMOL 500 MG TABLET PO SCH ×4 (10:15→21:35)
[2021-01-19] MEDS: PRENATAL VITAMINS W/ FOLIC ACID TABLET (FP) PO SCH (10:15)
[2021-01-19] MEDS: NICOTINE 14 MG/24 HOURS TOPICAL PATCH TD SCH (10:15)
[2021-01-19] MEDS: ARIPiprazole 15 MG TABLET PO SCH (10:15)
[2021-01-19] MEDS: busPIRone HCL 10 MG TABLET (FP) PO SCH ×2 (10:15→21:35)
[2021-01-19] MEDS: BUDESONIDE/FORMETEROL FUMARATE 80/4.5 mcg INHALER IH SCH ×2 (10:16→23:53)
[2021-01-19] MEDS: ALBUTEROL SO4 HFA INHALER IH PRN (10:17)
[2021-01-19] MEDS: MELATONIN 5 MG TABLETS PO SCH (21:35)
[2021-01-19] MEDS: THIAMINE HCL 100 MG TABLET (FP) PO SCH (21:35)
[2021-01-19] MEDS: traZODone HCL 100 MG TABLET (FP) PO SCH (21:35)
[2021-01-20] MEDS: IBUPROFEN 400 MG TABLET (FP) PO PRN ×2 (06:45→13:39)
[2021-01-20] MEDS: hydrOXYzine PAMOATE 25 MG CAPSULE (FP) PO PRN ×5 (06:45→21:40)
[2021-01-20] MEDS: BUDESONIDE/FORMETEROL FUMARATE 80/4.5 mcg INHALER IH SCH ×2 (10:22→21:45)
[2021-01-20] MEDS: PRENATAL VITAMINS W/ FOLIC ACID TABLET (FP) PO SCH (10:23)
[2021-01-20] MEDS: METHOCARBAMOL 500 MG TABLET PO SCH ×4 (10:23→21:44)
[2021-01-20] MEDS: busPIRone HCL 10 MG TABLET (FP) PO SCH ×2 (10:23→21:44)
[2021-01-20] MEDS: CITALOPRAM HYDROBROMIDE 10 MG TABLET PO SCH (10:24)
[2021-01-20] MEDS: ARIPiprazole 15 MG TABLET PO SCH (10:24)
[2021-01-20] MEDS: NICOTINE 14 MG/24 HOURS TOPICAL PATCH TD SCH (10:25)
[2021-01-20] MEDS: NICOTINE POLACRILEX 2 MG GUM BUC PRN ×3 (10:26→17:33)
[2021-01-20] MEDS: THIAMINE HCL 100 MG TABLET (FP) PO SCH (21:40)
[2021-01-20] MEDS: traZODone HCL 100 MG TABLET (FP) PO SCH (21:43)
[2021-01-20] MEDS: MELATONIN 5 MG TABLETS PO SCH (21:43)
[2021-01-21] MEDS: hydrOXYzine PAMOATE 25 MG CAPSULE (FP) PO PRN ×2 (03:24→13:00)
[2021-01-21] MEDS: IBUPROFEN 400 MG TABLET (FP) PO PRN (06:25)
[2021-01-21] MEDS: BUDESONIDE/FORMETEROL FUMARATE 80/4.5 mcg INHALER IH SCH ×2 (10:17→21:31)
[2021-01-21] MEDS: CITALOPRAM HYDROBROMIDE 10 MG TABLET PO SCH (10:18)
[2021-01-21] MEDS: ARIPiprazole 15 MG TABLET PO SCH (10:18)
[2021-01-21] MEDS: busPIRone HCL 10 MG TABLET (FP) PO SCH ×2 (10:18→21:29)
[2021-01-21] MEDS: METHOCARBAMOL 500 MG TABLET PO SCH ×4 (10:18→21:29)
[2021-01-21] MEDS: AMMONIUM LACTATE 12% LOTION 225 GM BOTTLE TP PRN (10:19)
[2021-01-21] MEDS: PRENATAL VITAMINS W/ FOLIC ACID TABLET (FP) PO SCH (10:20)
[2021-01-21] MEDS: NICOTINE 14 MG/24 HOURS TOPICAL PATCH TD SCH (10:21)
[2021-01-21] MEDS: NICOTINE POLACRILEX 2 MG GUM BUC PRN ×2 (10:22→20:07)
[2021-01-21] MEDS: COLLOIDAL OATMEAL 1 BAR EACH TP PRN (16:03)
[2021-01-21] MEDS: ACETAMINOPHEN 325 MG TABLET (FP) PO PRN (16:50)
[2021-01-21] MEDS: traZODone HCL 100 MG TABLET (FP) PO SCH (21:29)
[2021-01-21] MEDS: MELATONIN 5 MG TABLETS PO SCH (21:29)
[2021-01-21] MEDS: THIAMINE HCL 100 MG TABLET (FP) PO SCH (21:29)
[2021-01-22] MEDS: hydrOXYzine PAMOATE 25 MG CAPSULE (FP) PO PRN ×2 (01:53→23:21)
[2021-01-22] MEDS: IBUPROFEN 400 MG TABLET (FP) PO PRN (07:34)
[2021-01-22] MEDS ORDERED: PT OWN MED DRAWER 7, Y5N ONE (08:31)
[2021-01-22] MEDS: PRENATAL VITAMINS W/ FOLIC ACID TABLET (FP) PO SCH (10:22)
[2021-01-22] MEDS: BUDESONIDE/FORMETEROL FUMARATE 80/4.5 mcg INHALER IH SCH ×2 (10:23→21:43)
[2021-01-22] MEDS: CITALOPRAM HYDROBROMIDE 10 MG TABLET PO SCH (10:25)
[2021-01-22] MEDS: busPIRone HCL 10 MG TABLET (FP) PO SCH ×2 (10:25→21:44)
[2021-01-22] MEDS: NICOTINE 14 MG/24 HOURS TOPICAL PATCH TD SCH (10:26)
[2021-01-22] MEDS: ARIPiprazole 15 MG TABLET PO SCH (10:26)
[2021-01-22] MEDS: METHOCARBAMOL 500 MG TABLET PO SCH ×4 (10:28→21:44)
[2021-01-22] MEDS: ACETAMINOPHEN 325 MG TABLET (FP) PO PRN ×2 (10:29→18:53)
[2021-01-22] MEDS: AMMONIUM LACTATE 12% LOTION 225 GM BOTTLE TP PRN (10:30)
[2021-01-22] MEDS: NICOTINE POLACRILEX 2 MG GUM BUC PRN (20:09)
[2021-01-22] MEDS: THIAMINE HCL 100 MG TABLET (FP) PO SCH (21:44)
[2021-01-22] MEDS: MELATONIN 5 MG TABLETS PO SCH (21:44)
[2021-01-22] MEDS: traZODone HCL 100 MG TABLET (FP) PO SCH (21:44)
[2021-01-23] MEDS: IBUPROFEN 400 MG TABLET (FP) PO PRN (07:44)
[2021-01-23] MEDS: PRENATAL VITAMINS W/ FOLIC ACID TABLET (FP) PO SCH (10:17)
[2021-01-23] MEDS: BUDESONIDE/FORMETEROL FUMARATE 80/4.5 mcg INHALER IH SCH ×2 (10:18→21:37)
[2021-01-23] MEDS: METHOCARBAMOL 500 MG TABLET PO SCH ×4 (10:18→21:37)
[2021-01-23] MEDS: busPIRone HCL 10 MG TABLET (FP) PO SCH ×2 (10:18→21:37)
[2021-01-23] MEDS: NICOTINE 14 MG/24 HOURS TOPICAL PATCH TD SCH (10:19)
[2021-01-23] MEDS: CITALOPRAM HYDROBROMIDE 10 MG TABLET PO SCH (10:20)
[2021-01-23] MEDS: ARIPiprazole 15 MG TABLET PO SCH (10:21)
[2021-01-23] MEDS: NICOTINE POLACRILEX 2 MG GUM BUC PRN ×2 (10:22→16:45)
[2021-01-23] MEDS: ACETAMINOPHEN 325 MG TABLET (FP) PO PRN (13:17)
[2021-01-23] MEDS: hydrOXYzine PAMOATE 25 MG CAPSULE (FP) PO PRN (17:33)
[2021-01-23] MEDS: MELATONIN 5 MG TABLETS PO SCH (21:37)
[2021-01-23] MEDS: traZODone HCL 100 MG TABLET (FP) PO SCH (21:38)
[2021-01-23] MEDS: THIAMINE HCL 100 MG TABLET (FP) PO SCH (21:38)
[2021-01-24 07:11] VITALS: BP 138/82; PULSE 65; TEMP 97.9
[2021-01-24] MEDS: BUDESONIDE/FORMETEROL FUMARATE 80/4.5 mcg INHALER IH SCH (09:52)
[2021-01-24] MEDS: CITALOPRAM HYDROBROMIDE 10 MG TABLET PO SCH (09:52)
[2021-01-24] MEDS: ARIPiprazole 15 MG TABLET PO SCH (09:52)
[2021-01-24] MEDS: PRENATAL VITAMINS W/ FOLIC ACID TABLET (FP) PO SCH (09:52)
[2021-01-24] MEDS: busPIRone HCL 10 MG TABLET (FP) PO SCH (09:52)
[2021-01-24] MEDS: IBUPROFEN 400 MG TABLET (FP) PO PRN (09:53)
[2021-01-24] MEDS: METHOCARBAMOL 500 MG TABLET PO SCH (09:53)
[2021-01-24] MEDS: NICOTINE 14 MG/24 HOURS TOPICAL PATCH TD SCH (09:56)
[2021-01-24] MEDS: NICOTINE POLACRILEX 2 MG GUM BUC PRN (09:56)
== END 2021-01-24 10:10 | disposition home or self-care (01) | DRG 895 ==
LOC: YASAS 11:12 → Y3E 11:15 → Y5N 01-11 14:37
PROVIDERS: ADMIT Allergy & Immunology; ATTEND Allergy & Immunology
PROC: HZ42ZZZ Group Counseling for Substance Abuse Treatment, Cognitive-Behavioral (ICD-10-PCS; principal; 2021-01-10)
DX: F11.20 Opioid dependence, uncomplicated (principal); F14.20 Cocaine dependence, uncomplicated; F19.280 Other psychoactive substance dependence with psychoactive substance-induced anxiety disorder; F10.20 Alcohol dependence, uncomplicated; F12.20 Cannabis dependence, uncomplicated; F17.210 Nicotine dependence, cigarettes, uncomplicated; F25.9 Schizoaffective disorder, unspecified; F41.9 Anxiety disorder, unspecified; F32.9 Major depressive disorder, single episode, unspecified; F43.10 Post-traumatic stress disorder, unspecified; I10 Essential (primary) hypertension; J45.909 Unspecified asthma, uncomplicated; M25.561 Pain in right knee; M25.562 Pain in left knee; M54.5 Low back pain; G89.29 Other chronic pain; Z62.810 Personal history of physical and sexual abuse in childhood; Z91.410 Personal history of adult physical and sexual abuse; Z99.89 Dependence on other enabling machines and devices; Z56.0 Unemployment, unspecified; Z59.0 Homelessness
CPT/HCPCS: C9803; U0003

== ENCOUNTER 2021-02-25 20:25 | Inpatient (IN) | payer OTHER ==
[2021-02-25 21:21] VITALS: BMI 27.2
[2021-02-25] MEDS ORDERED: P-EPHED 60MG/TRIPROLIDI 2.5MG TABLET PO PRN (21:57)
[2021-02-25] MEDS ORDERED: ONDANSETRON *ODT* 4 MG TABLET SL PRN (21:57)
[2021-02-25] MEDS ORDERED: MENTHOL/PHENOL 1 EACH UD MM PRN (21:57)
[2021-02-25] MEDS ORDERED: METHOCARBAMOL 500 MG TABLET PO PRN (21:57)
[2021-02-25] MEDS ORDERED: MAGNESIUM HYDROX 2400MG/30ML ORAL SUSPENSION 30 ML CUP PO PRN (21:57)
[2021-02-25] MEDS ORDERED: IBUPROFEN 400 MG TABLET (FP) PO PRN (21:57)
[2021-02-25] MEDS ORDERED: MAGNESIUM CITRATE 300 ML BOTTLE PO PRN (21:57)
[2021-02-25] MEDS ORDERED: BISMUTH SUBSALICYLATE 524 MG/30 ML UD PO PRN (21:57)
[2021-02-25] MEDS ORDERED: MAG HYDROX/AL HYDROX/SIMETH 30 ML UNIT-DOSE CUP PO PRN (21:57)
[2021-02-25] MEDS ORDERED: hydrOXYzine PAMOATE 25 MG CAPSULE (FP) PO PRN (21:57)
[2021-02-25] MEDS ORDERED: ACETAMINOPHEN 325 MG TABLET (FP) PO PRN ×2 (21:57)
[2021-02-25] MEDS ORDERED: ALBUTEROL SO4 HFA INHALER IH PRN (21:57)
[2021-02-25] MEDS ORDERED: NICOTINE POLACRILEX 2 MG GUM BUC PRN (21:57)
[2021-02-25] MEDS ORDERED: METHADONE HCL 10 MG TABLET (FOR DETOX USE ONLY) PO ONE (21:59)
[2021-02-25] MEDS ORDERED: diazePAM 5 MG TABLET PO PRN (21:59)
[2021-02-25] MEDS ORDERED: cloNIDine HCL 0.1 MG TABLET PO PRN (21:59)
[2021-02-25] MEDS: BUDESONIDE/FORMETEROL FUMARATE 80/4.5 mcg INHALER IH SCH (23:36)
[2021-02-25] MEDS: MELATONIN 5 MG TABLETS PO SCH (23:36)
[2021-02-25] MEDS: THIAMINE HCL 100 MG TABLET (FP) PO SCH (23:36)
[2021-02-25] MEDS: diazePAM 5 MG TABLET PO SCH (23:37)
[2021-02-26] MEDS ORDERED: MASKS NR ONE (05:50)
[2021-02-26] MEDS: diazePAM 5 MG TABLET PO SCH ×4 (05:54→22:31)
[2021-02-26] MEDS ORDERED: METHADONE HCL 10 MG TABLET (FOR DETOX USE ONLY) PO ONE ×2 (09:18→10:00)
[2021-02-26] MEDS ORDERED: METHADONE (DETOX) 10 MG, METHADONE (DETOX) 5 MG PO ONE (10:00)
[2021-02-26] MEDS: PRENATAL VITAMINS W/ FOLIC ACID TABLET (FP) PO SCH (10:34)
[2021-02-26] MEDS: BUDESONIDE/FORMETEROL FUMARATE 80/4.5 mcg INHALER IH SCH ×2 (10:35→22:36)
[2021-02-26 11:03] LABS: ALBUMIN 3.1 g/dl (3.4-5.0); BLOOD UREA NITROGEN 20.2 mg/dL (7-18); CALCIUM 8.1 mg/dL (8.5-10.1)
[2021-02-26 11:06] LABS: CREATININE 0.8 mg/dL (0.55-1.3)
[2021-02-26 11:22] LABS: BILIRUBIN,TOTAL 0.4 mg/dL (0.2-1)
[2021-02-26 11:37] LABS: HEMOGLOBIN 11.9 GM/dL (10.7-15.3); MCH 31.4 pg (25.7-33.7); MEAN CELL VOLUME 92.4 fl (80-96); MEAN PLT VOLUME 7.3 fl (7.5-11.1); PLATELET COUNT 289 K/MM3 (134-434); RBC 3.79 M/mm3 (3.60-5.2); RDW 14.8 % (11.6-15.6); WHITE BLOOD COUNT 5.4 K/mm3 (4.0-10.0)
[2021-02-26 12:04] LABS: HIV INTERPRETATION NEGATIVE (NEGATIVE)
[2021-02-26] MEDS: busPIRone HCL 10 MG TABLET (FP) PO SCH ×2 (12:46→22:30)
[2021-02-26] MEDS: ARIPiprazole 15 MG TABLET PO SCH (12:46)
[2021-02-26] MEDS: CITALOPRAM HYDROBROMIDE 10 MG TABLET PO SCH (12:46)
[2021-02-26] MEDS ORDERED: traZODone HCL 100 MG TABLET (FP) PO SCH (22:00)
[2021-02-26] MEDS: THIAMINE HCL 100 MG TABLET (FP) PO SCH (22:29)
[2021-02-26] MEDS: MELATONIN 5 MG TABLETS PO SCH (22:33)
[2021-02-27] MEDS ORDERED: diazePAM 5 MG TABLET PO SCH (06:00)
[2021-02-27 06:41] VITALS: TEMP 96.9
[2021-02-27 09:10] VITALS: BP 131/83; PULSE 80
[2021-02-27] MEDS: CITALOPRAM HYDROBROMIDE 10 MG TABLET PO SCH (09:48)
[2021-02-27] MEDS: BUDESONIDE/FORMETEROL FUMARATE 80/4.5 mcg INHALER IH SCH (09:48)
[2021-02-27] MEDS: busPIRone HCL 10 MG TABLET (FP) PO SCH (09:48)
[2021-02-27] MEDS: PRENATAL VITAMINS W/ FOLIC ACID TABLET (FP) PO SCH (09:48)
[2021-02-27] MEDS: ARIPiprazole 15 MG TABLET PO SCH (09:48)
[2021-02-27] MEDS ORDERED: METHADONE HCL 10 MG TABLET (FOR DETOX USE ONLY) PO ONE (10:00)
[2021-02-27] MEDS ORDERED: METHADONE (DETOX) 20 MG, METHADONE (DETOX) 5 MG PO ONE (10:00)
[2021-02-27] MEDS ORDERED: METHADONE HCL 5 MG TABLET (FOR DETOX USE ONLY) ONE (10:06)
[2021-02-27] MEDS ORDERED: METHADONE HCL 10 MG TABLET (FOR DETOX USE ONLY) ONE (10:06)
[2021-02-28] MEDS ORDERED: diazePAM 5 MG TABLET PO SCH (06:00)
[2021-02-28] MEDS ORDERED: METHADONE HCL 5 MG TABLET (FOR DETOX USE ONLY) PO ONE (10:00)
[2021-02-28] MEDS ORDERED: METHADONE HCL 10 MG TABLET (FOR DETOX USE ONLY) PO ONE (10:00)
[2021-03-01] MEDS ORDERED: diazePAM 5 MG TABLET PO ONE (06:00)
[2021-03-01] MEDS ORDERED: METHADONE (DETOX) 10 MG, METHADONE (DETOX) 5 MG PO ONE (10:00)
[2021-03-02] MEDS ORDERED: METHADONE HCL 10 MG TABLET (FOR DETOX USE ONLY) PO ONE (10:00)
[2021-03-03] MEDS ORDERED: METHADONE HCL 5 MG TABLET (FOR DETOX USE ONLY) PO ONE (06:00)
== END 2021-02-27 10:17 | disposition left against medical advice (07) | DRG 894 ==
LOC: YASAS 20:25 → Y3N 22:37
PROVIDERS: ADMIT Allergy & Immunology; ATTEND Allergy & Immunology
PROC: HZ2ZZZZ Detoxification Services for Substance Abuse Treatment (ICD-10-PCS; principal; 2021-02-25)
DX: F10.230 Alcohol dependence with withdrawal, uncomplicated (principal); F14.20 Cocaine dependence, uncomplicated; F19.280 Other psychoactive substance dependence with psychoactive substance-induced anxiety disorder; F11.23 Opioid dependence with withdrawal; F12.20 Cannabis dependence, uncomplicated; F17.210 Nicotine dependence, cigarettes, uncomplicated; F19.24 Other psychoactive substance dependence with psychoactive substance-induced mood disorder; F43.10 Post-traumatic stress disorder, unspecified; F25.9 Schizoaffective disorder, unspecified; F31.9 Bipolar disorder, unspecified; D64.9 Anemia, unspecified; I10 Essential (primary) hypertension; J45.909 Unspecified asthma, uncomplicated; M54.5 Low back pain; G89.29 Other chronic pain; Z62.810 Personal history of physical and sexual abuse in childhood; Z91.410 Personal history of adult physical and sexual abuse; Z86.19 Personal history of other infectious and parasitic diseases; Z87.42 Personal history of other diseases of the female genital tract; Z88.8 Allergy status to other drugs, medicaments and biological substances; Z91.013 Allergy to seafood
CPT/HCPCS: 36415; 80053; 81025; 85027; 86780; 87389; 93005; 93010; C9803; J0735; U0003; U0005

== ENCOUNTER 2021-08-13 20:14 | Inpatient (IN) | payer OTHER ==
[2021-08-13 21:17] VITALS: BMI 30.4
[2021-08-13] MEDS ORDERED: MAGNESIUM HYDROX 2400MG/30ML ORAL SUSPENSION 30 ML CUP PO PRN (22:25)
[2021-08-13] MEDS ORDERED: NALOXONE HCL 0.4 MG/ML VIAL IM PRN (22:25)
[2021-08-13] MEDS ORDERED: NALOXONE (NARCAN) HCL 4 MG/0.1 ML SPRAY NS PRN (22:25)
[2021-08-13] MEDS ORDERED: methaDONE HCL 10 MG TABLET (FOR DETOX USE ONLY) PO ONE (22:25)
[2021-08-13] MEDS ORDERED: MAG HYDROX/AL HYDROX/SIMETH 30 ML UNIT-DOSE CUP PO PRN (22:25)
[2021-08-13] MEDS ORDERED: DICYCLOMINE HCL 10 MG CAPSULE PO PRN (22:25)
[2021-08-13] MEDS ORDERED: cloNIDine HCL 0.1 MG TABLET PO PRN (22:25)
[2021-08-13] MEDS ORDERED: MAGNESIUM CITRATE 300 ML BOTTLE PO PRN (22:25)
[2021-08-13] MEDS ORDERED: ACETAMINOPHEN 325 MG TABLET (FP) PO PRN ×2 (22:25)
[2021-08-13] MEDS ORDERED: IBUPROFEN 400 MG TABLET (FP) PO PRN (22:25)
[2021-08-13] MEDS ORDERED: ONDANSETRON *ODT* 4 MG TABLET SL PRN (22:25)
[2021-08-13] MEDS ORDERED: P-EPHED 60MG/TRIPROLIDI 2.5MG TABLET PO PRN (22:25)
[2021-08-13] MEDS ORDERED: BISMUTH SUBSALICYLATE 524 MG/30 ML PO PRN (22:25)
[2021-08-13] MEDS ORDERED: MENTHOL/PHENOL 1 EACH UD MM PRN (22:25)
[2021-08-14] MEDS ORDERED: methaDONE HCL 10 MG TABLET (FOR DETOX USE ONLY) ONE ×2 (02:37→09:58)
[2021-08-14] MEDS ORDERED: diazePAM 5 MG TABLET ONE ×2 (05:37→09:58)
[2021-08-14] MEDS: diazePAM 5 MG TABLET PO SCH ×4 (05:50→22:18)
[2021-08-14] MEDS: diazePAM 5 MG TABLET PO PRN (10:03)
[2021-08-14 10:15] LABS: HEMATOCRIT 37.4 % (32.4-45.2); HEMOGLOBIN 12.5 GM/dL (10.7-15.3); MCH 30.4 pg (25.7-33.7); MCHC 33.5 g/dl (32.0-36.0); MEAN CELL VOLUME 90.5 fl (80-96); MEAN PLT VOLUME 6.9 fl (7.5-11.1); PLATELET COUNT 259 10^3/uL (134-434); RBC 4.13 M/mm3 (3.60-5.2); RDW 13.2 % (11.6-15.6); WHITE BLOOD COUNT 5.2 K/mm3 (4.0-10.0)
[2021-08-14 10:29] LABS: BILIRUBIN,TOTAL 0.2 mg/dL (0.2-1); TOT PROT 6.6 g/dl (6.4-8.2)
[2021-08-14 10:32] LABS: ALBUMIN 2.8 g/dl (3.4-5.0); BLOOD UREA NITROGEN 10.4 mg/dL (7-18); CALCIUM 7.7 mg/dL (8.5-10.1)
[2021-08-14 10:35] LABS: CREATININE 0.8 mg/dL (0.55-1.3)
[2021-08-14 11:15] LABS: HIV INTERPRETATION NEGATIVE (NEGATIVE)
[2021-08-14] MEDS: PRENATAL VITAMINS W/ FOLIC ACID TABLET (FP) PO SCH (11:17)
[2021-08-14] MEDS: NICOTINE 14 MG/24 HOURS TOPICAL PATCH TD SCH (11:17)
[2021-08-14] MEDS ORDERED: ALBUTEROL SO4 HFA INHALER IH PRN (14:30)
[2021-08-14] MEDS: NICOTINE 10 MG CARTRIDGE (INHALER) IH PRN (14:35)
[2021-08-14] MEDS: COLLOIDAL OATMEAL 1 BAR EACH TP PRN (16:19)
[2021-08-14] MEDS: guaiFENesin 200 MG/10 ML 10 ML UNIT-DOSE CUPS PO PRN (17:11)
[2021-08-14] MEDS: risperiDONE 1 MG TABLET PO SCH (22:17)
[2021-08-14] MEDS: DIVALPROEX SODIUM 500 MG TABLET E.C. PO SCH (22:17)
[2021-08-14] MEDS: MELATONIN 5 MG TABLETS PO SCH (22:17)
[2021-08-14] MEDS: traZODone HCL 50 MG TABLET (FP) PO SCH (22:17)
[2021-08-14] MEDS: THIAMINE HCL 100 MG TABLET (FP) PO SCH (22:17)
[2021-08-14] MEDS: BUDESONIDE/FORMETEROL FUMARATE 80/4.5 mcg INHALER IH SCH (22:51)
[2021-08-15] MEDS: diazePAM 5 MG TABLET PO SCH ×2 (06:17→17:19)
[2021-08-15] MEDS ORDERED: methaDONE HCL 10 MG TABLET (FOR DETOX USE ONLY) PO ONE (10:00)
[2021-08-15] MEDS: PRENATAL VITAMINS W/ FOLIC ACID TABLET (FP) PO SCH (10:26)
[2021-08-15] MEDS: BUDESONIDE/FORMETEROL FUMARATE 80/4.5 mcg INHALER IH SCH ×2 (10:26→22:25)
[2021-08-15] MEDS: NICOTINE 14 MG/24 HOURS TOPICAL PATCH TD SCH (10:26)
[2021-08-15] MEDS: risperiDONE 1 MG TABLET PO SCH ×2 (10:26→22:25)
[2021-08-15] MEDS: DIVALPROEX SODIUM 500 MG TABLET E.C. PO SCH ×2 (10:26→22:25)
[2021-08-15] MEDS: NICOTINE 10 MG CARTRIDGE (INHALER) IH PRN (13:03)
[2021-08-15] MEDS: guaiFENesin 200 MG/10 ML 10 ML UNIT-DOSE CUPS PO PRN (17:19)
[2021-08-15] MEDS: traZODone HCL 50 MG TABLET (FP) PO SCH (22:25)
[2021-08-15] MEDS: THIAMINE HCL 100 MG TABLET (FP) PO SCH (22:25)
[2021-08-15] MEDS: MELATONIN 5 MG TABLETS PO SCH (22:25)
[2021-08-16] MEDS ORDERED: diazePAM 5 MG TABLET PO ONE (06:00)
[2021-08-16] MEDS ORDERED: methaDONE HCL 10 MG TABLET (FOR DETOX USE ONLY) ONE (09:56)
[2021-08-16] MEDS: NICOTINE 14 MG/24 HOURS TOPICAL PATCH TD SCH (10:31)
[2021-08-16] MEDS: PRENATAL VITAMINS W/ FOLIC ACID TABLET (FP) PO SCH (10:32)
[2021-08-16] MEDS: BUDESONIDE/FORMETEROL FUMARATE 80/4.5 mcg INHALER IH SCH ×2 (10:32→22:47)
[2021-08-16] MEDS: risperiDONE 1 MG TABLET PO SCH ×2 (10:32→22:47)
[2021-08-16] MEDS: DIVALPROEX SODIUM 500 MG TABLET E.C. PO SCH ×2 (10:33→22:47)
[2021-08-16] MEDS: NICOTINE 10 MG CARTRIDGE (INHALER) IH PRN (10:33)
[2021-08-16] MEDS: diazePAM 5 MG TABLET PO PRN (10:33)
[2021-08-16] MEDS: COLLOIDAL OATMEAL 1 BAR EACH TP PRN (13:09)
[2021-08-16] MEDS: AMMONIUM LACTATE 12% LOTION 225 GM BOTTLE TP PRN (13:14)
[2021-08-16] MEDS: MELATONIN 5 MG TABLETS PO SCH (22:47)
[2021-08-16] MEDS: traZODone HCL 50 MG TABLET (FP) PO SCH (22:47)
[2021-08-16] MEDS: THIAMINE HCL 100 MG TABLET (FP) PO SCH (22:47)
[2021-08-17] MEDS ORDERED: methaDONE HCL 10 MG TABLET (FOR DETOX USE ONLY) PO ONE (10:00)
[2021-08-17] MEDS: PRENATAL VITAMINS W/ FOLIC ACID TABLET (FP) PO SCH (10:19)
[2021-08-17] MEDS: DIVALPROEX SODIUM 500 MG TABLET E.C. PO SCH ×2 (10:19→22:24)
[2021-08-17] MEDS: NICOTINE 14 MG/24 HOURS TOPICAL PATCH TD SCH (10:19)
[2021-08-17] MEDS: risperiDONE 1 MG TABLET PO SCH ×2 (10:19→22:24)
[2021-08-17] MEDS: BUDESONIDE/FORMETEROL FUMARATE 80/4.5 mcg INHALER IH SCH ×2 (10:20→22:24)
[2021-08-17] MEDS: NICOTINE 10 MG CARTRIDGE (INHALER) IH PRN ×2 (13:22→17:41)
[2021-08-17] MEDS: METHOCARBAMOL 500 MG TABLET PO PRN (17:41)
[2021-08-17] MEDS: MELATONIN 5 MG TABLETS PO SCH (22:24)
[2021-08-17] MEDS: THIAMINE HCL 100 MG TABLET (FP) PO SCH (22:24)
[2021-08-17] MEDS: traZODone HCL 50 MG TABLET (FP) PO SCH (22:24)
[2021-08-18] MEDS: NICOTINE 14 MG/24 HOURS TOPICAL PATCH TD SCH (09:07)
[2021-08-18] MEDS: NICOTINE 10 MG CARTRIDGE (INHALER) IH PRN ×3 (09:22→19:07)
[2021-08-18] MEDS: BUDESONIDE/FORMETEROL FUMARATE 80/4.5 mcg INHALER IH SCH ×2 (10:09→22:27)
[2021-08-18] MEDS: risperiDONE 1 MG TABLET PO SCH ×2 (10:09→22:26)
[2021-08-18] MEDS: PRENATAL VITAMINS W/ FOLIC ACID TABLET (FP) PO SCH (10:09)
[2021-08-18] MEDS: DIVALPROEX SODIUM 500 MG TABLET E.C. PO SCH ×2 (10:09→22:26)
[2021-08-18] MEDS: COLLOIDAL OATMEAL 1 BAR EACH TP PRN (17:58)
[2021-08-18] MEDS: AMMONIUM LACTATE 12% LOTION 225 GM BOTTLE TP PRN (18:27)
[2021-08-18] MEDS: METHOCARBAMOL 500 MG TABLET PO PRN (18:27)
[2021-08-18] MEDS: THIAMINE HCL 100 MG TABLET (FP) PO SCH (22:26)
[2021-08-18] MEDS: traZODone HCL 50 MG TABLET (FP) PO SCH (22:26)
[2021-08-18] MEDS: MELATONIN 5 MG TABLETS PO SCH (22:27)
[2021-08-19] MEDS: risperiDONE 1 MG TABLET PO SCH (10:56)
[2021-08-19] MEDS: PRENATAL VITAMINS W/ FOLIC ACID TABLET (FP) PO SCH (10:56)
[2021-08-19] MEDS: DIVALPROEX SODIUM 500 MG TABLET E.C. PO SCH (10:56)
[2021-08-19] MEDS: BUDESONIDE/FORMETEROL FUMARATE 80/4.5 mcg INHALER IH SCH (10:56)
[2021-08-19] MEDS: NICOTINE 10 MG CARTRIDGE (INHALER) IH PRN (10:57)
[2021-08-19] MEDS: NICOTINE 14 MG/24 HOURS TOPICAL PATCH TD SCH (11:10)
[2021-08-19 13:25] VITALS: BP 111/67; PULSE 78; TEMP 96.9
== END 2021-08-19 13:17 | disposition other institution (70) | DRG 897 ==
LOC: YASAS 20:14 → Y3N 08-14 11:59
PROVIDERS: ADMIT Allergy & Immunology; ATTEND Allergy & Immunology
PROC: HZ2ZZZZ Detoxification Services for Substance Abuse Treatment (ICD-10-PCS; principal; 2021-08-14)
DX: F11.23 Opioid dependence with withdrawal (principal); F14.20 Cocaine dependence, uncomplicated; F19.280 Other psychoactive substance dependence with psychoactive substance-induced anxiety disorder; F19.282 Other psychoactive substance dependence with psychoactive substance-induced sleep disorder; F10.230 Alcohol dependence with withdrawal, uncomplicated; F12.20 Cannabis dependence, uncomplicated; F17.210 Nicotine dependence, cigarettes, uncomplicated; F25.9 Schizoaffective disorder, unspecified; F19.24 Other psychoactive substance dependence with psychoactive substance-induced mood disorder; I10 Essential (primary) hypertension; J45.909 Unspecified asthma, uncomplicated; G47.00 Insomnia, unspecified; Z88.5 Allergy status to narcotic agent; Z91.013 Allergy to seafood; Z62.810 Personal history of physical and sexual abuse in childhood; Z91.19 Patient's noncompliance with other medical treatment and regimen; Z56.0 Unemployment, unspecified; Z59.00 Homelessness unspecified
CPT/HCPCS: 36415; 80053; 80164; 81025; 85027; 86780; 87389; C9803; J2794; U0003; U0005

== ENCOUNTER 2021-08-19 14:04 | Inpatient (IN) | payer OTHER ==
[2021-08-19] MEDS ORDERED: MAG HYDROX/AL HYDROX/SIMETH 30 ML UNIT-DOSE CUP PO PRN (15:38)
[2021-08-19] MEDS ORDERED: MAGNESIUM HYDROX 2400MG/30ML ORAL SUSPENSION 30 ML CUP PO PRN (15:38)
[2021-08-19] MEDS ORDERED: P-EPHED 60MG/TRIPROLIDI 2.5MG TABLET PO PRN (15:38)
[2021-08-19] MEDS ORDERED: MENTHOL/PHENOL 1 EACH UD MM PRN (15:38)
[2021-08-19] MEDS ORDERED: MAGNESIUM CITRATE 300 ML BOTTLE PO PRN (15:38)
[2021-08-19] MEDS ORDERED: guaiFENesin 200 MG/10 ML 10 ML UNIT-DOSE CUPS PO PRN (15:38)
[2021-08-19] MEDS ORDERED: LOPERAMIDE HCL 2 MG CAPSULE PO PRN (15:38)
[2021-08-19] MEDS: NICOTINE 10 MG CARTRIDGE (INHALER) IH PRN ×2 (17:23→22:17)
[2021-08-19] MEDS: NICOTINE POLACRILEX 2 MG GUM BUC PRN (17:25)
[2021-08-19] MEDS ORDERED: DIVALPROEX SODIUM 500 MG TABLET E.C. PO SCH (22:00)
[2021-08-19] MEDS ORDERED: risperiDONE 1 MG TABLET PO SCH (22:00)
[2021-08-19] MEDS: traZODone HCL 50 MG TABLET (FP) PO SCH (22:17)
[2021-08-19] MEDS: MELATONIN 5 MG TABLETS PO SCH (22:17)
[2021-08-19] MEDS: BUDESONIDE/FORMETEROL FUMARATE 80/4.5 mcg INHALER IH SCH (22:18)
[2021-08-19] MEDS: THIAMINE HCL 100 MG TABLET (FP) PO SCH (22:18)
[2021-08-20] MEDS: PRENATAL VITAMINS W/ FOLIC ACID TABLET (FP) PO SCH (10:15)
[2021-08-20] MEDS: NICOTINE 21 MG/24 HOURS TOPICAL PATCH TD SCH (10:15)
[2021-08-20] MEDS: NICOTINE POLACRILEX 2 MG GUM BUC PRN ×3 (10:15→21:13)
[2021-08-20] MEDS: DIVALPROEX SODIUM 250 MG TABLET E.C. PO SCH ×2 (10:18→21:11)
[2021-08-20] MEDS: BUDESONIDE/FORMETEROL FUMARATE 80/4.5 mcg INHALER IH SCH ×2 (10:18→21:47)
[2021-08-20] MEDS: risperiDONE 0.5 MG TABLET PO SCH ×2 (10:19→21:53)
[2021-08-20] MEDS: COLLOIDAL OATMEAL 1 BAR EACH TP PRN (10:20)
[2021-08-20] MEDS ORDERED: FLU VACC QS2021-22(6MOS UP)/PF 60 MCG/0.5 ML SYRINGE IM ONE (12:00)
[2021-08-20] MEDS: NICOTINE 10 MG CARTRIDGE (INHALER) IH PRN (12:09)
[2021-08-20] MEDS: THIAMINE HCL 100 MG TABLET (FP) PO SCH (21:10)
[2021-08-20] MEDS: MELATONIN 5 MG TABLETS PO SCH (21:10)
[2021-08-20] MEDS: traZODone HCL 50 MG TABLET (FP) PO SCH (21:11)
[2021-08-21] MEDS: NICOTINE 21 MG/24 HOURS TOPICAL PATCH TD SCH (10:27)
[2021-08-21] MEDS: hydrOXYzine PAMOATE 25 MG CAPSULE (FP) PO PRN ×3 (10:28→21:26)
[2021-08-21] MEDS: DIVALPROEX SODIUM 250 MG TABLET E.C. PO SCH ×2 (10:28→21:28)
[2021-08-21] MEDS: PRENATAL VITAMINS W/ FOLIC ACID TABLET (FP) PO SCH (10:28)
[2021-08-21] MEDS: BUDESONIDE/FORMETEROL FUMARATE 80/4.5 mcg INHALER IH SCH ×2 (10:31→21:28)
[2021-08-21] MEDS: risperiDONE 0.5 MG TABLET PO SCH (10:32)
[2021-08-21] MEDS: BUPRENORPHINE/NALOXONE 2 MG/0.5 MG FILM PACKET SL SCH (10:33)
[2021-08-21] MEDS: NICOTINE 10 MG CARTRIDGE (INHALER) IH PRN ×3 (10:45→19:04)
[2021-08-21] MEDS: NICOTINE POLACRILEX 2 MG GUM BUC PRN ×3 (11:52→21:29)
[2021-08-21] MEDS ORDERED: HALOPERIDOL 5 MG TABLET PO ONE (14:15)
[2021-08-21] MEDS ORDERED: BENZTROPINE MESYLATE 1 MG TABLET PO ONE (14:16)
[2021-08-21] MEDS: THIAMINE HCL 100 MG TABLET (FP) PO SCH (21:26)
[2021-08-21] MEDS: traZODone HCL 50 MG TABLET (FP) PO SCH (21:27)
[2021-08-21] MEDS: MELATONIN 5 MG TABLETS PO SCH (21:27)
[2021-08-21] MEDS: risperiDONE 1 MG TABLET PO SCH (21:28)
[2021-08-22] MEDS: DIVALPROEX SODIUM 250 MG TABLET E.C. PO SCH ×2 (10:13→21:27)
[2021-08-22] MEDS: PRENATAL VITAMINS W/ FOLIC ACID TABLET (FP) PO SCH (10:13)
[2021-08-22] MEDS: BUPRENORPHINE/NALOXONE 2 MG/0.5 MG FILM PACKET SL SCH (10:13)
[2021-08-22] MEDS: BUDESONIDE/FORMETEROL FUMARATE 80/4.5 mcg INHALER IH SCH ×2 (10:13→21:27)
[2021-08-22] MEDS: risperiDONE 1 MG TABLET PO SCH ×2 (10:13→21:27)
[2021-08-22] MEDS: NICOTINE POLACRILEX 2 MG GUM BUC PRN ×3 (10:14→22:18)
[2021-08-22] MEDS: NICOTINE 21 MG/24 HOURS TOPICAL PATCH TD SCH (10:14)
[2021-08-22] MEDS: NICOTINE 10 MG CARTRIDGE (INHALER) IH PRN ×3 (10:57→17:19)
[2021-08-22] MEDS: BUPRENORPHINE/NALOXONE 4 MG/1 MG FILM PACKET SL SCH (18:00)
[2021-08-22] MEDS: THIAMINE HCL 100 MG TABLET (FP) PO SCH (21:27)
[2021-08-22] MEDS: MELATONIN 5 MG TABLETS PO SCH (21:27)
[2021-08-22] MEDS: traZODone HCL 50 MG TABLET (FP) PO SCH (21:27)
[2021-08-22] MEDS: hydrOXYzine PAMOATE 25 MG CAPSULE (FP) PO PRN (21:27)
[2021-08-23] MEDS: ACETAMINOPHEN 325 MG TABLET (FP) PO PRN (06:00)
[2021-08-23] MEDS: NICOTINE POLACRILEX 2 MG GUM BUC PRN ×4 (08:19→18:09)
[2021-08-23] MEDS: DIVALPROEX SODIUM 250 MG TABLET E.C. PO SCH ×2 (10:17→21:53)
[2021-08-23] MEDS: PRENATAL VITAMINS W/ FOLIC ACID TABLET (FP) PO SCH (10:17)
[2021-08-23] MEDS: BUDESONIDE/FORMETEROL FUMARATE 80/4.5 mcg INHALER IH SCH ×2 (10:17→21:53)
[2021-08-23] MEDS: NICOTINE 21 MG/24 HOURS TOPICAL PATCH TD SCH (10:17)
[2021-08-23] MEDS: risperiDONE 1 MG TABLET PO SCH ×2 (10:18→21:53)
[2021-08-23] MEDS: BUPRENORPHINE/NALOXONE 4 MG/1 MG FILM PACKET SL SCH ×2 (10:18→18:06)
[2021-08-23] MEDS: hydrOXYzine PAMOATE 25 MG CAPSULE (FP) PO PRN ×2 (10:19→17:14)
[2021-08-23] MEDS: NICOTINE 10 MG CARTRIDGE (INHALER) IH PRN ×3 (12:42→21:54)
[2021-08-23] MEDS: traZODone HCL 50 MG TABLET (FP) PO SCH (21:53)
[2021-08-23] MEDS: THIAMINE HCL 100 MG TABLET (FP) PO SCH (21:53)
[2021-08-23] MEDS: MELATONIN 5 MG TABLETS PO SCH (21:53)
[2021-08-24] MEDS: DIVALPROEX SODIUM 250 MG TABLET E.C. PO SCH ×2 (10:27→21:45)
[2021-08-24] MEDS: risperiDONE 1 MG TABLET PO SCH ×2 (10:27→21:45)
[2021-08-24] MEDS: NICOTINE 10 MG CARTRIDGE (INHALER) IH PRN ×3 (10:27→20:06)
[2021-08-24] MEDS: PRENATAL VITAMINS W/ FOLIC ACID TABLET (FP) PO SCH (10:27)
[2021-08-24] MEDS: NICOTINE POLACRILEX 2 MG GUM BUC PRN ×4 (10:28→22:09)
[2021-08-24] MEDS: BUPRENORPHINE/NALOXONE 4 MG/1 MG FILM PACKET SL SCH ×2 (10:28→18:18)
[2021-08-24] MEDS: BUDESONIDE/FORMETEROL FUMARATE 80/4.5 mcg INHALER IH SCH ×2 (10:28→21:45)
[2021-08-24] MEDS: NICOTINE 21 MG/24 HOURS TOPICAL PATCH TD SCH (10:28)
[2021-08-24] MEDS: hydrOXYzine PAMOATE 25 MG CAPSULE (FP) PO PRN (13:40)
[2021-08-24] MEDS: THIAMINE HCL 100 MG TABLET (FP) PO SCH (21:45)
[2021-08-24] MEDS: MELATONIN 5 MG TABLETS PO SCH (21:45)
[2021-08-24] MEDS: traZODone HCL 50 MG TABLET (FP) PO SCH (21:45)
[2021-08-25] MEDS: BUDESONIDE/FORMETEROL FUMARATE 80/4.5 mcg INHALER IH SCH ×2 (09:56→21:29)
[2021-08-25] MEDS: NICOTINE 21 MG/24 HOURS TOPICAL PATCH TD SCH (09:57)
[2021-08-25] MEDS: NICOTINE POLACRILEX 2 MG GUM BUC PRN ×3 (09:57→17:27)
[2021-08-25] MEDS: BUPRENORPHINE/NALOXONE 4 MG/1 MG FILM PACKET SL SCH ×2 (09:57→17:22)
[2021-08-25] MEDS: PRENATAL VITAMINS W/ FOLIC ACID TABLET (FP) PO SCH (09:57)
[2021-08-25] MEDS: DIVALPROEX SODIUM 250 MG TABLET E.C. PO SCH ×2 (09:57→21:29)
[2021-08-25] MEDS: risperiDONE 1 MG TABLET PO SCH ×2 (09:57→21:29)
[2021-08-25] MEDS: NICOTINE 10 MG CARTRIDGE (INHALER) IH PRN ×3 (13:22→21:31)
[2021-08-25] MEDS: COLLOIDAL OATMEAL 1 BAR EACH TP PRN (13:22)
[2021-08-25] MEDS: hydrOXYzine PAMOATE 25 MG CAPSULE (FP) PO PRN (21:29)
[2021-08-25] MEDS: traZODone HCL 50 MG TABLET (FP) PO SCH (21:29)
[2021-08-25] MEDS: MELATONIN 5 MG TABLETS PO SCH (21:29)
[2021-08-25] MEDS: THIAMINE HCL 100 MG TABLET (FP) PO SCH (21:29)
[2021-08-26] MEDS: PRENATAL VITAMINS W/ FOLIC ACID TABLET (FP) PO SCH (09:46)
[2021-08-26] MEDS: risperiDONE 1 MG TABLET PO SCH ×2 (09:47→21:58)
[2021-08-26] MEDS: DIVALPROEX SODIUM 250 MG TABLET E.C. PO SCH ×2 (09:47→21:58)
[2021-08-26] MEDS: BUDESONIDE/FORMETEROL FUMARATE 80/4.5 mcg INHALER IH SCH ×2 (09:47→21:58)
[2021-08-26] MEDS: BUPRENORPHINE/NALOXONE 4 MG/1 MG FILM PACKET SL SCH ×2 (09:47→18:08)
[2021-08-26] MEDS: NICOTINE POLACRILEX 2 MG GUM BUC PRN ×2 (09:48→18:55)
[2021-08-26] MEDS: NICOTINE 21 MG/24 HOURS TOPICAL PATCH TD SCH (09:48)
[2021-08-26] MEDS ORDERED: PT OWN MED DRAWER 7, Y5N ONE (10:20)
[2021-08-26] MEDS: NICOTINE 10 MG CARTRIDGE (INHALER) IH PRN (16:55)
[2021-08-26] MEDS: hydrOXYzine PAMOATE 25 MG CAPSULE (FP) PO PRN (18:09)
[2021-08-26] MEDS: MELATONIN 5 MG TABLETS PO SCH (21:58)
[2021-08-26] MEDS: traZODone HCL 50 MG TABLET (FP) PO SCH (21:58)
[2021-08-26] MEDS: THIAMINE HCL 100 MG TABLET (FP) PO SCH (21:58)
[2021-08-27] MEDS: NICOTINE 21 MG/24 HOURS TOPICAL PATCH TD SCH (10:13)
[2021-08-27] MEDS: BUPRENORPHINE/NALOXONE 4 MG/1 MG FILM PACKET SL SCH ×2 (10:13→18:02)
[2021-08-27] MEDS: NICOTINE POLACRILEX 2 MG GUM BUC PRN ×3 (10:13→21:37)
[2021-08-27] MEDS: hydrOXYzine PAMOATE 25 MG CAPSULE (FP) PO PRN ×2 (10:13→21:36)
[2021-08-27] MEDS: DIVALPROEX SODIUM 250 MG TABLET E.C. PO SCH ×2 (10:13→21:36)
[2021-08-27] MEDS: BUDESONIDE/FORMETEROL FUMARATE 80/4.5 mcg INHALER IH SCH ×2 (10:13→21:36)
[2021-08-27] MEDS: risperiDONE 1 MG TABLET PO SCH ×2 (10:13→21:36)
[2021-08-27] MEDS: PRENATAL VITAMINS W/ FOLIC ACID TABLET (FP) PO SCH (10:13)
[2021-08-27] MEDS: NICOTINE 10 MG CARTRIDGE (INHALER) IH PRN ×2 (10:14→18:53)
[2021-08-27] MEDS: THIAMINE HCL 100 MG TABLET (FP) PO SCH (21:35)
[2021-08-27] MEDS: MELATONIN 5 MG TABLETS PO SCH (21:36)
[2021-08-27] MEDS: traZODone HCL 50 MG TABLET (FP) PO SCH (21:37)
[2021-08-27] MEDS: IBUPROFEN 400 MG TABLET (FP) PO PRN (22:22)
[2021-08-28] MEDS: risperiDONE 1 MG TABLET PO SCH ×2 (09:56→21:24)
[2021-08-28] MEDS: PRENATAL VITAMINS W/ FOLIC ACID TABLET (FP) PO SCH (09:56)
[2021-08-28] MEDS: DIVALPROEX SODIUM 250 MG TABLET E.C. PO SCH ×2 (09:56→21:25)
[2021-08-28] MEDS: NICOTINE POLACRILEX 2 MG GUM BUC PRN ×3 (09:56→17:21)
[2021-08-28] MEDS: NICOTINE 21 MG/24 HOURS TOPICAL PATCH TD SCH (09:56)
[2021-08-28] MEDS: BUPRENORPHINE/NALOXONE 4 MG/1 MG FILM PACKET SL SCH ×2 (09:56→17:55)
[2021-08-28] MEDS: BUDESONIDE/FORMETEROL FUMARATE 80/4.5 mcg INHALER IH SCH ×2 (09:58→21:24)
[2021-08-28] MEDS: NICOTINE 10 MG CARTRIDGE (INHALER) IH PRN ×3 (12:47→21:24)
[2021-08-28] MEDS: AMMONIUM LACTATE 12% LOTION 225 GM BOTTLE TP SCH (21:24)
[2021-08-28] MEDS: THIAMINE HCL 100 MG TABLET (FP) PO SCH (21:25)
[2021-08-28] MEDS: traZODone HCL 50 MG TABLET (FP) PO SCH (21:25)
[2021-08-28] MEDS: MELATONIN 5 MG TABLETS PO SCH (21:25)
[2021-08-29] MEDS: IBUPROFEN 400 MG TABLET (FP) PO PRN ×2 (03:47→17:45)
[2021-08-29] MEDS: PRENATAL VITAMINS W/ FOLIC ACID TABLET (FP) PO SCH (10:17)
[2021-08-29] MEDS: BUPRENORPHINE/NALOXONE 4 MG/1 MG FILM PACKET SL SCH ×2 (10:18→17:46)
[2021-08-29] MEDS: risperiDONE 1 MG TABLET PO SCH ×2 (10:18→21:45)
[2021-08-29] MEDS: DIVALPROEX SODIUM 250 MG TABLET E.C. PO SCH ×2 (10:18→21:45)
[2021-08-29] MEDS: BUDESONIDE/FORMETEROL FUMARATE 80/4.5 mcg INHALER IH SCH ×2 (10:18→21:46)
[2021-08-29] MEDS: NICOTINE 10 MG CARTRIDGE (INHALER) IH PRN ×3 (10:19→21:45)
[2021-08-29] MEDS: NICOTINE POLACRILEX 2 MG GUM BUC PRN ×3 (10:19→17:47)
[2021-08-29] MEDS: NICOTINE 21 MG/24 HOURS TOPICAL PATCH TD SCH (10:19)
[2021-08-29] MEDS: AMMONIUM LACTATE 12% LOTION 225 GM BOTTLE TP SCH ×2 (11:10→21:46)
[2021-08-29] MEDS ORDERED: PT OWN MED DRAWER 7, Y5N ONE (13:11)
[2021-08-29] MEDS: ALBUTEROL SO4 HFA INHALER IH PRN ×3 (13:13→21:45)
[2021-08-29] MEDS: hydrOXYzine PAMOATE 25 MG CAPSULE (FP) PO PRN (21:45)
[2021-08-29] MEDS: MELATONIN 5 MG TABLETS PO SCH (21:46)
[2021-08-29] MEDS: THIAMINE HCL 100 MG TABLET (FP) PO SCH (21:46)
[2021-08-29] MEDS: traZODone HCL 50 MG TABLET (FP) PO SCH (21:46)
[2021-08-30] MEDS: BUPRENORPHINE/NALOXONE 4 MG/1 MG FILM PACKET SL SCH ×2 (10:09→17:41)
[2021-08-30] MEDS: BUDESONIDE/FORMETEROL FUMARATE 80/4.5 mcg INHALER IH SCH ×2 (10:09→21:11)
[2021-08-30] MEDS: PRENATAL VITAMINS W/ FOLIC ACID TABLET (FP) PO SCH (10:09)
[2021-08-30] MEDS: DIVALPROEX SODIUM 250 MG TABLET E.C. PO SCH ×2 (10:10→21:11)
[2021-08-30] MEDS: NICOTINE 21 MG/24 HOURS TOPICAL PATCH TD SCH (10:10)
[2021-08-30] MEDS: risperiDONE 1 MG TABLET PO SCH ×2 (10:10→21:11)
[2021-08-30] MEDS: AMMONIUM LACTATE 12% LOTION 225 GM BOTTLE TP SCH ×2 (10:11→21:11)
[2021-08-30] MEDS: NICOTINE POLACRILEX 2 MG GUM BUC PRN ×3 (10:11→21:13)
[2021-08-30] MEDS: NICOTINE 10 MG CARTRIDGE (INHALER) IH PRN (17:41)
[2021-08-30] MEDS: ALBUTEROL SO4 HFA INHALER IH PRN (21:11)
[2021-08-30] MEDS: traZODone HCL 50 MG TABLET (FP) PO SCH (21:11)
[2021-08-30] MEDS: MELATONIN 5 MG TABLETS PO SCH (21:12)
[2021-08-30] MEDS: THIAMINE HCL 100 MG TABLET (FP) PO SCH (21:12)
[2021-08-31] MEDS: IBUPROFEN 400 MG TABLET (FP) PO PRN (03:59)
[2021-08-31] MEDS: NICOTINE 21 MG/24 HOURS TOPICAL PATCH TD SCH (10:27)
[2021-08-31] MEDS: PRENATAL VITAMINS W/ FOLIC ACID TABLET (FP) PO SCH (10:27)
[2021-08-31] MEDS: risperiDONE 1 MG TABLET PO SCH ×2 (10:28→21:45)
[2021-08-31] MEDS: BUDESONIDE/FORMETEROL FUMARATE 80/4.5 mcg INHALER IH SCH ×2 (10:28→21:44)
[2021-08-31] MEDS: ALBUTEROL SO4 HFA INHALER IH PRN (10:28)
[2021-08-31] MEDS: hydrOXYzine PAMOATE 25 MG CAPSULE (FP) PO PRN ×2 (10:28→21:45)
[2021-08-31] MEDS: AMMONIUM LACTATE 12% LOTION 225 GM BOTTLE TP SCH ×2 (10:29→21:49)
[2021-08-31] MEDS: DIVALPROEX SODIUM 250 MG TABLET E.C. PO SCH ×2 (10:29→21:45)
[2021-08-31] MEDS: BUPRENORPHINE/NALOXONE 4 MG/1 MG FILM PACKET SL SCH ×2 (10:29→18:08)
[2021-08-31] MEDS: NICOTINE POLACRILEX 2 MG GUM BUC PRN ×2 (12:55→18:09)
[2021-08-31] MEDS: NICOTINE 10 MG CARTRIDGE (INHALER) IH PRN ×2 (12:55→21:46)
[2021-08-31] MEDS: COLLOIDAL OATMEAL 1 BAR EACH TP PRN (18:08)
[2021-08-31] MEDS: MELATONIN 5 MG TABLETS PO SCH (21:44)
[2021-08-31] MEDS: traZODone HCL 50 MG TABLET (FP) PO SCH (21:45)
[2021-08-31] MEDS: THIAMINE HCL 100 MG TABLET (FP) PO SCH (21:45)
[2021-09-01] MEDS: BUPRENORPHINE/NALOXONE 4 MG/1 MG FILM PACKET SL SCH ×2 (10:11→18:12)
[2021-09-01] MEDS: PRENATAL VITAMINS W/ FOLIC ACID TABLET (FP) PO SCH (10:11)
[2021-09-01] MEDS: BUDESONIDE/FORMETEROL FUMARATE 80/4.5 mcg INHALER IH SCH ×2 (10:11→21:15)
[2021-09-01] MEDS: risperiDONE 1 MG TABLET PO SCH ×2 (10:12→21:13)
[2021-09-01] MEDS: DIVALPROEX SODIUM 250 MG TABLET E.C. PO SCH ×2 (10:12→21:13)
[2021-09-01] MEDS: hydrOXYzine PAMOATE 25 MG CAPSULE (FP) PO PRN ×2 (10:12→21:13)
[2021-09-01] MEDS: NICOTINE 21 MG/24 HOURS TOPICAL PATCH TD SCH (10:12)
[2021-09-01] MEDS: NICOTINE POLACRILEX 2 MG GUM BUC PRN ×3 (10:14→18:13)
[2021-09-01] MEDS: AMMONIUM LACTATE 12% LOTION 225 GM BOTTLE TP SCH ×2 (10:28→21:16)
[2021-09-01] MEDS: MELATONIN 5 MG TABLETS PO SCH (21:13)
[2021-09-01] MEDS: traZODone HCL 50 MG TABLET (FP) PO SCH (21:13)
[2021-09-01] MEDS: THIAMINE HCL 100 MG TABLET (FP) PO SCH (21:13)
[2021-09-02] MEDS: IBUPROFEN 400 MG TABLET (FP) PO PRN ×2 (06:28→12:27)
[2021-09-02] MEDS: PRENATAL VITAMINS W/ FOLIC ACID TABLET (FP) PO SCH (10:23)
[2021-09-02] MEDS: DIVALPROEX SODIUM 250 MG TABLET E.C. PO SCH ×2 (10:24→21:08)
[2021-09-02] MEDS: BUDESONIDE/FORMETEROL FUMARATE 80/4.5 mcg INHALER IH SCH ×2 (10:24→21:07)
[2021-09-02] MEDS: risperiDONE 1 MG TABLET PO SCH ×2 (10:24→21:08)
[2021-09-02] MEDS: AMMONIUM LACTATE 12% LOTION 225 GM BOTTLE TP SCH ×2 (10:25→21:09)
[2021-09-02] MEDS: BUPRENORPHINE/NALOXONE 4 MG/1 MG FILM PACKET SL SCH ×2 (10:26→17:23)
[2021-09-02] MEDS: NICOTINE 21 MG/24 HOURS TOPICAL PATCH TD SCH (10:26)
[2021-09-02] MEDS: NICOTINE POLACRILEX 2 MG GUM BUC PRN ×2 (10:27→17:25)
[2021-09-02] MEDS: hydrOXYzine PAMOATE 25 MG CAPSULE (FP) PO PRN (12:27)
[2021-09-02] MEDS: NICOTINE 10 MG CARTRIDGE (INHALER) IH PRN ×2 (12:29→17:23)
[2021-09-02] MEDS: THIAMINE HCL 100 MG TABLET (FP) PO SCH (21:08)
[2021-09-02] MEDS: MELATONIN 5 MG TABLETS PO SCH (21:08)
[2021-09-02] MEDS: traZODone HCL 50 MG TABLET (FP) PO SCH (21:08)
[2021-09-03] MEDS: BUDESONIDE/FORMETEROL FUMARATE 80/4.5 mcg INHALER IH SCH ×2 (10:22→22:15)
[2021-09-03] MEDS: PRENATAL VITAMINS W/ FOLIC ACID TABLET (FP) PO SCH (10:22)
[2021-09-03] MEDS: DIVALPROEX SODIUM 250 MG TABLET E.C. PO SCH ×2 (10:22→21:17)
[2021-09-03] MEDS: risperiDONE 1 MG TABLET PO SCH ×2 (10:22→21:17)
[2021-09-03] MEDS: NICOTINE 21 MG/24 HOURS TOPICAL PATCH TD SCH (10:23)
[2021-09-03] MEDS: AMMONIUM LACTATE 12% LOTION 225 GM BOTTLE TP SCH ×2 (10:23→21:19)
[2021-09-03] MEDS: BUPRENORPHINE/NALOXONE 4 MG/1 MG FILM PACKET SL SCH ×2 (10:23→17:33)
[2021-09-03] MEDS: NICOTINE 10 MG CARTRIDGE (INHALER) IH PRN (10:24)
[2021-09-03] MEDS: ACETAMINOPHEN 325 MG TABLET (FP) PO PRN (10:24)
[2021-09-03] MEDS: NICOTINE POLACRILEX 2 MG GUM BUC PRN (16:54)
[2021-09-03] MEDS: THIAMINE HCL 100 MG TABLET (FP) PO SCH (21:17)
[2021-09-03] MEDS: traZODone HCL 50 MG TABLET (FP) PO SCH (21:17)
[2021-09-03] MEDS: MELATONIN 5 MG TABLETS PO SCH (21:18)
[2021-09-03] MEDS: PRAZOSIN HCL 1 MG CAPSULE PO SCH (22:57)
[2021-09-04] MEDS: IBUPROFEN 400 MG TABLET (FP) PO PRN (06:22)
[2021-09-04] MEDS: DIVALPROEX SODIUM 250 MG TABLET E.C. PO SCH ×2 (10:22→21:30)
[2021-09-04] MEDS: PRENATAL VITAMINS W/ FOLIC ACID TABLET (FP) PO SCH (10:22)
[2021-09-04] MEDS: BUDESONIDE/FORMETEROL FUMARATE 80/4.5 mcg INHALER IH SCH ×2 (10:22→21:31)
[2021-09-04] MEDS: risperiDONE 1 MG TABLET PO SCH ×2 (10:23→21:30)
[2021-09-04] MEDS: BUPRENORPHINE/NALOXONE 4 MG/1 MG FILM PACKET SL SCH ×3 (10:23→19:11)
[2021-09-04] MEDS: NICOTINE 21 MG/24 HOURS TOPICAL PATCH TD SCH (10:23)
[2021-09-04] MEDS: NICOTINE 10 MG CARTRIDGE (INHALER) IH PRN ×2 (10:24→17:44)
[2021-09-04] MEDS: NICOTINE POLACRILEX 2 MG GUM BUC PRN ×2 (10:24→21:35)
[2021-09-04] MEDS: AMMONIUM LACTATE 12% LOTION 225 GM BOTTLE TP SCH ×2 (10:40→21:57)
[2021-09-04] MEDS: PRAZOSIN HCL 1 MG CAPSULE PO SCH (21:30)
[2021-09-04] MEDS: traZODone HCL 50 MG TABLET (FP) PO SCH (21:30)
[2021-09-04] MEDS: MELATONIN 5 MG TABLETS PO SCH (21:31)
[2021-09-04] MEDS: THIAMINE HCL 100 MG TABLET (FP) PO SCH (21:33)
[2021-09-05] MEDS: IBUPROFEN 400 MG TABLET (FP) PO PRN (03:10)
[2021-09-05] MEDS: NICOTINE POLACRILEX 2 MG GUM BUC PRN ×2 (06:27→09:49)
[2021-09-05] MEDS: NICOTINE 10 MG CARTRIDGE (INHALER) IH PRN ×2 (06:28→09:46)
[2021-09-05 07:29] VITALS: BP 115/71; PULSE 68; TEMP 97.2
[2021-09-05] MEDS: BUDESONIDE/FORMETEROL FUMARATE 80/4.5 mcg INHALER IH SCH (09:46)
[2021-09-05] MEDS: PRENATAL VITAMINS W/ FOLIC ACID TABLET (FP) PO SCH (09:46)
[2021-09-05] MEDS: BUPRENORPHINE/NALOXONE 4 MG/1 MG FILM PACKET SL SCH (09:46)
[2021-09-05] MEDS: risperiDONE 1 MG TABLET PO SCH (09:46)
[2021-09-05] MEDS: NICOTINE 21 MG/24 HOURS TOPICAL PATCH TD SCH (09:46)
[2021-09-05] MEDS: DIVALPROEX SODIUM 250 MG TABLET E.C. PO SCH (09:46)
[2021-09-05] MEDS: AMMONIUM LACTATE 12% LOTION 225 GM BOTTLE TP SCH (09:47)
[2021-09-05] MEDS: COLLOIDAL OATMEAL 1 BAR EACH TP PRN (09:56)
== END 2021-09-05 10:15 | disposition other institution (70) | DRG 895 ==
LOC: YASAS 14:04 → Y5N 14:06
PROVIDERS: ADMIT Allergy & Immunology; ATTEND Allergy & Immunology
PROC: HZ42ZZZ Group Counseling for Substance Abuse Treatment, Cognitive-Behavioral (ICD-10-PCS; principal; 2021-08-19)
DX: F10.20 Alcohol dependence, uncomplicated (principal); F11.20 Opioid dependence, uncomplicated; F14.20 Cocaine dependence, uncomplicated; F16.20 Hallucinogen dependence, uncomplicated; F12.20 Cannabis dependence, uncomplicated; F17.210 Nicotine dependence, cigarettes, uncomplicated; F25.9 Schizoaffective disorder, unspecified; F32.9 Major depressive disorder, single episode, unspecified; F41.9 Anxiety disorder, unspecified; F43.10 Post-traumatic stress disorder, unspecified; I10 Essential (primary) hypertension; J45.909 Unspecified asthma, uncomplicated; M25.561 Pain in right knee; M25.562 Pain in left knee; M54.50 Low back pain, unspecified; G89.29 Other chronic pain; R26.89 Other abnormalities of gait and mobility; Z62.810 Personal history of physical and sexual abuse in childhood; Z99.89 Dependence on other enabling machines and devices; Z91.19 Patient's noncompliance with other medical treatment and regimen
CPT/HCPCS: 80164; 90686; G0008; J2794

== ENCOUNTER 2021-09-25 13:06 | Inpatient (IN) | payer OTHER ==
[2021-09-25] MEDS ORDERED: MENTHOL/PHENOL 1 EACH UD MM PRN (13:51)
[2021-09-25] MEDS ORDERED: MAG HYDROX/AL HYDROX/SIMETH 30 ML UNIT-DOSE CUP PO PRN (13:51)
[2021-09-25] MEDS ORDERED: MAGNESIUM HYDROX 2400MG/30ML ORAL SUSPENSION 30 ML CUP PO PRN (13:51)
[2021-09-25] MEDS ORDERED: NICOTINE 10 MG CARTRIDGE (INHALER) IH PRN (13:51)
[2021-09-25] MEDS ORDERED: ACETAMINOPHEN 325 MG TABLET (FP) PO PRN ×2 (13:51)
[2021-09-25] MEDS ORDERED: BISMUTH SUBSALICYLATE 262 MG/15 ML BTL PO PRN (13:51)
[2021-09-25] MEDS ORDERED: ONDANSETRON *ODT* 4 MG TABLET SL PRN (13:51)
[2021-09-25] MEDS ORDERED: MAGNESIUM CITRATE 300 ML BOTTLE PO PRN (13:51)
[2021-09-25 14:18] VITALS: BMI 31.6
[2021-09-25] MEDS ORDERED: ALBUTEROL SO4 HFA INHALER IH PRN (14:44)
[2021-09-25] MEDS: hydrOXYzine PAMOATE 25 MG CAPSULE (FP) PO SCH ×3 (19:37→23:18)
[2021-09-25] MEDS ORDERED: PRAZOSIN HCL 1 MG CAPSULE PO SCH (22:00)
[2021-09-25] MEDS ORDERED: traZODone HCL 50 MG TABLET (FP) PO SCH (22:00)
[2021-09-25] MEDS ORDERED: DIVALPROEX NA *ER* EXTEND REL 500 MG TABLET.SA (FP) PO SCH (22:00)
[2021-09-25] MEDS: MELATONIN 5 MG TABLETS PO SCH (23:17)
[2021-09-25] MEDS: BUDESONIDE/FORMETEROL FUMARATE 80/4.5 mcg INHALER IH SCH (23:18)
[2021-09-25] MEDS: BUPRENORPHINE/NALOXONE 4 MG/1 MG FILM PACKET SL SCH (23:18)
[2021-09-25] MEDS: THIAMINE HCL 100 MG TABLET (FP) PO SCH (23:19)
[2021-09-26] MEDS: IBUPROFEN 400 MG TABLET (FP) PO PRN ×2 (01:50→07:47)
[2021-09-26] MEDS: METHOCARBAMOL 500 MG TABLET PO PRN ×2 (01:50→07:50)
[2021-09-26] MEDS: hydrOXYzine PAMOATE 25 MG CAPSULE (FP) PO SCH ×4 (06:52→18:06)
[2021-09-26] MEDS ORDERED: ARIPiprazole 15 MG TABLET PO SCH (10:00)
[2021-09-26] MEDS ORDERED: DIVALPROEX SODIUM 250 MG TABLET E.C. PO SCH (10:00)
[2021-09-26] MEDS: PRENATAL VITAMINS W/ FOLIC ACID TABLET (FP) PO SCH (10:28)
[2021-09-26] MEDS: BUPRENORPHINE/NALOXONE 4 MG/1 MG FILM PACKET SL SCH ×2 (10:29→22:51)
[2021-09-26] MEDS: BUDESONIDE/FORMETEROL FUMARATE 80/4.5 mcg INHALER IH SCH ×2 (10:30→22:51)
[2021-09-26] MEDS ORDERED: DIVALPROEX SODIUM 250 MG TABLET E.C. PO ONE ×2 (18:33→22:00)
[2021-09-26] MEDS ORDERED: hydrOXYzine PAMOATE 25 MG CAPSULE (FP) PO PRN (18:39)
[2021-09-26] MEDS ORDERED: traZODone HCL 50 MG TABLET (FP) PO ONE (22:00)
[2021-09-26] MEDS: THIAMINE HCL 100 MG TABLET (FP) PO SCH (22:51)
[2021-09-26] MEDS: MELATONIN 5 MG TABLETS PO SCH (22:51)
[2021-09-27] MEDS: BUPRENORPHINE/NALOXONE 4 MG/1 MG FILM PACKET SL SCH ×2 (10:32→22:16)
[2021-09-27] MEDS: PRENATAL VITAMINS W/ FOLIC ACID TABLET (FP) PO SCH (10:32)
[2021-09-27] MEDS: BUDESONIDE/FORMETEROL FUMARATE 80/4.5 mcg INHALER IH SCH ×2 (10:34→22:14)
[2021-09-27 11:01] LABS: HEMATOCRIT 35.9 % (32.4-45.2); HEMOGLOBIN 12.2 GM/dL (10.7-15.3); MCH 30.6 pg (25.7-33.7); MCHC 33.9 g/dl (32.0-36.0); MEAN CELL VOLUME 90.1 fl (80-96); MEAN PLT VOLUME 6.9 fl (7.5-11.1); PLATELET COUNT 303 10^3/uL (134-434); RBC 3.99 M/mm3 (3.60-5.2); RDW 13.8 % (11.6-15.6)
[2021-09-27] MEDS ORDERED: diazePAM 5 MG TABLET PO PRN (11:16)
[2021-09-27] MEDS: diazePAM 5 MG TABLET PO SCH ×3 (12:23→22:17)
[2021-09-27 13:45] LABS: ALBUMIN 3.1 g/dl (3.4-5.0); BILIRUBIN,TOTAL 0.3 mg/dL (0.2-1); BLOOD UREA NITROGEN 11.3 mg/dL (7-18); CALCIUM 8.4 mg/dL (8.5-10.1); CREATININE 0.8 mg/dL (0.55-1.3); TOT PROT 6.6 g/dl (6.4-8.2)
[2021-09-27] MEDS: IBUPROFEN 400 MG TABLET (FP) PO PRN (17:44)
[2021-09-27] MEDS: METHOCARBAMOL 500 MG TABLET PO PRN (22:16)
[2021-09-27] MEDS: traZODone HCL 50 MG TABLET (FP) PO SCH (22:16)
[2021-09-27] MEDS: MELATONIN 5 MG TABLETS PO SCH (22:16)
[2021-09-27] MEDS: THIAMINE HCL 100 MG TABLET (FP) PO SCH (22:16)
[2021-09-27] MEDS: DIVALPROEX SODIUM 250 MG TABLET E.C. PO SCH (22:16)
[2021-09-28] MEDS: diazePAM 5 MG TABLET PO SCH ×4 (06:21→22:23)
[2021-09-28] MEDS: IBUPROFEN 400 MG TABLET (FP) PO PRN (06:21)
[2021-09-28] MEDS: PRENATAL VITAMINS W/ FOLIC ACID TABLET (FP) PO SCH (10:18)
[2021-09-28] MEDS: BUPRENORPHINE/NALOXONE 4 MG/1 MG FILM PACKET SL SCH ×2 (10:18→22:22)
[2021-09-28] MEDS: BUDESONIDE/FORMETEROL FUMARATE 80/4.5 mcg INHALER IH SCH ×2 (10:18→22:24)
[2021-09-28] MEDS: ARIPiprazole 5 MG TABLET PO SCH (10:19)
[2021-09-28] MEDS: DIVALPROEX SODIUM 250 MG TABLET E.C. PO SCH ×2 (10:19→22:22)
[2021-09-28] MEDS: METHOCARBAMOL 500 MG TABLET PO PRN (17:32)
[2021-09-28] MEDS: traZODone HCL 50 MG TABLET (FP) PO SCH (22:22)
[2021-09-28] MEDS: MELATONIN 5 MG TABLETS PO SCH (22:22)
[2021-09-28] MEDS: THIAMINE HCL 100 MG TABLET (FP) PO SCH (22:22)
[2021-09-29] MEDS ORDERED: diazePAM 5 MG TABLET PO SCH (06:00)
[2021-09-29 09:25] VITALS: BP 118/73; PULSE 53; TEMP 96.8
[2021-09-29] MEDS: PRENATAL VITAMINS W/ FOLIC ACID TABLET (FP) PO SCH (10:14)
[2021-09-29] MEDS: DIVALPROEX SODIUM 250 MG TABLET E.C. PO SCH (10:14)
[2021-09-29] MEDS: ARIPiprazole 5 MG TABLET PO SCH (10:16)
[2021-09-29] MEDS: BUPRENORPHINE/NALOXONE 4 MG/1 MG FILM PACKET SL SCH (10:16)
[2021-09-29] MEDS: BUDESONIDE/FORMETEROL FUMARATE 80/4.5 mcg INHALER IH SCH (10:53)
[2021-09-30] MEDS ORDERED: diazePAM 5 MG TABLET PO SCH (06:00)
[2021-10-01] MEDS ORDERED: diazePAM 5 MG TABLET PO ONE (06:00)
== END 2021-09-29 12:10 | disposition left against medical advice (07) | DRG 894 ==
LOC: YASAS 13:06 → Y3N 14:23
PROVIDERS: ADMIT Allergy & Immunology; ATTEND Allergy & Immunology
PROC: HZ2ZZZZ Detoxification Services for Substance Abuse Treatment (ICD-10-PCS; principal; 2021-09-25)
DX: F10.230 Alcohol dependence with withdrawal, uncomplicated (principal); F11.20 Opioid dependence, uncomplicated; F14.20 Cocaine dependence, uncomplicated; F12.20 Cannabis dependence, uncomplicated; F17.210 Nicotine dependence, cigarettes, uncomplicated; F41.9 Anxiety disorder, unspecified; F32.9 Major depressive disorder, single episode, unspecified; F19.24 Other psychoactive substance dependence with psychoactive substance-induced mood disorder; F43.10 Post-traumatic stress disorder, unspecified; F25.9 Schizoaffective disorder, unspecified; J45.909 Unspecified asthma, uncomplicated; R26.2 Difficulty in walking, not elsewhere classified; Z99.89 Dependence on other enabling machines and devices; Z91.013 Allergy to seafood; Z91.19 Patient's noncompliance with other medical treatment and regimen; Z62.810 Personal history of physical and sexual abuse in childhood; Z56.0 Unemployment, unspecified; Z59.01 Sheltered homelessness
CPT/HCPCS: 36415; 80053; 80164; 81025; 85027; 86780; C9803; Q0162; U0003; U0005

== ENCOUNTER 2021-10-11 09:41 | Inpatient (IN) | payer OTHER ==
[2021-10-11] MEDS ORDERED: MAG HYDROX/AL HYDROX/SIMETH 30 ML UNIT-DOSE CUP PO PRN (10:09)
[2021-10-11] MEDS ORDERED: IBUPROFEN 400 MG TABLET (FP) PO PRN (10:09)
[2021-10-11] MEDS ORDERED: NICOTINE 10 MG CARTRIDGE (INHALER) IH PRN (10:09)
[2021-10-11] MEDS ORDERED: guaiFENesin 200 MG/10 ML 10 ML UNIT-DOSE CUPS PO PRN (10:09)
[2021-10-11] MEDS ORDERED: P-EPHED 60MG/TRIPROLIDI 2.5MG TABLET PO PRN (10:09)
[2021-10-11] MEDS ORDERED: LOPERAMIDE HCL 2 MG CAPSULE PO PRN (10:09)
[2021-10-11] MEDS ORDERED: MAGNESIUM HYDROX 2400MG/30ML ORAL SUSPENSION 30 ML CUP PO PRN (10:09)
[2021-10-11] MEDS ORDERED: MAGNESIUM CITRATE 300 ML BOTTLE PO PRN (10:09)
[2021-10-11] MEDS ORDERED: ACETAMINOPHEN 325 MG TABLET (FP) PO PRN (10:09)
[2021-10-11] MEDS ORDERED: ALBUTEROL SO4 HFA INHALER IH PRN (10:11)
[2021-10-11 10:36] VITALS: BMI 31.3
[2021-10-11] MEDS: PRENATAL VITAMINS W/ FOLIC ACID TABLET (FP) PO SCH (13:26)
[2021-10-11] MEDS: hydrOXYzine PAMOATE 25 MG CAPSULE (FP) PO SCH ×3 (13:26→23:09)
[2021-10-11] MEDS: NICOTINE 7 MG/24 HOURS TOPICAL PATCH TD SCH (13:26)
[2021-10-11 15:44] LABS: HEMATOCRIT 36.4 % (32.4-45.2); HEMOGLOBIN 12.3 GM/dL (10.7-15.3); MCH 30.5 pg (25.7-33.7); MCHC 33.8 g/dl (32.0-36.0); MEAN CELL VOLUME 90.4 fl (80-96); MEAN PLT VOLUME 6.6 fl (7.5-11.1); PLATELET COUNT 395 10^3/uL (134-434); RBC 4.03 M/mm3 (3.60-5.2); RDW 14.9 % (11.6-15.6); WHITE BLOOD COUNT 6.3 K/mm3 (4.0-10.0)
[2021-10-11 16:05] LABS: ALBUMIN 3.7 g/dl (3.4-5.0); BLOOD UREA NITROGEN 10.7 mg/dL (7-18); CALCIUM 8.9 mg/dL (8.5-10.1)
[2021-10-11 16:07] LABS: CREATININE 1.1 mg/dL (0.55-1.3)
[2021-10-11 16:09] LABS: BILIRUBIN,TOTAL 0.4 mg/dL (0.2-1); TOT PROT 7.5 g/dl (6.4-8.2)
[2021-10-11 16:23] LABS: SYPHILIS W/ RPR CONF NON-REACTIVE (NONREACTIVE)
[2021-10-11] MEDS ORDERED: PRAZOSIN HCL 1 MG CAPSULE PO SCH (22:00)
[2021-10-11] MEDS ORDERED: BUPRENORPHINE/NALOXONE 4 MG/1 MG FILM PACKET SL SCH (22:00)
[2021-10-11] MEDS: MELATONIN 5 MG TABLETS PO SCH (23:08)
[2021-10-11] MEDS: BUDESONIDE/FORMETEROL FUMARATE 80/4.5 mcg INHALER IH SCH (23:09)
[2021-10-11] MEDS: THIAMINE HCL 100 MG TABLET (FP) PO SCH (23:09)
[2021-10-12] MEDS: hydrOXYzine PAMOATE 25 MG CAPSULE (FP) PO SCH ×5 (07:21→23:01)
[2021-10-12] MEDS ORDERED: DIVALPROEX SODIUM 500 MG TABLET E.C. PO SCH (10:00)
[2021-10-12] MEDS: NICOTINE 7 MG/24 HOURS TOPICAL PATCH TD SCH (11:08)
[2021-10-12] MEDS: BUDESONIDE/FORMETEROL FUMARATE 80/4.5 mcg INHALER IH SCH ×2 (11:09→23:00)
[2021-10-12] MEDS: PRENATAL VITAMINS W/ FOLIC ACID TABLET (FP) PO SCH (11:09)
[2021-10-12] MEDS: MELATONIN 5 MG TABLETS PO SCH (23:00)
[2021-10-12] MEDS: THIAMINE HCL 100 MG TABLET (FP) PO SCH (23:01)
[2021-10-13] MEDS: hydrOXYzine PAMOATE 25 MG CAPSULE (FP) PO SCH ×5 (07:25→22:25)
[2021-10-13] MEDS: NICOTINE 7 MG/24 HOURS TOPICAL PATCH TD SCH (10:46)
[2021-10-13] MEDS: METHOCARBAMOL 500 MG TABLET PO PRN ×3 (10:47→22:24)
[2021-10-13] MEDS: PRENATAL VITAMINS W/ FOLIC ACID TABLET (FP) PO SCH (10:47)
[2021-10-13] MEDS: BUDESONIDE/FORMETEROL FUMARATE 80/4.5 mcg INHALER IH SCH ×2 (10:49→22:29)
[2021-10-13] MEDS: DIVALPROEX SODIUM 250 MG TABLET E.C. PO SCH ×2 (12:42→22:25)
[2021-10-13] MEDS: cloNIDine HCL 0.1 MG TABLET PO PRN ×2 (12:42→17:45)
[2021-10-13] MEDS: ARIPiprazole 5 MG TABLET PO SCH (12:42)
[2021-10-13 18:52] VITALS: PULSE 83
[2021-10-13] MEDS ORDERED: traZODone HCL 50 MG TABLET (FP) PO SCH (22:00)
[2021-10-13] MEDS ORDERED: PRAZOSIN HCL 1 MG CAPSULE PO SCH (22:00)
[2021-10-13] MEDS: THIAMINE HCL 100 MG TABLET (FP) PO SCH (22:25)
[2021-10-13] MEDS: MELATONIN 5 MG TABLETS PO SCH (22:27)
[2021-10-14] MEDS: hydrOXYzine PAMOATE 25 MG CAPSULE (FP) PO SCH ×2 (06:47→10:28)
[2021-10-14 07:08] VITALS: BP 140/84; TEMP 97.7
[2021-10-14] MEDS: PRENATAL VITAMINS W/ FOLIC ACID TABLET (FP) PO SCH (10:27)
[2021-10-14] MEDS: ARIPiprazole 5 MG TABLET PO SCH (10:27)
[2021-10-14] MEDS: DIVALPROEX SODIUM 250 MG TABLET E.C. PO SCH (10:27)
[2021-10-14] MEDS: NICOTINE 7 MG/24 HOURS TOPICAL PATCH TD SCH (10:28)
[2021-10-14] MEDS: BUDESONIDE/FORMETEROL FUMARATE 80/4.5 mcg INHALER IH SCH (10:28)
== END 2021-10-14 12:14 | disposition left against medical advice (07) | DRG 894 ==
LOC: YASAS 09:41 → Y5N 11:28
PROVIDERS: ADMIT Allergy & Immunology; ATTEND Allergy & Immunology
PROC: HZ42ZZZ Group Counseling for Substance Abuse Treatment, Cognitive-Behavioral (ICD-10-PCS; principal; 2021-10-11)
DX: F11.20 Opioid dependence, uncomplicated (principal); F14.20 Cocaine dependence, uncomplicated; F15.20 Other stimulant dependence, uncomplicated; F19.282 Other psychoactive substance dependence with psychoactive substance-induced sleep disorder; F19.280 Other psychoactive substance dependence with psychoactive substance-induced anxiety disorder; F10.20 Alcohol dependence, uncomplicated; F12.20 Cannabis dependence, uncomplicated; F17.210 Nicotine dependence, cigarettes, uncomplicated; F43.10 Post-traumatic stress disorder, unspecified; F19.24 Other psychoactive substance dependence with psychoactive substance-induced mood disorder; I10 Essential (primary) hypertension; J45.909 Unspecified asthma, uncomplicated; Z91.013 Allergy to seafood; Z91.19 Patient's noncompliance with other medical treatment and regimen; Z91.51 Personal history of suicidal behavior; Z56.0 Unemployment, unspecified; Z59.01 Sheltered homelessness
CPT/HCPCS: 36415; 80053; 80164; 81025; 85027; 86780; 86803; 87811; J0735

== ENCOUNTER 2021-11-16 09:33 | Inpatient (IN) | payer OTHER ==
[2021-11-16] MEDS ORDERED: P-EPHED 60MG/TRIPROLIDI 2.5MG TABLET PO PRN (14:31)
[2021-11-16] MEDS ORDERED: MAGNESIUM HYDROX 2400MG/30ML ORAL SUSPENSION 30 ML CUP PO PRN (14:31)
[2021-11-16] MEDS ORDERED: LOPERAMIDE HCL 2 MG CAPSULE PO PRN (14:31)
[2021-11-16] MEDS ORDERED: MAGNESIUM CITRATE 300 ML BOTTLE PO PRN (14:31)
[2021-11-16] MEDS ORDERED: ACETAMINOPHEN 325 MG TABLET (FP) PO PRN (14:31)
[2021-11-16] MEDS ORDERED: NICOTINE POLACRILEX 2 MG GUM BUC PRN (14:31)
[2021-11-16] MEDS ORDERED: MAG HYDROX/AL HYDROX/SIMETH 30 ML UNIT-DOSE CUP PO PRN (14:31)
[2021-11-16] MEDS ORDERED: IBUPROFEN 400 MG TABLET (FP) PO PRN (14:31)
[2021-11-16] MEDS ORDERED: hydrOXYzine PAMOATE 25 MG CAPSULE (FP) PO PRN (14:31)
[2021-11-16] MEDS ORDERED: NICOTINE 10 MG CARTRIDGE (INHALER) IH PRN (14:31)
[2021-11-16] MEDS ORDERED: guaiFENesin 200 MG/10 ML 10 ML UNIT-DOSE CUPS PO PRN (14:31)
[2021-11-16] MEDS ORDERED: ALBUTEROL SO4 HFA INHALER IH PRN (14:37)
[2021-11-16] MEDS ORDERED: cloNIDine HCL 0.1 MG TABLET PO ONE (14:41)
[2021-11-16] MEDS ORDERED: MELATONIN 5 MG TABLETS PO PRN (14:42)
[2021-11-16 14:52] VITALS: BMI 30.8
[2021-11-16] MEDS ORDERED: cloNIDine HCL 0.1 MG TABLET ONE (14:56)
[2021-11-16] MEDS ORDERED: BENZOCAINE 20 % GEL TUBE MM PRN (20:07)
[2021-11-16] MEDS: BUDESONIDE/FORMETEROL FUMARATE 80/4.5 mcg INHALER IH SCH (21:22)
[2021-11-16] MEDS ORDERED: MELATONIN 5 MG TABLETS PO SCH (22:00)
[2021-11-16] MEDS ORDERED: THIAMINE HCL 100 MG TABLET (FP) PO SCH (22:00)
[2021-11-17 07:20] VITALS: TEMP 98.6
[2021-11-17] MEDS ORDERED: PRENATAL VITAMINS W/ FOLIC ACID TABLET (FP) PO SCH (10:00)
[2021-11-17] MEDS ORDERED: BENZOYL PEROXIDE 5% 60 GM GEL..GRAM. TP SCH (10:00)
[2021-11-17] MEDS ORDERED: ARIPiprazole 5 MG TABLET PO SCH (10:00)
[2021-11-17] MEDS ORDERED: DIVALPROEX SODIUM 250 MG TABLET E.C. PO SCH (10:00)
[2021-11-17] MEDS: BUDESONIDE/FORMETEROL FUMARATE 80/4.5 mcg INHALER IH SCH (10:25)
[2021-11-17 10:45] LABS: EPI CELLS 2 /uL (0-25.1); HYALINE CASTS 1 /uL (0-3.1); URINE APPEARANCE CLOUDY; URINE BACTERIA 2413 /uL (0-1359); URINE BILIRUBIN NEGATIVE (NEGATIVE); URINE COLOR YELLOW; URINE GLUCOSE (UA) NEGATIVE (NEGATIVE); URINE KETONE NEGATIVE (NEGATIVE); URINE LEUK ESTERASE 3+ (NEGATIVE); URINE NITRITE NEGATIVE (NEGATIVE); URINE PROTEIN NEGATIVE (NEGATIVE); URINE RBC 38 /uL (0-23.9); URINE UROBILINOGEN 0.2 mg/dL (0.2-1.0); URINE WBC 1217 /uL (0-25.8)
[2021-11-17 11:18] VITALS: BP 154/96; PULSE 67
[2021-11-17] MEDS ORDERED: PRAZOSIN HCL 1 MG CAPSULE PO SCH (22:00)
[2021-11-17] MEDS ORDERED: DIVALPROEX SODIUM 500 MG TABLET E.C. PO SCH (22:00)
[2021-11-17] MEDS ORDERED: traZODone HCL 50 MG TABLET (FP) PO SCH (22:00)
== END 2021-11-17 10:55 | disposition left against medical advice (07) | DRG 894 ==
LOC: YASAS 09:33 → Y3W 18:06
PROVIDERS: ADMIT Allergy & Immunology; ATTEND Allergy & Immunology
PROC: HZ2ZZZZ Detoxification Services for Substance Abuse Treatment (ICD-10-PCS; principal; 2021-11-16)
DX: F11.20 Opioid dependence, uncomplicated (principal); F14.20 Cocaine dependence, uncomplicated; F10.20 Alcohol dependence, uncomplicated; F12.20 Cannabis dependence, uncomplicated; F17.210 Nicotine dependence, cigarettes, uncomplicated; F25.9 Schizoaffective disorder, unspecified; F43.10 Post-traumatic stress disorder, unspecified; I10 Essential (primary) hypertension; J45.909 Unspecified asthma, uncomplicated; K08.89 Other specified disorders of teeth and supporting structures; Z62.810 Personal history of physical and sexual abuse in childhood; Z91.410 Personal history of adult physical and sexual abuse; Z87.2 Personal history of diseases of the skin and subcutaneous tissue; Z56.0 Unemployment, unspecified; Z59.00 Homelessness unspecified
CPT/HCPCS: 81003; C9803; J0735; U0003; U0005

== ENCOUNTER 2021-11-25 10:11 | Inpatient (IN) | payer OTHER ==
[2021-11-25] MEDS ORDERED: MAGNESIUM HYDROX 2400MG/30ML ORAL SUSPENSION 30 ML CUP PO PRN (10:51)
[2021-11-25] MEDS ORDERED: ACETAMINOPHEN 325 MG TABLET (FP) PO PRN ×2 (10:51)
[2021-11-25] MEDS ORDERED: MENTHOL/PHENOL 1 EACH UD MM PRN (10:51)
[2021-11-25] MEDS ORDERED: ONDANSETRON *ODT* 4 MG TABLET SL PRN (10:51)
[2021-11-25] MEDS ORDERED: BISMUTH SUBSALICYLATE 262 MG/15 ML BTL PO PRN (10:51)
[2021-11-25] MEDS ORDERED: MAGNESIUM CITRATE 300 ML BOTTLE PO PRN (10:51)
[2021-11-25] MEDS ORDERED: NICOTINE 10 MG CARTRIDGE (INHALER) IH PRN (10:51)
[2021-11-25] MEDS ORDERED: chlordiazePOXIDE HCL 25 MG CAPSULE PO PRN (10:51)
[2021-11-25] MEDS ORDERED: MAG HYDROX/AL HYDROX/SIMETH 30 ML UNIT-DOSE CUP PO PRN (10:51)
[2021-11-25] MEDS ORDERED: IBUPROFEN 400 MG TABLET (FP) PO PRN (10:51)
[2021-11-25 10:54] VITALS: BMI 29.9
[2021-11-25] MEDS: METHOCARBAMOL 500 MG TABLET PO PRN ×2 (11:51→17:37)
[2021-11-25] MEDS: hydrOXYzine PAMOATE 25 MG CAPSULE (FP) PO SCH ×3 (12:00→22:29)
[2021-11-25] MEDS: ARIPiprazole 5 MG TABLET PO SCH (15:35)
[2021-11-25] MEDS: DIVALPROEX SODIUM 250 MG TABLET E.C. PO SCH (15:36)
[2021-11-25 15:48] LABS: HEMATOCRIT 43.5 % (32.4-45.2); MCH 30.7 pg (25.7-33.7); MCHC 34.5 g/dl (32.0-36.0); MEAN CELL VOLUME 89.1 fl (80-96); MEAN PLT VOLUME 6.6 fl (7.5-11.1); PLATELET COUNT 503 10^3/uL (134-434); RBC 4.88 M/mm3 (3.60-5.2); RDW 13.9 % (11.6-15.6); WHITE BLOOD COUNT 7.8 K/mm3 (4.0-10.0)
[2021-11-25 15:56] LABS: CALCIUM 10.4 mg/dL (8.5-10.1)
[2021-11-25 15:57] LABS: ALBUMIN 4.6 g/dl (3.4-5.0); BLOOD UREA NITROGEN 15.4 mg/dL (7-18)
[2021-11-25 16:00] LABS: CREATININE 1.1 mg/dL (0.55-1.3)
[2021-11-25 16:02] LABS: BILIRUBIN,TOTAL 0.4 mg/dL (0.2-1); TOT PROT 8.8 g/dl (6.4-8.2)
[2021-11-25] MEDS: chlordiazePOXIDE HCL 25 MG CAPSULE PO SCH ×2 (17:37→22:29)
[2021-11-25] MEDS ORDERED: PRAZOSIN HCL 1 MG CAPSULE PO SCH (22:00)
[2021-11-25] MEDS ORDERED: MELATONIN 5 MG TABLETS PO SCH (22:00)
[2021-11-25] MEDS ORDERED: traZODone HCL 50 MG TABLET (FP) PO SCH (22:00)
[2021-11-25] MEDS ORDERED: THIAMINE HCL 100 MG TABLET (FP) PO SCH (22:00)
[2021-11-25] MEDS ORDERED: DIVALPROEX SODIUM 500 MG TABLET E.C. PO SCH (22:00)
[2021-11-26] MEDS: hydrOXYzine PAMOATE 25 MG CAPSULE (FP) PO SCH ×4 (05:54→18:28)
[2021-11-26] MEDS: chlordiazePOXIDE HCL 25 MG CAPSULE PO SCH ×3 (05:54→18:28)
[2021-11-26] MEDS ORDERED: PRENATAL VITAMINS W/ FOLIC ACID TABLET (FP) PO SCH (10:00)
[2021-11-26] MEDS: ARIPiprazole 5 MG TABLET PO SCH (10:20)
[2021-11-26] MEDS: DIVALPROEX SODIUM 250 MG TABLET E.C. PO SCH (10:20)
[2021-11-26] MEDS ORDERED: PHENAZOPYRIDINE HCL 100 MG TABLET (FP) PO ONE (18:26)
[2021-11-26 19:21] VITALS: BP 150/84; PULSE 95; TEMP 96.9
[2021-11-27] MEDS ORDERED: chlordiazePOXIDE HCL 25 MG CAPSULE PO SCH (05:00)
[2021-11-28] MEDS ORDERED: chlordiazePOXIDE HCL 10 MG CAPSULE PO PRN
[2021-11-28] MEDS ORDERED: chlordiazePOXIDE HCL 10 MG CAPSULE PO SCH (05:00)
[2021-11-29] MEDS ORDERED: chlordiazePOXIDE HCL 10 MG CAPSULE PO SCH (05:00)
[2021-11-30] MEDS ORDERED: chlordiazePOXIDE HCL 10 MG CAPSULE PO ONE (05:00)
== END 2021-11-26 20:45 | disposition left against medical advice (07) | DRG 894 ==
LOC: YASAS 10:11 → Y6N 11:10
PROVIDERS: ADMIT Allergy & Immunology; ATTEND Allergy & Immunology
PROC: HZ2ZZZZ Detoxification Services for Substance Abuse Treatment (ICD-10-PCS; principal; 2021-11-25)
DX: F10.230 Alcohol dependence with withdrawal, uncomplicated (principal); F11.20 Opioid dependence, uncomplicated; F14.20 Cocaine dependence, uncomplicated; F19.282 Other psychoactive substance dependence with psychoactive substance-induced sleep disorder; F19.280 Other psychoactive substance dependence with psychoactive substance-induced anxiety disorder; F12.20 Cannabis dependence, uncomplicated; F17.210 Nicotine dependence, cigarettes, uncomplicated; F25.0 Schizoaffective disorder, bipolar type; F19.24 Other psychoactive substance dependence with psychoactive substance-induced mood disorder; D64.9 Anemia, unspecified; I10 Essential (primary) hypertension; J45.909 Unspecified asthma, uncomplicated; Z62.810 Personal history of physical and sexual abuse in childhood; Z91.410 Personal history of adult physical and sexual abuse; Z86.69 Personal history of other diseases of the nervous system and sense organs; Z87.2 Personal history of diseases of the skin and subcutaneous tissue; Z99.89 Dependence on other enabling machines and devices; Z51.81 Encounter for therapeutic drug level monitoring; Z79.899 Other long term (current) drug therapy
CPT/HCPCS: 36415; 80053; 85027; 86780; C9803; U0003; U0005

== ENCOUNTER 2022-02-05 13:27 | Inpatient (IN) | payer OTHER ==
[2022-02-05] MEDS ORDERED: MAGNESIUM CITRATE 300 ML BOTTLE PO PRN (14:34)
[2022-02-05] MEDS ORDERED: MAG HYDROX/AL HYDROX/SIMETH 30 ML UNIT-DOSE CUP PO PRN (14:34)
[2022-02-05] MEDS ORDERED: ACETAMINOPHEN 325 MG TABLET (FP) PO PRN (14:34)
[2022-02-05] MEDS ORDERED: MENTHOL/PHENOL 1 EACH UD MM PRN (14:34)
[2022-02-05] MEDS ORDERED: LOPERAMIDE HCL 2 MG CAPSULE PO PRN (14:34)
[2022-02-05] MEDS ORDERED: BISMUTH SUBSALICYLATE 262 MG/15 ML BTL PO PRN (14:34)
[2022-02-05] MEDS ORDERED: MAGNESIUM HYDROX 2400MG/30ML ORAL SUSPENSION 30 ML CUP PO PRN (14:34)
[2022-02-05] MEDS ORDERED: ONDANSETRON *ODT* 4 MG TABLET SL PRN (14:34)
[2022-02-05] MEDS ORDERED: BACLOFEN 10 MG TABLET (FP) PO PRN (14:34)
[2022-02-05] MEDS ORDERED: DICYCLOMINE HCL 10 MG CAPSULE PO PRN (14:34)
[2022-02-05] MEDS ORDERED: chlordiazePOXIDE HCL 25 MG CAPSULE PO PRN (14:34)
[2022-02-05] MEDS ORDERED: IBUPROFEN 400 MG TABLET (FP) PO PRN (14:34)
[2022-02-05] MEDS ORDERED: COLLOIDAL OATMEAL 1 BAR EACH TP PRN (14:40)
[2022-02-05] MEDS ORDERED: BENZOYL PEROXIDE 5% 60 GM GEL..GRAM. TP ONE (14:41)
[2022-02-05 14:55] VITALS: BMI 32.8
[2022-02-05] MEDS: hydrOXYzine PAMOATE 25 MG CAPSULE (FP) PO SCH ×2 (18:53→22:23)
[2022-02-05] MEDS: NICOTINE 10 MG CARTRIDGE (INHALER) IH PRN (18:53)
[2022-02-05] MEDS: PRENATAL VITAMINS W/ FOLIC ACID TABLET (FP) PO SCH (18:54)
[2022-02-05] MEDS: chlordiazePOXIDE HCL 25 MG CAPSULE PO SCH ×2 (18:54→22:23)
[2022-02-05] MEDS: MELATONIN 5 MG TABLETS PO SCH (22:23)
[2022-02-05] MEDS: THIAMINE HCL 100 MG TABLET (FP) PO SCH (22:23)
[2022-02-05] MEDS: ACETAMINOPHEN 325 MG TABLET (FP) PO PRN (22:24)
[2022-02-06] MEDS: hydrOXYzine PAMOATE 25 MG CAPSULE (FP) PO SCH ×5 (07:59→22:17)
[2022-02-06] MEDS: chlordiazePOXIDE HCL 25 MG CAPSULE PO SCH ×4 (07:59→22:17)
[2022-02-06] MEDS: PRENATAL VITAMINS W/ FOLIC ACID TABLET (FP) PO SCH (10:37)
[2022-02-06 12:13] LABS: HEMATOCRIT 36.5 % (32.4-45.2); HEMOGLOBIN 12.1 GM/dL (10.7-15.3); MCH 29.4 pg (25.7-33.7); MCHC 33.1 g/dl (32.0-36.0); MEAN PLT VOLUME 6.7 fl (7.5-11.1); PLATELET COUNT 336 10^3/uL (134-434); RDW 13.5 % (11.6-15.6); WHITE BLOOD COUNT 5.4 K/mm3 (4.0-10.0)
[2022-02-06] MEDS ORDERED: NAPROXEN 500 MG TABLET PO PRN (12:13)
[2022-02-06 12:21] LABS: ALBUMIN 2.6 g/dl (3.4-5.0); BLOOD UREA NITROGEN 12.6 mg/dL (7-18); CALCIUM 8.3 mg/dL (8.5-10.1); CREATININE 0.9 mg/dL (0.55-1.3)
[2022-02-06 12:23] LABS: TOT PROT 7.2 g/dl (6.4-8.2)
[2022-02-06 12:24] LABS: BILIRUBIN,TOTAL 0.3 mg/dL (0.2-1)
[2022-02-06] MEDS: NICOTINE 10 MG CARTRIDGE (INHALER) IH PRN (12:51)
[2022-02-06 14:08] LABS: SARS-CoV-2 NAA Not Detected (Not Detected)
[2022-02-06] MEDS: ACETAMINOPHEN 325 MG TABLET (FP) PO PRN (17:24)
[2022-02-06] MEDS ORDERED: DIVALPROEX SODIUM 250 MG TABLET E.C. PO SCH (22:00)
[2022-02-06] MEDS ORDERED: traZODone HCL 50 MG TABLET (FP) PO SCH (22:00)
[2022-02-06] MEDS ORDERED: PRAZOSIN HCL 1 MG CAPSULE PO SCH (22:00)
[2022-02-06] MEDS: THIAMINE HCL 100 MG TABLET (FP) PO SCH (22:17)
[2022-02-06] MEDS: MELATONIN 5 MG TABLETS PO SCH (22:17)
[2022-02-06] MEDS: DIVALPROEX SODIUM 500 MG TABLET E.C. PO SCH (22:17)
[2022-02-07] MEDS: hydrOXYzine PAMOATE 25 MG CAPSULE (FP) PO SCH ×3 (06:46→14:11)
[2022-02-07] MEDS: chlordiazePOXIDE HCL 25 MG CAPSULE PO SCH ×2 (06:47→11:14)
[2022-02-07] MEDS ORDERED: ARIPiprazole 10 MG TABLET PO SCH (10:00)
[2022-02-07] MEDS ORDERED: ARIPiprazole 5 MG TABLET PO SCH (10:00)
[2022-02-07] MEDS: DIVALPROEX SODIUM 500 MG TABLET E.C. PO SCH (10:41)
[2022-02-07] MEDS: PRENATAL VITAMINS W/ FOLIC ACID TABLET (FP) PO SCH (10:41)
[2022-02-07] MEDS ORDERED: PENICILLIN G BENZATHINE 2,400,000 UNIT/4 ML PFS IM ONE (11:30)
[2022-02-07 18:08] LABS: SARS-CoV-2 NAA Not Detected (Not Detected)
[2022-02-07 18:51] VITALS: BP 90/55; PULSE 78; TEMP 97.9
[2022-02-08] MEDS ORDERED: chlordiazePOXIDE HCL 10 MG CAPSULE PO PRN
[2022-02-08] MEDS ORDERED: chlordiazePOXIDE HCL 10 MG CAPSULE PO SCH (05:00)
[2022-02-09] MEDS ORDERED: chlordiazePOXIDE HCL 10 MG CAPSULE PO SCH (05:00)
[2022-02-10] MEDS ORDERED: chlordiazePOXIDE HCL 10 MG CAPSULE PO ONE (05:00)
== END 2022-02-07 15:06 | disposition home or self-care (01) | DRG 897 ==
LOC: YASAS 13:27 → Y3N 17:55
PROVIDERS: ADMIT Allergy & Immunology; ATTEND Allergy & Immunology
PROC: HZ2ZZZZ Detoxification Services for Substance Abuse Treatment (ICD-10-PCS; principal; 2022-02-05)
DX: F10.230 Alcohol dependence with withdrawal, uncomplicated (principal); F14.20 Cocaine dependence, uncomplicated; F31.89 Other bipolar disorder; F12.20 Cannabis dependence, uncomplicated; F17.210 Nicotine dependence, cigarettes, uncomplicated; D64.9 Anemia, unspecified; I10 Essential (primary) hypertension; J45.909 Unspecified asthma, uncomplicated; F19.24 Other psychoactive substance dependence with psychoactive substance-induced mood disorder; Z86.19 Personal history of other infectious and parasitic diseases; Z99.89 Dependence on other enabling machines and devices; Z91.013 Allergy to seafood; Z59.02 Unsheltered homelessness; Z56.0 Unemployment, unspecified; Z91.19 Patient's noncompliance with other medical treatment and regimen
CPT/HCPCS: 36415; 80053; 80164; 85027; 86593; 86780; 87811; C9803-CS; J0475; U0003; U0005

== ENCOUNTER 2022-05-08 09:20 | Inpatient (IN) | payer OTHER ==
[2022-05-08 10:07] VITALS: BMI 34.9
[2022-05-08] MEDS ORDERED: ACETAMINOPHEN 325 MG TABLET (FP) PO PRN (11:17)
[2022-05-08] MEDS ORDERED: BENZOCAINE/MENTHOL (CHLORASEPTIC ) LOZENGE MM PRN (11:17)
[2022-05-08] MEDS ORDERED: NICOTINE 10 MG CARTRIDGE (INHALER) IH PRN (11:17)
[2022-05-08] MEDS ORDERED: LOPERAMIDE HCL 2 MG CAPSULE PO PRN (11:17)
[2022-05-08] MEDS ORDERED: MAGNESIUM CITRATE 300 ML BOTTLE PO PRN (11:17)
[2022-05-08] MEDS ORDERED: DICYCLOMINE HCL 10 MG CAPSULE PO PRN (11:17)
[2022-05-08] MEDS ORDERED: METHOCARBAMOL 500 MG TABLET PO PRN (11:17)
[2022-05-08] MEDS ORDERED: chlordiazePOXIDE HCL 25 MG CAPSULE PO PRN (11:17)
[2022-05-08] MEDS ORDERED: MAG HYDROX/AL HYDROX/SIMETH 30 ML UNIT-DOSE CUP PO PRN (11:17)
[2022-05-08] MEDS ORDERED: methaDONE HCL 10 MG TABLET (FOR DETOX USE ONLY) PO ONE (11:17)
[2022-05-08] MEDS ORDERED: BISMUTH SUBSALICYLATE 262 MG/15 ML BTL PO PRN (11:17)
[2022-05-08] MEDS ORDERED: ONDANSETRON *ODT* 4 MG TABLET SL PRN (11:17)
[2022-05-08] MEDS ORDERED: IBUPROFEN 400 MG TABLET (FP) PO PRN (11:17)
[2022-05-08] MEDS ORDERED: MAGNESIUM HYDROX 2400MG/30ML ORAL SUSPENSION 30 ML CUP PO PRN (11:17)
[2022-05-08] MEDS: PRENATAL VITAMINS W/ FOLIC ACID TABLET (FP) PO SCH (12:06)
[2022-05-08] MEDS: BUDESONIDE/FORMETEROL FUMARATE 80/4.5 mcg INHALER IH SCH ×2 (12:06→23:20)
[2022-05-08] MEDS: chlordiazePOXIDE HCL 25 MG CAPSULE PO SCH ×3 (12:06→22:48)
[2022-05-08] MEDS: NICOTINE 21 MG/24 HOURS TOPICAL PATCH TD SCH (12:09)
[2022-05-08] MEDS: ALBUTEROL SO4 HFA INHALER IH PRN ×2 (13:57→17:25)
[2022-05-08] MEDS: hydrOXYzine PAMOATE 25 MG CAPSULE (FP) PO SCH ×3 (14:00→22:46)
[2022-05-08 14:25] LABS: HEMATOCRIT 36.1 % (32.4-45.2); HEMOGLOBIN 12.3 GM/dL (10.7-15.3); MCH 30.1 pg (25.7-33.7); MCHC 34.2 g/dl (32.0-36.0); MEAN PLT VOLUME 6.8 fl (7.5-11.1); PLATELET COUNT 323 10^3/uL (134-434); RDW 13.7 % (11.6-15.6); WHITE BLOOD COUNT 7.6 K/mm3 (4.0-10.0)
[2022-05-08 15:02] LABS: CALCIUM 8.5 mg/dL (8.5-10.1)
[2022-05-08 15:03] LABS: ALBUMIN 3.5 g/dl (3.4-5.0); BLOOD UREA NITROGEN 16.4 mg/dL (7-18)
[2022-05-08 15:06] LABS: CREATININE 0.8 mg/dL (0.55-1.3)
[2022-05-08 15:08] LABS: BILIRUBIN,TOTAL 0.6 mg/dL (0.2-1); TOT PROT 7.3 g/dl (6.4-8.2)
[2022-05-08] MEDS: IBUPROFEN 600 MG TABLET (FP) PO PRN (19:31)
[2022-05-08] MEDS: traZODone HCL 50 MG TABLET (FP) PO SCH (22:46)
[2022-05-08] MEDS: DIVALPROEX SODIUM 500 MG TABLET E.C. PO SCH (22:46)
[2022-05-08] MEDS: THIAMINE HCL 100 MG TABLET (FP) PO SCH (22:46)
[2022-05-08] MEDS: MELATONIN 5 MG TABLETS PO SCH (22:46)
[2022-05-08] MEDS: risperiDONE 1 MG TABLET PO SCH (22:48)
[2022-05-08] MEDS: PRAZOSIN HCL 1 MG CAPSULE PO SCH (22:48)
[2022-05-09] MEDS: hydrOXYzine PAMOATE 25 MG CAPSULE (FP) PO SCH ×5 (06:06→22:58)
[2022-05-09] MEDS: chlordiazePOXIDE HCL 25 MG CAPSULE PO SCH ×4 (06:06→22:57)
[2022-05-09] MEDS ORDERED: methaDONE HCL 10 MG TABLET (FOR DETOX USE ONLY) ONE (09:33)
[2022-05-09] MEDS: ALBUTEROL SO4 HFA INHALER IH PRN (10:03)
[2022-05-09] MEDS: BUDESONIDE/FORMETEROL FUMARATE 80/4.5 mcg INHALER IH SCH ×2 (10:04→22:58)
[2022-05-09] MEDS: PRENATAL VITAMINS W/ FOLIC ACID TABLET (FP) PO SCH (10:05)
[2022-05-09] MEDS: DIVALPROEX SODIUM 500 MG TABLET E.C. PO SCH ×2 (10:05→22:57)
[2022-05-09] MEDS: NICOTINE 21 MG/24 HOURS TOPICAL PATCH TD SCH (10:33)
[2022-05-09] MEDS: cloNIDine HCL 0.1 MG TABLET PO PRN (13:11)
[2022-05-09] MEDS: ARTIFICIAL TEARS (POLYVINYL ALCOHOL) OPTH DROPS OU PRN (13:38)
[2022-05-09 21:32] LABS: EPI CELLS 8 /uL (0-25.1); HYALINE CASTS 0 /uL (0-3.1); URINE APPEARANCE CLEAR; URINE BACTERIA 145 /uL (0-1359); URINE BILIRUBIN NEGATIVE (NEGATIVE); URINE COLOR YELLOW; URINE GLUCOSE (UA) NEGATIVE (NEGATIVE); URINE KETONE NEGATIVE (NEGATIVE); URINE LEUK ESTERASE 1+ (NEGATIVE); URINE NITRITE NEGATIVE (NEGATIVE); URINE PROTEIN NEGATIVE (NEGATIVE); URINE RBC 26 /uL (0-23.9); URINE WBC 29 /uL (0-25.8)
[2022-05-09] MEDS: MELATONIN 5 MG TABLETS PO SCH (22:56)
[2022-05-09] MEDS: THIAMINE HCL 100 MG TABLET (FP) PO SCH (22:56)
[2022-05-09] MEDS: risperiDONE 1 MG TABLET PO SCH (22:57)
[2022-05-09] MEDS: PRAZOSIN HCL 1 MG CAPSULE PO SCH (22:58)
[2022-05-09] MEDS: traZODone HCL 50 MG TABLET (FP) PO SCH (22:59)
[2022-05-10] MEDS: IBUPROFEN 600 MG TABLET (FP) PO PRN ×2 (01:27→18:00)
[2022-05-10] MEDS: chlordiazePOXIDE HCL 25 MG CAPSULE PO SCH ×4 (06:04→23:08)
[2022-05-10] MEDS: hydrOXYzine PAMOATE 25 MG CAPSULE (FP) PO SCH ×5 (06:05→23:10)
[2022-05-10] MEDS ORDERED: methaDONE HCL 10 MG TABLET (FOR DETOX USE ONLY) PO ONE (10:00)
[2022-05-10] MEDS: PRENATAL VITAMINS W/ FOLIC ACID TABLET (FP) PO SCH (10:37)
[2022-05-10] MEDS: ARTIFICIAL TEARS (POLYVINYL ALCOHOL) OPTH DROPS OU PRN ×2 (10:37→20:05)
[2022-05-10] MEDS: DIVALPROEX SODIUM 500 MG TABLET E.C. PO SCH ×2 (10:38→23:09)
[2022-05-10] MEDS: NICOTINE 21 MG/24 HOURS TOPICAL PATCH TD SCH (10:39)
[2022-05-10] MEDS: BUDESONIDE/FORMETEROL FUMARATE 80/4.5 mcg INHALER IH SCH ×2 (10:41→23:10)
[2022-05-10] MEDS: ACETAMINOPHEN 325 MG TABLET (FP) PO PRN (18:01)
[2022-05-10] MEDS ORDERED: NICOTINE POLACRILEX 2 MG GUM BUC PRN (20:03)
[2022-05-10] MEDS: PRAZOSIN HCL 1 MG CAPSULE PO SCH (23:08)
[2022-05-10] MEDS: risperiDONE 1 MG TABLET PO SCH (23:09)
[2022-05-10] MEDS: cloNIDine HCL 0.1 MG TABLET PO PRN (23:09)
[2022-05-10] MEDS: traZODone HCL 50 MG TABLET (FP) PO SCH (23:09)
[2022-05-10] MEDS: MELATONIN 5 MG TABLETS PO SCH (23:10)
[2022-05-10] MEDS: THIAMINE HCL 100 MG TABLET (FP) PO SCH (23:10)
[2022-05-11] MEDS ORDERED: chlordiazePOXIDE HCL 10 MG CAPSULE PO PRN
[2022-05-11] MEDS: chlordiazePOXIDE HCL 10 MG CAPSULE PO SCH ×4 (06:05→18:01)
[2022-05-11] MEDS: hydrOXYzine PAMOATE 25 MG CAPSULE (FP) PO SCH ×5 (06:10→18:02)
[2022-05-11] MEDS ORDERED: methaDONE HCL 10 MG TABLET (FOR DETOX USE ONLY) ONE (09:34)
[2022-05-11] MEDS ORDERED: SULFAMETHOXAZOLE/TRIMETHOPRIM 800MG/160MG D.S. TABLET PO SCH (10:00)
[2022-05-11] MEDS: ARTIFICIAL TEARS (POLYVINYL ALCOHOL) OPTH DROPS OU PRN ×2 (10:14→18:58)
[2022-05-11] MEDS: BUDESONIDE/FORMETEROL FUMARATE 80/4.5 mcg INHALER IH SCH (10:14)
[2022-05-11] MEDS: DIVALPROEX SODIUM 500 MG TABLET E.C. PO SCH (10:15)
[2022-05-11] MEDS: PRENATAL VITAMINS W/ FOLIC ACID TABLET (FP) PO SCH (10:15)
[2022-05-11] MEDS: NICOTINE 21 MG/24 HOURS TOPICAL PATCH TD SCH (10:17)
[2022-05-11] MEDS: ALBUTEROL SO4 HFA INHALER IH PRN (15:50)
[2022-05-11] MEDS: IBUPROFEN 600 MG TABLET (FP) PO PRN (15:52)
[2022-05-11 17:15] VITALS: BP 132/74; PULSE 66; TEMP 97.6
[2022-05-11] MEDS: ACETAMINOPHEN 325 MG TABLET (FP) PO PRN (20:35)
[2022-05-12] MEDS ORDERED: chlordiazePOXIDE HCL 10 MG CAPSULE PO SCH (05:00)
[2022-05-12] MEDS ORDERED: methaDONE HCL 10 MG TABLET (FOR DETOX USE ONLY) PO ONE (10:00)
[2022-05-13] MEDS ORDERED: chlordiazePOXIDE HCL 10 MG CAPSULE PO ONE (05:00)
== END 2022-05-11 21:15 | disposition left against medical advice (07) | DRG 894 ==
LOC: YASAS 09:20 → Y6N 11:21
PROVIDERS: ADMIT Allergy & Immunology; ATTEND Surgery
PROC: HZ2ZZZZ Detoxification Services for Substance Abuse Treatment (ICD-10-PCS; principal; 2022-05-08)
DX: F11.23 Opioid dependence with withdrawal (principal); F14.20 Cocaine dependence, uncomplicated; N30.00 Acute cystitis without hematuria; F31.89 Other bipolar disorder; F15.20 Other stimulant dependence, uncomplicated; F19.282 Other psychoactive substance dependence with psychoactive substance-induced sleep disorder; F10.230 Alcohol dependence with withdrawal, uncomplicated; F25.9 Schizoaffective disorder, unspecified; F12.20 Cannabis dependence, uncomplicated; F17.210 Nicotine dependence, cigarettes, uncomplicated; F19.24 Other psychoactive substance dependence with psychoactive substance-induced mood disorder; I10 Essential (primary) hypertension; J45.909 Unspecified asthma, uncomplicated; R76.8 Other specified abnormal immunological findings in serum; Z62.810 Personal history of physical and sexual abuse in childhood; Z91.410 Personal history of adult physical and sexual abuse; Z28.310 Unvaccinated for COVID-19
CPT/HCPCS: 36415; 80053; 80164; 81003; 81025; 82962; 85027; 86593; 86780; C9803-CS; J0735; J2794; U0003; U0005

== ENCOUNTER 2022-06-02 12:25 | Inpatient (IN) | payer OTHER ==
[2022-06-02 13:28] VITALS: RESP 18; BMI 34.0
[2022-06-02] MEDS ORDERED: guaiFENesin 200 MG/10 ML 10 ML UNIT-DOSE CUPS PO PRN (15:44)
[2022-06-02] MEDS ORDERED: MAGNESIUM HYDROX 2400MG/30ML ORAL SUSPENSION 30 ML CUP PO PRN (15:44)
[2022-06-02] MEDS ORDERED: MAG HYDROX/AL HYDROX/SIMETH 30 ML UNIT-DOSE CUP PO PRN (15:44)
[2022-06-02] MEDS ORDERED: ACETAMINOPHEN 325 MG TABLET (FP) PO PRN (15:44)
[2022-06-02] MEDS ORDERED: LOPERAMIDE HCL 2 MG CAPSULE PO PRN (15:44)
[2022-06-02] MEDS ORDERED: P-EPHED 60MG/TRIPROLIDI 2.5MG TABLET PO PRN (15:44)
[2022-06-02] MEDS ORDERED: MAGNESIUM CITRATE 300 ML BOTTLE PO PRN (15:44)
[2022-06-02] MEDS: NICOTINE 21 MG/24 HOURS TOPICAL PATCH TD SCH (21:10)
[2022-06-02] MEDS: NICOTINE 7 MG/24 HOURS TOPICAL PATCH TD SCH (21:10)
[2022-06-02] MEDS: hydrOXYzine PAMOATE 25 MG CAPSULE (FP) PO SCH ×2 (21:10→21:12)
[2022-06-02] MEDS: MELATONIN 5 MG TABLETS PO SCH (21:10)
[2022-06-02] MEDS: PRENATAL VITAMINS W/ FOLIC ACID TABLET (FP) PO SCH (21:10)
[2022-06-02] MEDS: THIAMINE HCL 100 MG TABLET (FP) PO SCH (21:11)
[2022-06-03] MEDS: hydrOXYzine PAMOATE 25 MG CAPSULE (FP) PO SCH ×5 (06:52→23:01)
[2022-06-03] MEDS: NICOTINE 10 MG CARTRIDGE (INHALER) IH PRN ×3 (09:44→21:00)
[2022-06-03] MEDS: NICOTINE 21 MG/24 HOURS TOPICAL PATCH TD SCH (09:44)
[2022-06-03] MEDS: NICOTINE 7 MG/24 HOURS TOPICAL PATCH TD SCH (09:44)
[2022-06-03] MEDS: PRENATAL VITAMINS W/ FOLIC ACID TABLET (FP) PO SCH (09:44)
[2022-06-03] MEDS: BUPRENORPHINE/NALOXONE 4 MG/1 MG FILM PACKET SL SCH (09:44)
[2022-06-03 10:51] LABS: HEMATOCRIT 39.6 % (32.4-45.2); HEMOGLOBIN 13.5 GM/dL (10.7-15.3); MCH 29.9 pg (25.7-33.7); MCHC 34.1 g/dl (32.0-36.0); MEAN CELL VOLUME 87.5 fl (80-96); MEAN PLT VOLUME 6.9 fl (7.5-11.1); PLATELET COUNT 358 10^3/uL (134-434); RBC 4.53 M/mm3 (3.60-5.2); RDW 13.7 % (11.6-15.6); WHITE BLOOD COUNT 7.6 K/mm3 (4.0-10.0)
[2022-06-03] MEDS: DIVALPROEX SODIUM 500 MG TABLET E.C. PO SCH ×2 (11:55→21:00)
[2022-06-03] MEDS: ARIPiprazole 10 MG TABLET PO SCH (11:55)
[2022-06-03 12:07] LABS: ALBUMIN 3.7 g/dl (3.4-5.0); CALCIUM 8.9 mg/dL (8.5-10.1)
[2022-06-03 12:11] LABS: CREATININE 0.9 mg/dL (0.55-1.3)
[2022-06-03 12:13] LABS: BILIRUBIN,TOTAL 0.3 mg/dL (0.2-1); TOT PROT 7.4 g/dl (6.4-8.2)
[2022-06-03] MEDS: IBUPROFEN 400 MG TABLET (FP) PO PRN (13:45)
[2022-06-03 18:39] LABS: SYPHILIS W/ RPR CONF REACTIVE (NONREACTIVE)
[2022-06-03] MEDS: THIAMINE HCL 100 MG TABLET (FP) PO SCH (21:00)
[2022-06-03] MEDS: MELATONIN 5 MG TABLETS PO SCH (21:00)
[2022-06-03] MEDS: traZODone HCL 50 MG TABLET (FP) PO SCH (21:01)
[2022-06-03] MEDS: PRAZOSIN HCL 1 MG CAPSULE PO SCH (23:01)
[2022-06-04] MEDS: hydrOXYzine PAMOATE 25 MG CAPSULE (FP) PO SCH ×5 (06:05→21:59)
[2022-06-04] MEDS: BUPRENORPHINE/NALOXONE 4 MG/1 MG FILM PACKET SL SCH (06:06)
[2022-06-04] MEDS: DIVALPROEX SODIUM 500 MG TABLET E.C. PO SCH ×2 (09:45→21:59)
[2022-06-04] MEDS: ARIPiprazole 10 MG TABLET PO SCH (09:45)
[2022-06-04] MEDS: PRENATAL VITAMINS W/ FOLIC ACID TABLET (FP) PO SCH (09:45)
[2022-06-04] MEDS: NICOTINE 7 MG/24 HOURS TOPICAL PATCH TD SCH (09:46)
[2022-06-04] MEDS: NICOTINE 10 MG CARTRIDGE (INHALER) IH PRN ×3 (09:46→21:59)
[2022-06-04] MEDS: NICOTINE 21 MG/24 HOURS TOPICAL PATCH TD SCH (09:46)
[2022-06-04 10:18] LABS: EPI CELLS >36 /uL (0-25.1); HYALINE CASTS 4 /uL (0-3.1); PH,URINE 6.5 (5.0-8.0); URINE APPEARANCE CLOUDY; URINE BACTERIA >9,000 /uL (0-1359); URINE BILIRUBIN NEGATIVE (NEGATIVE); URINE COLOR YELLOW; URINE GLUCOSE (UA) NEGATIVE (NEGATIVE); URINE KETONE TRACE (NEGATIVE); URINE LEUK ESTERASE 3+ (NEGATIVE); URINE NITRITE POSITIVE (NEGATIVE); URINE PROTEIN TRACE (NEGATIVE); URINE RBC 56 /uL (0-23.9); URINE UROBILINOGEN 0.2 mg/dL (0.2-1.0); URINE WBC 1222 /uL (0-25.8)
[2022-06-04] MEDS ORDERED: ONDANSETRON *ODT* 4 MG TABLET SL PRN (14:19)
[2022-06-04] MEDS ORDERED: COLLOIDAL OATMEAL 1 BAR EACH TP PRN (14:28)
[2022-06-04] MEDS ORDERED: ALBUTEROL SO4 HFA INHALER IH PRN (21:12)
[2022-06-04] MEDS: THIAMINE HCL 100 MG TABLET (FP) PO SCH (21:59)
[2022-06-04] MEDS: MELATONIN 5 MG TABLETS PO SCH (21:59)
[2022-06-04] MEDS: PRAZOSIN HCL 1 MG CAPSULE PO SCH (21:59)
[2022-06-04] MEDS: traZODone HCL 50 MG TABLET (FP) PO SCH (21:59)
[2022-06-04] MEDS: BUDESONIDE/FORMETEROL FUMARATE 160/4.5 mcg INHALER IH SCH (22:03)
[2022-06-04] MEDS: IBUPROFEN 400 MG TABLET (FP) PO PRN (23:43)
[2022-06-05] MEDS: hydrOXYzine PAMOATE 25 MG CAPSULE (FP) PO SCH ×3 (06:09→13:32)
[2022-06-05] MEDS: BUPRENORPHINE/NALOXONE 4 MG/1 MG FILM PACKET SL SCH (06:09)
[2022-06-05] MEDS: NICOTINE 10 MG CARTRIDGE (INHALER) IH PRN ×2 (06:58→13:11)
[2022-06-05 07:43] VITALS: TEMP 97.7
[2022-06-05] MEDS: BUDESONIDE/FORMETEROL FUMARATE 160/4.5 mcg INHALER IH SCH (09:59)
[2022-06-05] MEDS: NICOTINE 7 MG/24 HOURS TOPICAL PATCH TD SCH (10:00)
[2022-06-05] MEDS: DIVALPROEX SODIUM 500 MG TABLET E.C. PO SCH (10:00)
[2022-06-05] MEDS: ARIPiprazole 10 MG TABLET PO SCH (10:00)
[2022-06-05] MEDS: NICOTINE 21 MG/24 HOURS TOPICAL PATCH TD SCH (10:01)
[2022-06-05] MEDS: PRENATAL VITAMINS W/ FOLIC ACID TABLET (FP) PO SCH (10:01)
[2022-06-05 10:51] VITALS: BP 123/76; PULSE 75
[2022-06-05] MEDS ORDERED: ARTIFICIAL TEARS (POLYVINYL ALCOHOL) OPTH DROPS OU PRN (11:27)
[2022-06-05] MEDS ORDERED: PENICILLIN G BENZATHINE 2,400,000 UNIT/4 ML PFS IM ONE (11:41)
[2022-06-12] MEDS ORDERED: PENICILLIN G BENZATHINE 2,400,000 UNIT/4 ML PFS IM ONE (11:41)
[2022-06-19] MEDS ORDERED: PENICILLIN G BENZATHINE 2,400,000 UNIT/4 ML PFS IM ONE (11:42)
== END 2022-06-05 15:25 | disposition left against medical advice (07) | DRG 894 ==
LOC: SUATTDRO 12:25 → YASAS 12:25 → Y5N 15:55
PROVIDERS: ADMIT Allergy & Immunology; ATTEND Psychiatry & Neurology Pain Medicine
PROC: HZ42ZZZ Group Counseling for Substance Abuse Treatment, Cognitive-Behavioral (ICD-10-PCS; principal; 2022-06-02)
DX: F10.20 Alcohol dependence, uncomplicated (principal); F13.20 Sedative, hypnotic or anxiolytic dependence, uncomplicated; F14.20 Cocaine dependence, uncomplicated; N39.0 Urinary tract infection, site not specified; F12.20 Cannabis dependence, uncomplicated; F17.210 Nicotine dependence, cigarettes, uncomplicated; F43.10 Post-traumatic stress disorder, unspecified; F25.0 Schizoaffective disorder, bipolar type; F41.9 Anxiety disorder, unspecified; J45.909 Unspecified asthma, uncomplicated; H04.129 Dry eye syndrome of unspecified lacrimal gland; M54.59 Other low back pain; G89.29 Other chronic pain; Z86.69 Personal history of other diseases of the nervous system and sense organs; Z91.013 Allergy to seafood; Z62.810 Personal history of physical and sexual abuse in childhood; Z86.19 Personal history of other infectious and parasitic diseases; Z91.51 Personal history of suicidal behavior; Z56.0 Unemployment, unspecified
CPT/HCPCS: 36415; 80053; 81003; 81025; 85027; 86593; 86780; 86803; 87086; 87186; 87811; C9803-CS; U0003; U0005

== ENCOUNTER 2022-07-07 10:02 | Inpatient (IN) | payer OTHER ==
[2022-07-07 11:36] VITALS: RESP 18; BMI 34.4
[2022-07-07] MEDS ORDERED: ACETAMINOPHEN 325 MG TABLET (FP) PO PRN (12:37)
[2022-07-07] MEDS ORDERED: MAGNESIUM HYDROX 2400MG/30ML ORAL SUSPENSION 30 ML CUP PO PRN (12:37)
[2022-07-07] MEDS ORDERED: MAG HYDROX/AL HYDROX/SIMETH 30 ML UNIT-DOSE CUP PO PRN (12:37)
[2022-07-07] MEDS ORDERED: P-EPHED 60MG/TRIPROLIDI 2.5MG TABLET PO PRN (12:37)
[2022-07-07] MEDS ORDERED: LOPERAMIDE HCL 2 MG CAPSULE PO PRN (12:37)
[2022-07-07] MEDS ORDERED: IBUPROFEN 400 MG TABLET (FP) PO PRN (12:37)
[2022-07-07] MEDS ORDERED: MAGNESIUM CITRATE 300 ML BOTTLE PO PRN (12:37)
[2022-07-07] MEDS ORDERED: guaiFENesin 200 MG/10 ML 10 ML UNIT-DOSE CUPS PO PRN (12:37)
[2022-07-07] MEDS ORDERED: NICOTINE 10 MG CARTRIDGE (INHALER) IH PRN (12:37)
[2022-07-07] MEDS: PRENATAL VITAMINS W/ FOLIC ACID TABLET (FP) PO SCH (15:34)
[2022-07-07] MEDS: DIVALPROEX SODIUM 500 MG TABLET E.C. PO SCH ×2 (15:34→21:21)
[2022-07-07] MEDS: BUDESONIDE/FORMETEROL FUMARATE 80/4.5 mcg INHALER IH SCH ×2 (15:35→21:26)
[2022-07-07] MEDS: NICOTINE 21 MG/24 HOURS TOPICAL PATCH TD SCH (17:13)
[2022-07-07] MEDS: NICOTINE 7 MG/24 HOURS TOPICAL PATCH TD SCH (17:14)
[2022-07-07] MEDS: hydrOXYzine PAMOATE 25 MG CAPSULE (FP) PO SCH ×3 (17:14→21:22)
[2022-07-07] MEDS: PRAZOSIN HCL 1 MG CAPSULE PO SCH (21:22)
[2022-07-07] MEDS: MELATONIN 5 MG TABLETS PO SCH (21:22)
[2022-07-07] MEDS: traZODone HCL 50 MG TABLET (FP) PO SCH (21:25)
[2022-07-07] MEDS: THIAMINE HCL 100 MG TABLET (FP) PO SCH (21:26)
[2022-07-07] MEDS: ALBUTEROL SO4 HFA INHALER IH PRN (21:27)
[2022-07-07] MEDS ORDERED: PRAZOSIN HCL 1 MG CAPSULE PO SCH (22:00)
[2022-07-08] MEDS: hydrOXYzine PAMOATE 25 MG CAPSULE (FP) PO SCH ×5 (07:01→21:17)
[2022-07-08] MEDS ORDERED: ARIPiprazole 5 MG TABLET ONE (09:24)
[2022-07-08] MEDS: DIVALPROEX SODIUM 500 MG TABLET E.C. PO SCH ×2 (10:38→21:17)
[2022-07-08] MEDS: ARIPiprazole 10 MG TABLET PO SCH (10:39)
[2022-07-08] MEDS: NICOTINE 21 MG/24 HOURS TOPICAL PATCH TD SCH (10:39)
[2022-07-08] MEDS: BUDESONIDE/FORMETEROL FUMARATE 80/4.5 mcg INHALER IH SCH ×2 (10:39→21:17)
[2022-07-08] MEDS: PRENATAL VITAMINS W/ FOLIC ACID TABLET (FP) PO SCH (10:39)
[2022-07-08] MEDS: NICOTINE 7 MG/24 HOURS TOPICAL PATCH TD SCH (10:39)
[2022-07-08 10:48] LABS: BLOOD UREA NITROGEN 16.8 mg/dL (7-18)
[2022-07-08 10:50] LABS: ALBUMIN 3.4 g/dl (3.4-5.0)
[2022-07-08 10:53] LABS: BILIRUBIN,TOTAL 0.5 mg/dL (0.2-1)
[2022-07-08 11:02] LABS: HEMOGLOBIN 13.3 GM/dL (10.7-15.3); MCH 29.9 pg (25.7-33.7); MCHC 33.4 g/dl (32.0-36.0); MEAN CELL VOLUME 89.5 fl (80-96); MEAN PLT VOLUME 7.4 fl (7.5-11.1); PLATELET COUNT 287 10^3/uL (134-434); RBC 4.47 M/mm3 (3.60-5.2); RDW 14.2 % (11.6-15.6); WHITE BLOOD COUNT 6.4 K/mm3 (4.0-10.0)
[2022-07-08 12:24] LABS: SYPHILIS W/ RPR CONF REACTIVE (NONREACTIVE)
[2022-07-08] MEDS: THIAMINE HCL 100 MG TABLET (FP) PO SCH (21:17)
[2022-07-08] MEDS: traZODone HCL 50 MG TABLET (FP) PO SCH (21:17)
[2022-07-08] MEDS: PRAZOSIN HCL 1 MG CAPSULE PO SCH (21:17)
[2022-07-08] MEDS: MELATONIN 5 MG TABLETS PO SCH (21:19)
[2022-07-09] MEDS: hydrOXYzine PAMOATE 25 MG CAPSULE (FP) PO SCH ×3 (06:29→14:25)
[2022-07-09 07:35] VITALS: BP 131/88; PULSE 70; TEMP 96.6
[2022-07-09] MEDS: PRENATAL VITAMINS W/ FOLIC ACID TABLET (FP) PO SCH (10:24)
[2022-07-09] MEDS: BUDESONIDE/FORMETEROL FUMARATE 80/4.5 mcg INHALER IH SCH (10:25)
[2022-07-09] MEDS: ALBUTEROL SO4 HFA INHALER IH PRN (10:25)
[2022-07-09] MEDS: ARIPiprazole 10 MG TABLET PO SCH (10:25)
[2022-07-09] MEDS: DIVALPROEX SODIUM 500 MG TABLET E.C. PO SCH (10:25)
[2022-07-09] MEDS: NICOTINE 21 MG/24 HOURS TOPICAL PATCH TD SCH (10:26)
[2022-07-09] MEDS: NICOTINE 7 MG/24 HOURS TOPICAL PATCH TD SCH (10:27)
[2022-07-09 14:11] LABS: EPI CELLS 18 /uL (0-25.1); HYALINE CASTS 3 /uL (0-3.1); URINE APPEARANCE CLEAR; URINE BACTERIA 112 /uL (0-1359); URINE BILIRUBIN NEGATIVE (NEGATIVE); URINE COLOR YELLOW; URINE GLUCOSE (UA) NEGATIVE (NEGATIVE); URINE KETONE TRACE (NEGATIVE); URINE LEUK ESTERASE 1+ (NEGATIVE); URINE NITRITE NEGATIVE (NEGATIVE); URINE PROTEIN NEGATIVE (NEGATIVE); URINE UROBILINOGEN 0.2 mg/dL (0.2-1.0); URINE WBC 44 /uL (0-25.8)
[2022-07-09 14:16] LABS: URINE RBC 26.3 /uL (0-23.9)
== END 2022-07-09 15:40 | disposition left against medical advice (07) | DRG 894 ==
LOC: YASAS 10:02 → Y5N 14:08
PROVIDERS: ADMIT Allergy & Immunology; ATTEND Psychiatry & Neurology Pain Medicine
PROC: HZ2ZZZZ Detoxification Services for Substance Abuse Treatment (ICD-10-PCS; principal; 2022-07-07)
DX: F11.20 Opioid dependence, uncomplicated (principal); F14.20 Cocaine dependence, uncomplicated; F16.20 Hallucinogen dependence, uncomplicated; F13.20 Sedative, hypnotic or anxiolytic dependence, uncomplicated; F19.282 Other psychoactive substance dependence with psychoactive substance-induced sleep disorder; F19.280 Other psychoactive substance dependence with psychoactive substance-induced anxiety disorder; F10.20 Alcohol dependence, uncomplicated; F17.210 Nicotine dependence, cigarettes, uncomplicated; F19.24 Other psychoactive substance dependence with psychoactive substance-induced mood disorder; F25.0 Schizoaffective disorder, bipolar type; F42.9 Obsessive-compulsive disorder, unspecified; F41.9 Anxiety disorder, unspecified; F32.A Depression, unspecified; I10 Essential (primary) hypertension; M54.50 Low back pain, unspecified; G89.29 Other chronic pain; Z62.810 Personal history of physical and sexual abuse in childhood; Z86.2 Personal history of diseases of the blood and blood-forming organs and certain disorders involving the immune mechanism; Z86.69 Personal history of other diseases of the nervous system and sense organs
CPT/HCPCS: 36415; 80053; 81003; 85027; 86593; 86780; 86803; 87811; C9803-CS; U0003; U0005

== ENCOUNTER 2022-08-27 12:13 | Inpatient (IN) | payer OTHER ==
[2022-08-27] MEDS ORDERED: BISMUTH SUBSALICYLATE 524 MG/30 ML PO PRN (15:03)
[2022-08-27] MEDS ORDERED: methaDONE HCL 10 MG TABLET (FOR DETOX USE ONLY) PO ONE ×2 (15:03→17:00)
[2022-08-27] MEDS ORDERED: BENZOCAINE/MENTHOL (CHLORASEPTIC ) LOZENGE MM PRN (15:03)
[2022-08-27] MEDS ORDERED: DICYCLOMINE HCL 10 MG CAPSULE PO PRN (15:03)
[2022-08-27] MEDS ORDERED: IBUPROFEN 400 MG TABLET (FP) PO PRN (15:03)
[2022-08-27] MEDS ORDERED: MAGNESIUM CITRATE 300 ML BOTTLE PO PRN (15:03)
[2022-08-27] MEDS ORDERED: ONDANSETRON *ODT* 4 MG TABLET SL PRN (15:03)
[2022-08-27] MEDS ORDERED: MAG HYDROX/AL HYDROX/SIMETH 30 ML UNIT-DOSE CUP PO PRN (15:03)
[2022-08-27] MEDS ORDERED: LOPERAMIDE HCL 2 MG CAPSULE PO PRN (15:03)
[2022-08-27] MEDS ORDERED: ACETAMINOPHEN 325 MG TABLET (FP) PO PRN ×2 (15:03)
[2022-08-27] MEDS ORDERED: MAGNESIUM HYDROX 2400MG/30ML ORAL SUSPENSION 30 ML CUP PO PRN (15:03)
[2022-08-27] MEDS ORDERED: NALOXONE HCL (KLOXXADO) 8 MG SPRAY NS PRN (15:03)
[2022-08-27] MEDS ORDERED: cloNIDine HCL 0.1 MG TABLET PO PRN (15:03)
[2022-08-27] MEDS: chlordiazePOXIDE HCL 25 MG CAPSULE PO SCH ×2 (17:23→22:20)
[2022-08-27] MEDS: NICOTINE 21 MG/24 HOURS TOPICAL PATCH TD SCH (17:25)
[2022-08-27] MEDS: PRENATAL VITAMINS W/ FOLIC ACID TABLET (FP) PO SCH (17:25)
[2022-08-27] MEDS: ALBUTEROL SO4 HFA INHALER IH PRN ×2 (17:25→22:24)
[2022-08-27] MEDS: NICOTINE 10 MG CARTRIDGE (INHALER) IH PRN (17:25)
[2022-08-27 19:42] VITALS: BMI 34.1
[2022-08-27] MEDS: IBUPROFEN 600 MG TABLET (FP) PO PRN (22:22)
[2022-08-27] MEDS: BUDESONIDE/FORMETEROL FUMARATE 80/4.5 mcg INHALER IH SCH (22:24)
[2022-08-27] MEDS: THIAMINE HCL 100 MG TABLET (FP) PO SCH (22:24)
[2022-08-27] MEDS: MELATONIN 5 MG TABLETS PO SCH (22:24)
[2022-08-27] MEDS: METHOCARBAMOL 500 MG TABLET PO PRN (22:26)
[2022-08-28] MEDS: chlordiazePOXIDE HCL 25 MG CAPSULE PO SCH ×4 (05:34→22:16)
[2022-08-28] MEDS: BUDESONIDE/FORMETEROL FUMARATE 80/4.5 mcg INHALER IH SCH ×2 (10:11→22:15)
[2022-08-28] MEDS: ALBUTEROL SO4 HFA INHALER IH PRN (10:11)
[2022-08-28] MEDS: METHOCARBAMOL 500 MG TABLET PO PRN (10:11)
[2022-08-28] MEDS: PRENATAL VITAMINS W/ FOLIC ACID TABLET (FP) PO SCH (10:11)
[2022-08-28] MEDS: NICOTINE 21 MG/24 HOURS TOPICAL PATCH TD SCH (10:13)
[2022-08-28] MEDS: DIVALPROEX SODIUM 500 MG TABLET E.C. PO SCH ×2 (10:42→22:16)
[2022-08-28] MEDS: ARIPiprazole 10 MG TABLET PO SCH (10:42)
[2022-08-28 11:37] LABS: HEMATOCRIT 35.4 % (32.4-45.2); HEMOGLOBIN 12.4 GM/dL (10.7-15.3); MCH 30.8 pg (25.7-33.7); MEAN PLT VOLUME 6.6 fl (7.5-11.1); PLATELET COUNT 320 10^3/uL (134-434); RBC 4.02 M/mm3 (3.60-5.2); RDW 13.4 % (11.6-15.6); WHITE BLOOD COUNT 7.9 K/mm3 (4.0-10.0)
[2022-08-28 11:48] LABS: ALBUMIN 3.6 g/dl (3.4-5.0); BLOOD UREA NITROGEN 16.3 mg/dL (7-18); CALCIUM 8.7 mg/dL (8.5-10.1)
[2022-08-28 11:51] LABS: CREATININE 0.9 mg/dL (0.55-1.3)
[2022-08-28 11:53] LABS: BILIRUBIN,TOTAL 0.3 mg/dL (0.2-1); TOT PROT 7.2 g/dl (6.4-8.2)
[2022-08-28 17:03] VITALS: RESP 18
[2022-08-28] MEDS ORDERED: PRAZOSIN HCL 1 MG CAPSULE PO SCH (22:00)
[2022-08-28] MEDS ORDERED: traZODone HCL 50 MG TABLET (FP) PO SCH (22:00)
[2022-08-28] MEDS: MELATONIN 5 MG TABLETS PO SCH (22:16)
[2022-08-28] MEDS: THIAMINE HCL 100 MG TABLET (FP) PO SCH (22:16)
[2022-08-28] MEDS: IBUPROFEN 600 MG TABLET (FP) PO PRN (23:21)
[2022-08-28] MEDS: NICOTINE 10 MG CARTRIDGE (INHALER) IH PRN (23:21)
[2022-08-29] MEDS: chlordiazePOXIDE HCL 25 MG CAPSULE PO SCH ×2 (06:04→12:20)
[2022-08-29] MEDS: IBUPROFEN 600 MG TABLET (FP) PO PRN (06:06)
[2022-08-29] MEDS: NICOTINE 10 MG CARTRIDGE (INHALER) IH PRN (06:07)
[2022-08-29 09:21] VITALS: BP 126/80; PULSE 69; TEMP 97.1
[2022-08-29] MEDS ORDERED: methaDONE HCL 10 MG TABLET (FOR DETOX USE ONLY) PO ONE (10:00)
[2022-08-29] MEDS: DIVALPROEX SODIUM 500 MG TABLET E.C. PO SCH (12:19)
[2022-08-29] MEDS: ARIPiprazole 10 MG TABLET PO SCH (12:19)
[2022-08-29] MEDS: NICOTINE 21 MG/24 HOURS TOPICAL PATCH TD SCH (12:19)
[2022-08-29] MEDS: BUDESONIDE/FORMETEROL FUMARATE 80/4.5 mcg INHALER IH SCH (12:20)
[2022-08-29] MEDS: PRENATAL VITAMINS W/ FOLIC ACID TABLET (FP) PO SCH (12:20)
[2022-08-30] MEDS ORDERED: chlordiazePOXIDE HCL 10 MG CAPSULE PO SCH (05:00)
[2022-08-31] MEDS ORDERED: chlordiazePOXIDE HCL 10 MG CAPSULE PO SCH (05:00)
[2022-08-31] MEDS ORDERED: methaDONE HCL 10 MG TABLET (FOR DETOX USE ONLY) PO ONE (10:00)
[2022-09-01] MEDS ORDERED: chlordiazePOXIDE HCL 10 MG CAPSULE PO ONE (05:00)
== END 2022-08-29 10:32 | disposition left against medical advice (07) | DRG 894 ==
LOC: YASAS 12:13 → Y3N 15:54
PROVIDERS: ADMIT Allergy & Immunology; ATTEND Surgery
PROC: HZ2ZZZZ Detoxification Services for Substance Abuse Treatment (ICD-10-PCS; principal; 2022-08-27)
DX: F11.23 Opioid dependence with withdrawal (principal); F14.20 Cocaine dependence, uncomplicated; F15.20 Other stimulant dependence, uncomplicated; F10.230 Alcohol dependence with withdrawal, uncomplicated; F12.20 Cannabis dependence, uncomplicated; F17.210 Nicotine dependence, cigarettes, uncomplicated; F25.9 Schizoaffective disorder, unspecified; F31.9 Bipolar disorder, unspecified; F41.9 Anxiety disorder, unspecified; J45.909 Unspecified asthma, uncomplicated; Z86.19 Personal history of other infectious and parasitic diseases; Z86.69 Personal history of other diseases of the nervous system and sense organs
CPT/HCPCS: 36415; 80053; 80164; 85027; 86593; 86780; C9803-CS; U0003; U0005

== ENCOUNTER 2022-09-21 09:09 | Inpatient (IN) | payer OTHER ==
[2022-09-21 09:54] VITALS: BP 145/84; PULSE 81; RESP 16; TEMP 98.3; BMI 38.6
[2022-09-21] MEDS ORDERED: POLYETHYLENE GLYCOL (HEALTHYLAX) 3350 17 GM PACKET PO PRN (10:27)
[2022-09-21] MEDS ORDERED: NICOTINE POLACRILEX 2 MG GUM BUC PRN (10:27)
[2022-09-21] MEDS ORDERED: DICYCLOMINE HCL 10 MG CAPSULE PO PRN (10:27)
[2022-09-21] MEDS ORDERED: ONDANSETRON *ODT* 4 MG TABLET SL PRN (10:27)
[2022-09-21] MEDS ORDERED: IBUPROFEN 600 MG TABLET (FP) PO PRN (10:27)
[2022-09-21] MEDS ORDERED: BENZOCAINE/MENTHOL (CHLORASEPTIC ) LOZENGE MM PRN (10:27)
[2022-09-21] MEDS ORDERED: MAGNESIUM HYDROX 2400MG/30ML ORAL SUSPENSION 30 ML CUP PO PRN (10:27)
[2022-09-21] MEDS ORDERED: IBUPROFEN 400 MG TABLET (FP) PO PRN (10:27)
[2022-09-21] MEDS ORDERED: LOPERAMIDE HCL 2 MG CAPSULE PO PRN (10:27)
[2022-09-21] MEDS ORDERED: chlordiazePOXIDE HCL 25 MG CAPSULE PO PRN (10:27)
[2022-09-21] MEDS ORDERED: MAG HYDROX/AL HYDROX/SIMETH 30 ML UNIT-DOSE CUP PO PRN (10:27)
[2022-09-21] MEDS ORDERED: METHOCARBAMOL 500 MG TABLET PO PRN (10:27)
[2022-09-21] MEDS ORDERED: NALOXONE HCL (KLOXXADO) 8 MG SPRAY NS PRN (10:27)
[2022-09-21] MEDS ORDERED: BISMUTH SUBSALICYLATE 524 MG/30 ML PO PRN (10:27)
[2022-09-21] MEDS ORDERED: ACETAMINOPHEN 325 MG TABLET (FP) PO PRN ×2 (10:27)
[2022-09-21] MEDS ORDERED: hydrOXYzine PAMOATE 25 MG CAPSULE (FP) PO PRN (10:27)
[2022-09-21] MEDS ORDERED: chlordiazePOXIDE HCL 25 MG CAPSULE PO SCH (11:00)
[2022-09-21] MEDS ORDERED: ALBUTEROL SO4 HFA INHALER IH PRN (14:29)
[2022-09-21] MEDS ORDERED: THIAMINE HCL 100 MG TABLET (FP) PO SCH (22:00)
[2022-09-21] MEDS ORDERED: BUDESONIDE/FORMETEROL FUMARATE 80/4.5 mcg INHALER IH SCH (22:00)
[2022-09-21] MEDS ORDERED: MELATONIN 5 MG TABLETS PO SCH (22:00)
[2022-09-22] MEDS ORDERED: PRENATAL VITAMINS W/ FOLIC ACID TABLET (FP) PO SCH (10:00)
[2022-09-22] MEDS ORDERED: NICOTINE 21 MG/24 HOURS TOPICAL PATCH TD SCH (10:00)
[2022-09-23] MEDS ORDERED: chlordiazePOXIDE HCL 25 MG CAPSULE PO SCH (05:00)
[2022-09-24] MEDS ORDERED: chlordiazePOXIDE HCL 10 MG CAPSULE PO PRN
[2022-09-24] MEDS ORDERED: chlordiazePOXIDE HCL 10 MG CAPSULE PO SCH (05:00)
[2022-09-25] MEDS ORDERED: chlordiazePOXIDE HCL 10 MG CAPSULE PO SCH (05:00)
[2022-09-26] MEDS ORDERED: chlordiazePOXIDE HCL 10 MG CAPSULE PO ONE (05:00)
== END 2022-09-21 11:15 | disposition home or self-care (01) | DRG 897 ==
LOC: YASAS 09:09 → Y3N 10:46
PROVIDERS: ADMIT Allergy & Immunology; ATTEND Surgery
PROC: HZ2ZZZZ Detoxification Services for Substance Abuse Treatment (ICD-10-PCS; principal; 2022-09-21)
DX: F10.230 Alcohol dependence with withdrawal, uncomplicated (principal); F14.20 Cocaine dependence, uncomplicated; F11.10 Opioid abuse, uncomplicated; F12.20 Cannabis dependence, uncomplicated; F17.210 Nicotine dependence, cigarettes, uncomplicated; F25.9 Schizoaffective disorder, unspecified; F31.9 Bipolar disorder, unspecified; I10 Essential (primary) hypertension; J45.909 Unspecified asthma, uncomplicated; R73.03 Prediabetes; Z91.013 Allergy to seafood
CPT/HCPCS: 81025; C9803-CS; U0003; U0005

== ENCOUNTER 2022-11-13 10:13 | Inpatient (IN) | payer OTHER ==
[2022-11-13 10:36] VITALS: BMI 32.5
[2022-11-13] MEDS ORDERED: MAGNESIUM HYDROX 2400MG/30ML ORAL SUSPENSION 30 ML CUP PO PRN (11:13)
[2022-11-13] MEDS ORDERED: POLYETHYLENE GLYCOL (HEALTHYLAX) 3350 17 GM PACKET PO PRN (11:13)
[2022-11-13] MEDS ORDERED: IBUPROFEN 600 MG TABLET (FP) PO PRN (11:13)
[2022-11-13] MEDS ORDERED: BISMUTH SUBSALICYLATE 524 MG/30 ML PO PRN (11:13)
[2022-11-13] MEDS ORDERED: MAG HYDROX/AL HYDROX/SIMETH 30 ML UNIT-DOSE CUP PO PRN (11:13)
[2022-11-13] MEDS ORDERED: ONDANSETRON *ODT* 4 MG TABLET SL PRN (11:13)
[2022-11-13] MEDS ORDERED: NALOXONE HCL (KLOXXADO) 8 MG SPRAY NS PRN (11:13)
[2022-11-13] MEDS ORDERED: NICOTINE 10 MG CARTRIDGE (INHALER) IH PRN (11:13)
[2022-11-13] MEDS ORDERED: LOPERAMIDE HCL 2 MG CAPSULE PO PRN (11:13)
[2022-11-13] MEDS ORDERED: BENZOCAINE/MENTHOL (CHLORASEPTIC ) LOZENGE MM PRN (11:13)
[2022-11-13] MEDS ORDERED: METHOCARBAMOL 500 MG TABLET PO PRN (11:13)
[2022-11-13] MEDS ORDERED: ACETAMINOPHEN 325 MG TABLET (FP) PO PRN ×2 (11:13)
[2022-11-13] MEDS ORDERED: IBUPROFEN 400 MG TABLET (FP) PO PRN (11:13)
[2022-11-13] MEDS ORDERED: DICYCLOMINE HCL 10 MG CAPSULE PO PRN (11:13)
[2022-11-13] MEDS ORDERED: cloNIDine HCL 0.1 MG TABLET PO PRN (11:18)
[2022-11-13] MEDS ORDERED: diazePAM 5 MG TABLET PO PRN (11:20)
[2022-11-13] MEDS ORDERED: ALBUTEROL SO4 HFA INHALER IH PRN (11:21)
[2022-11-13] MEDS ORDERED: methaDONE HCL 10 MG TABLET (FOR DETOX USE ONLY) ONE (11:47)
[2022-11-13] MEDS ORDERED: methaDONE HCL 10 MG TABLET (FOR DETOX USE ONLY) PO ONE (12:00)
[2022-11-13] MEDS: diazePAM 5 MG TABLET PO SCH ×2 (18:55→22:08)
[2022-11-13] MEDS: hydrOXYzine PAMOATE 25 MG CAPSULE (FP) PO PRN ×2 (18:55→22:09)
[2022-11-13] MEDS ORDERED: MELATONIN 5 MG TABLETS PO SCH (22:00)
[2022-11-13] MEDS ORDERED: THIAMINE HCL 100 MG TABLET (FP) PO SCH (22:00)
[2022-11-14] MEDS: diazePAM 5 MG TABLET PO SCH ×2 (06:13→10:33)
[2022-11-14 09:49] VITALS: RESP 16
[2022-11-14] MEDS ORDERED: PRENATAL VITAMINS W/ FOLIC ACID TABLET (FP) PO SCH (10:00)
[2022-11-14] MEDS ORDERED: ARIPiprazole 10 MG TABLET PO SCH (12:00)
[2022-11-14] MEDS ORDERED: DIVALPROEX SODIUM 500 MG TABLET E.C. PO SCH (12:00)
[2022-11-14 12:49] LABS: HEMATOCRIT 37.8 % (32.4-45.2); HEMOGLOBIN 12.5 GM/dL (10.7-15.3); MCH 29.5 pg (25.7-33.7); MCHC 33.1 g/dl (32.0-36.0); MEAN CELL VOLUME 89.2 fl (80-96); MEAN PLT VOLUME 7.3 fl (7.5-11.1); PLATELET COUNT 360 10^3/uL (134-434); RBC 4.24 M/mm3 (3.60-5.2); RDW 13.7 % (11.6-15.6); WHITE BLOOD COUNT 7.6 K/mm3 (4.0-10.0)
[2022-11-14 12:56] LABS: CALCIUM 8.5 mg/dL (8.5-10.1)
[2022-11-14 12:57] LABS: ALBUMIN 3.1 g/dl (3.4-5.0); BLOOD UREA NITROGEN 11.9 mg/dL (7-18)
[2022-11-14 13:02] LABS: BILIRUBIN,TOTAL 0.2 mg/dL (0.2-1); TOT PROT 6.4 g/dl (6.4-8.2)
[2022-11-14 13:15] VITALS: BP 141/79; PULSE 65; TEMP 97.7
[2022-11-14] MEDS ORDERED: PRAZOSIN HCL 1 MG CAPSULE PO SCH (22:00)
[2022-11-14] MEDS ORDERED: traZODone HCL 50 MG TABLET (FP) PO SCH (22:00)
[2022-11-15] MEDS ORDERED: diazePAM 5 MG TABLET PO SCH (06:00)
[2022-11-15] MEDS ORDERED: methaDONE HCL 10 MG TABLET (FOR DETOX USE ONLY) PO ONE (10:00)
[2022-11-16] MEDS ORDERED: diazePAM 5 MG TABLET PO SCH (06:00)
[2022-11-17] MEDS ORDERED: diazePAM 5 MG TABLET PO ONE (06:00)
[2022-11-17] MEDS ORDERED: methaDONE HCL 10 MG TABLET (FOR DETOX USE ONLY) PO ONE (10:00)
== END 2022-11-14 15:00 | disposition left against medical advice (07) | DRG 894 ==
LOC: YASAS 10:13 → Y6N 11:48
PROVIDERS: ADMIT Allergy & Immunology; ATTEND Surgery
PROC: HZ2ZZZZ Detoxification Services for Substance Abuse Treatment (ICD-10-PCS; principal; 2022-11-13)
DX: F11.23 Opioid dependence with withdrawal (principal); U07.1 COVID-19; F14.20 Cocaine dependence, uncomplicated; F10.230 Alcohol dependence with withdrawal, uncomplicated; F12.20 Cannabis dependence, uncomplicated; F17.210 Nicotine dependence, cigarettes, uncomplicated; F31.9 Bipolar disorder, unspecified; F25.0 Schizoaffective disorder, bipolar type; D50.9 Iron deficiency anemia, unspecified; I10 Essential (primary) hypertension; J45.909 Unspecified asthma, uncomplicated; A53.9 Syphilis, unspecified
CPT/HCPCS: 36415; 80053; 81025; 85027; 86593; 86780; 87811; C9803-CS; U0003; U0005

== ENCOUNTER 2022-12-11 10:23 | Inpatient (IN) | payer OTHER ==
[2022-12-11 11:05] VITALS: BMI 32.1
[2022-12-11] MEDS ORDERED: IBUPROFEN 400 MG TABLET (FP) PO PRN (11:54)
[2022-12-11] MEDS ORDERED: BISMUTH SUBSALICYLATE 524 MG/30 ML PO PRN (11:54)
[2022-12-11] MEDS ORDERED: ONDANSETRON *ODT* 4 MG TABLET SL PRN (11:54)
[2022-12-11] MEDS ORDERED: METHOCARBAMOL 500 MG TABLET PO PRN (11:54)
[2022-12-11] MEDS ORDERED: POLYETHYLENE GLYCOL (HEALTHYLAX) 3350 17 GM PACKET PO PRN (11:54)
[2022-12-11] MEDS ORDERED: ACETAMINOPHEN 325 MG TABLET (FP) PO PRN ×2 (11:54)
[2022-12-11] MEDS ORDERED: MAG HYDROX/AL HYDROX/SIMETH 30 ML UNIT-DOSE CUP PO PRN (11:54)
[2022-12-11] MEDS ORDERED: LOPERAMIDE HCL 2 MG CAPSULE PO PRN (11:54)
[2022-12-11] MEDS ORDERED: NALOXONE HCL (KLOXXADO) 8 MG SPRAY NS PRN (11:54)
[2022-12-11] MEDS ORDERED: hydrOXYzine PAMOATE 25 MG CAPSULE (FP) PO PRN (11:54)
[2022-12-11] MEDS ORDERED: BENZOCAINE/MENTHOL (CHLORASEPTIC ) LOZENGE MM PRN (11:54)
[2022-12-11] MEDS ORDERED: DICYCLOMINE HCL 10 MG CAPSULE PO PRN (11:54)
[2022-12-11] MEDS ORDERED: MAGNESIUM HYDROX 2400MG/30ML ORAL SUSPENSION 30 ML CUP PO PRN (11:54)
[2022-12-11] MEDS ORDERED: ALBUTEROL SO4 HFA INHALER IH PRN (11:57)
[2022-12-11] MEDS: NICOTINE 21 MG/24 HOURS TOPICAL PATCH TD SCH (14:51)
[2022-12-11] MEDS: PRENATAL VITAMINS W/ FOLIC ACID TABLET (FP) PO SCH (14:51)
[2022-12-11 15:26] LABS: HEMATOCRIT 34.3 % (32.4-45.2); HEMOGLOBIN 11.7 GM/dL (10.7-15.3); MCH 30.1 pg (25.7-33.7); MCHC 34.2 g/dl (32.0-36.0); MEAN PLT VOLUME 6.8 fl (7.5-11.1); PLATELET COUNT 314 10^3/uL (134-434); RDW 13.4 % (11.6-15.6); WHITE BLOOD COUNT 6.7 K/mm3 (4.0-10.0)
[2022-12-11 15:38] LABS: BLOOD UREA NITROGEN 13.9 mg/dL (7-18); CALCIUM 8.6 mg/dL (8.5-10.1)
[2022-12-11 15:39] LABS: ALBUMIN 3.3 g/dl (3.4-5.0)
[2022-12-11 15:42] LABS: CREATININE 0.8 mg/dL (0.55-1.3)
[2022-12-11 15:43] LABS: BILIRUBIN,TOTAL 0.2 mg/dL (0.2-1)
[2022-12-11 15:44] LABS: TOT PROT 6.9 g/dl (6.4-8.2)
[2022-12-11] MEDS: IBUPROFEN 600 MG TABLET (FP) PO PRN (18:24)
[2022-12-11] MEDS ORDERED: MELATONIN 5 MG TABLETS PO SCH (22:00)
[2022-12-11] MEDS: BUDESONIDE/FORMETEROL FUMARATE 80/4.5 mcg INHALER IH SCH (22:35)
[2022-12-11] MEDS: PRAZOSIN HCL 1 MG CAPSULE PO SCH (22:35)
[2022-12-11] MEDS: THIAMINE HCL 100 MG TABLET (FP) PO SCH (22:35)
[2022-12-12] MEDS ORDERED: DIVALPROEX SODIUM 500 MG TABLET E.C. PO SCH (10:00)
[2022-12-12] MEDS ORDERED: ARIPiprazole 5 MG TABLET PO SCH (10:00)
[2022-12-12] MEDS: DIVALPROEX SODIUM 500 MG TABLET E.C. PO SCH ×2 (10:12→22:07)
[2022-12-12] MEDS: BUDESONIDE/FORMETEROL FUMARATE 80/4.5 mcg INHALER IH SCH ×2 (10:12→22:06)
[2022-12-12] MEDS: PRENATAL VITAMINS W/ FOLIC ACID TABLET (FP) PO SCH (10:12)
[2022-12-12] MEDS: NICOTINE 21 MG/24 HOURS TOPICAL PATCH TD SCH (10:12)
[2022-12-12] MEDS ORDERED: chlordiazePOXIDE HCL 25 MG CAPSULE PO PRN (10:39)
[2022-12-12] MEDS: chlordiazePOXIDE HCL 25 MG CAPSULE PO SCH ×3 (10:51→22:07)
[2022-12-12] MEDS: NICOTINE 10 MG CARTRIDGE (INHALER) IH PRN ×2 (13:42→20:57)
[2022-12-12] MEDS ORDERED: traZODone HCL 50 MG TABLET (FP) PO SCH (22:00)
[2022-12-12] MEDS: PRAZOSIN HCL 1 MG CAPSULE PO SCH (22:05)
[2022-12-12] MEDS: THIAMINE HCL 100 MG TABLET (FP) PO SCH (22:06)
[2022-12-13] MEDS: chlordiazePOXIDE HCL 25 MG CAPSULE PO SCH ×2 (05:21→10:12)
[2022-12-13] MEDS: NICOTINE 10 MG CARTRIDGE (INHALER) IH PRN (09:09)
[2022-12-13] MEDS: BUDESONIDE/FORMETEROL FUMARATE 80/4.5 mcg INHALER IH SCH (09:10)
[2022-12-13] MEDS ORDERED: ARIPiprazole 5 MG TABLET PO SCH (10:00)
[2022-12-13] MEDS: DIVALPROEX SODIUM 500 MG TABLET E.C. PO SCH (10:11)
[2022-12-13] MEDS: IBUPROFEN 600 MG TABLET (FP) PO PRN (10:11)
[2022-12-13] MEDS: PRENATAL VITAMINS W/ FOLIC ACID TABLET (FP) PO SCH (10:12)
[2022-12-13] MEDS: NICOTINE 21 MG/24 HOURS TOPICAL PATCH TD SCH (10:12)
[2022-12-13 12:52] VITALS: BP 147/93; PULSE 81; RESP 18; TEMP 97.1
[2022-12-14] MEDS ORDERED: chlordiazePOXIDE HCL 25 MG CAPSULE PO SCH (05:00)
[2022-12-15] MEDS ORDERED: chlordiazePOXIDE HCL 10 MG CAPSULE PO PRN
[2022-12-15] MEDS ORDERED: chlordiazePOXIDE HCL 10 MG CAPSULE PO SCH (05:00)
[2022-12-16] MEDS ORDERED: chlordiazePOXIDE HCL 10 MG CAPSULE PO SCH (05:00)
[2022-12-17] MEDS ORDERED: chlordiazePOXIDE HCL 10 MG CAPSULE PO ONE (05:00)
== END 2022-12-13 14:00 | disposition left against medical advice (07) | DRG 894 ==
LOC: YASAS 10:23 → Y3N 12:55
PROVIDERS: ADMIT Allergy & Immunology; ATTEND Surgery
PROC: HZ2ZZZZ Detoxification Services for Substance Abuse Treatment (ICD-10-PCS; principal; 2022-12-11)
DX: F10.230 Alcohol dependence with withdrawal, uncomplicated (principal); F14.20 Cocaine dependence, uncomplicated; F19.282 Other psychoactive substance dependence with psychoactive substance-induced sleep disorder; F12.20 Cannabis dependence, uncomplicated; F17.210 Nicotine dependence, cigarettes, uncomplicated; F25.9 Schizoaffective disorder, unspecified; I10 Essential (primary) hypertension; J45.909 Unspecified asthma, uncomplicated; Z62.810 Personal history of physical and sexual abuse in childhood; Z86.2 Personal history of diseases of the blood and blood-forming organs and certain disorders involving the immune mechanism; Z91.410 Personal history of adult physical and sexual abuse; Z91.013 Allergy to seafood; Z59.00 Homelessness unspecified; Z56.0 Unemployment, unspecified
CPT/HCPCS: 36415; 80053; 80164; 81025; 85027; 86593; 86780; C9803-CS; U0003; U0005

== ENCOUNTER 2023-05-03 10:14 | Inpatient (IN) | payer OTHER ==
[2023-05-03 10:44] VITALS: BMI 31.6
[2023-05-03] MEDS ORDERED: diazePAM 5 MG TABLET PO PRN (16:49)
[2023-05-03] MEDS ORDERED: POLYETHYLENE GLYCOL (HEALTHYLAX) 3350 17 GM PACKET PO PRN (16:49)
[2023-05-03] MEDS ORDERED: ACETAMINOPHEN 325 MG TABLET (FP) PO PRN (16:49)
[2023-05-03] MEDS ORDERED: guaiFENesin 600 MG TABLET.ER (FP) PO PRN (16:49)
[2023-05-03] MEDS ORDERED: BISMUTH SUBSALICYLATE 524 MG/30 ML PO PRN (16:49)
[2023-05-03] MEDS ORDERED: MAG HYDROX/AL HYDROX/SIMETH 30 ML UNIT-DOSE CUP PO PRN (16:49)
[2023-05-03] MEDS ORDERED: NICOTINE POLACRILEX 2 MG GUM BUC PRN (16:49)
[2023-05-03] MEDS ORDERED: LOPERAMIDE HCL 2 MG CAPSULE PO PRN (16:49)
[2023-05-03] MEDS ORDERED: ONDANSETRON *ODT* 4 MG TABLET SL PRN (16:49)
[2023-05-03] MEDS ORDERED: DICYCLOMINE HCL 10 MG CAPSULE PO PRN (16:49)
[2023-05-03] MEDS ORDERED: IBUPROFEN 400 MG TABLET (FP) PO PRN (16:49)
[2023-05-03] MEDS ORDERED: MAGNESIUM HYDROX 2400MG/30ML ORAL SUSPENSION 30 ML CUP PO PRN (16:49)
[2023-05-03] MEDS ORDERED: NALOXONE HCL 0.4 MG/ML VIAL IM PRN (16:49)
[2023-05-03] MEDS ORDERED: NALOXONE HCL (KLOXXADO) 8 MG SPRAY NS PRN (16:49)
[2023-05-03] MEDS ORDERED: BENZONATATE 200 MG CAPSULE PO PRN (16:49)
[2023-05-03] MEDS ORDERED: BENZOCAINE/MENTHOL (CHLORASEPTIC ) LOZENGE MM PRN (16:49)
[2023-05-03] MEDS: diazePAM 5 MG TABLET PO SCH ×2 (17:41→22:34)
[2023-05-03] MEDS: METHOCARBAMOL 500 MG TABLET PO PRN (22:34)
[2023-05-03] MEDS: THIAMINE HCL 100 MG TABLET (FP) PO SCH (22:34)
[2023-05-03] MEDS: MELATONIN 5 MG TABLETS PO SCH (22:34)
[2023-05-04] MEDS: diazePAM 5 MG TABLET PO SCH ×4 (05:47→22:38)
[2023-05-04] MEDS: PRENATAL VITAMINS W/ FOLIC ACID TABLET (FP) PO SCH (10:44)
[2023-05-04] MEDS: NICOTINE 21 MG/24 HOURS TOPICAL PATCH TD SCH (10:44)
[2023-05-04 11:37] LABS: HEMATOCRIT 38.4 % (32.4-45.2); HEMOGLOBIN 12.7 GM/dL (10.7-15.3); MCH 29.5 pg (25.7-33.7); MCHC 33.1 g/dl (32.0-36.0); MEAN PLT VOLUME 7.3 fl (7.5-11.1); PLATELET COUNT 339 10^3/uL (134-434); RBC 4.31 M/mm3 (3.60-5.2); RDW 14.3 % (11.6-15.6)
[2023-05-04 12:51] LABS: POTASSIUM 4.5 mmol/L (3.5-5.1)
[2023-05-04 12:55] LABS: ALBUMIN 3.3 g/dl (3.4-5.0); BLOOD UREA NITROGEN 15.5 mg/dL (7-18)
[2023-05-04 12:58] LABS: CREATININE 0.9 mg/dL (0.55-1.3)
[2023-05-04 13:01] LABS: BILIRUBIN,TOTAL 0.4 mg/dL (0.2-1); TOT PROT 6.8 g/dl (6.4-8.2)
[2023-05-04] MEDS ORDERED: ALBUTEROL SO4 HFA INHALER IH PRN (14:37)
[2023-05-04] MEDS: MELATONIN 5 MG TABLETS PO SCH (22:37)
[2023-05-04] MEDS: THIAMINE HCL 100 MG TABLET (FP) PO SCH (22:38)
[2023-05-04] MEDS: METHOCARBAMOL 500 MG TABLET PO PRN (22:38)
[2023-05-04] MEDS: BUDESONIDE/FORMETEROL FUMARATE 80/4.5 mcg INHALER IH SCH (22:39)
[2023-05-05] MEDS: METHOCARBAMOL 500 MG TABLET PO PRN ×2 (05:32→11:58)
[2023-05-05] MEDS: diazePAM 5 MG TABLET PO SCH ×3 (05:32→22:14)
[2023-05-05] MEDS: NICOTINE 21 MG/24 HOURS TOPICAL PATCH TD SCH (09:34)
[2023-05-05] MEDS: PRENATAL VITAMINS W/ FOLIC ACID TABLET (FP) PO SCH (09:34)
[2023-05-05] MEDS: BUDESONIDE/FORMETEROL FUMARATE 80/4.5 mcg INHALER IH SCH ×2 (09:35→22:14)
[2023-05-05] MEDS: hydrOXYzine PAMOATE 25 MG CAPSULE (FP) PO PRN ×2 (11:58→16:53)
[2023-05-05] MEDS: THIAMINE HCL 100 MG TABLET (FP) PO SCH (22:14)
[2023-05-05] MEDS: MELATONIN 5 MG TABLETS PO SCH (22:15)
[2023-05-06] MEDS: diazePAM 5 MG TABLET PO SCH ×2 (05:19→17:33)
[2023-05-06] MEDS: METHOCARBAMOL 500 MG TABLET PO PRN ×2 (05:20→22:28)
[2023-05-06] MEDS: PRENATAL VITAMINS W/ FOLIC ACID TABLET (FP) PO SCH (09:50)
[2023-05-06] MEDS: NICOTINE 21 MG/24 HOURS TOPICAL PATCH TD SCH (09:52)
[2023-05-06] MEDS: BUDESONIDE/FORMETEROL FUMARATE 80/4.5 mcg INHALER IH SCH ×2 (09:52→22:28)
[2023-05-06] MEDS: hydrOXYzine PAMOATE 25 MG CAPSULE (FP) PO PRN (13:41)
[2023-05-06] MEDS: IBUPROFEN 600 MG TABLET (FP) PO PRN (17:34)
[2023-05-06] MEDS: MELATONIN 5 MG TABLETS PO SCH (22:28)
[2023-05-06] MEDS: THIAMINE HCL 100 MG TABLET (FP) PO SCH (22:28)
[2023-05-06 23:34] VITALS: RESP 16
[2023-05-07] MEDS ORDERED: diazePAM 5 MG TABLET PO ONE (06:00)
[2023-05-07] MEDS: IBUPROFEN 600 MG TABLET (FP) PO PRN (06:04)
[2023-05-07] MEDS: METHOCARBAMOL 500 MG TABLET PO PRN (06:05)
[2023-05-07 06:30] VITALS: BP 134/77; PULSE 60; TEMP 97.1
[2023-05-07] MEDS: NICOTINE 21 MG/24 HOURS TOPICAL PATCH TD SCH (11:10)
[2023-05-07] MEDS: PRENATAL VITAMINS W/ FOLIC ACID TABLET (FP) PO SCH (11:11)
[2023-05-07] MEDS: BUDESONIDE/FORMETEROL FUMARATE 80/4.5 mcg INHALER IH SCH (11:11)
== END 2023-05-07 10:30 | disposition home or self-care (01) | DRG 897 ==
LOC: YASAS 10:14 → Y3N 17:02
PROVIDERS: ADMIT Allergy & Immunology; ATTEND Surgery
PROC: HZ2ZZZZ Detoxification Services for Substance Abuse Treatment (ICD-10-PCS; principal; 2023-05-03)
DX: F11.23 Opioid dependence with withdrawal (principal); F14.20 Cocaine dependence, uncomplicated; F10.230 Alcohol dependence with withdrawal, uncomplicated; F12.20 Cannabis dependence, uncomplicated; F17.210 Nicotine dependence, cigarettes, uncomplicated; F31.9 Bipolar disorder, unspecified; F20.9 Schizophrenia, unspecified; F41.9 Anxiety disorder, unspecified; I10 Essential (primary) hypertension; J45.909 Unspecified asthma, uncomplicated; M54.50 Low back pain, unspecified; G89.29 Other chronic pain
CPT/HCPCS: 36415; 80053; 81025; 85027; 86593; 86780; 87635; 87811

== ENCOUNTER 2023-05-27 19:06 | Inpatient (IN) | payer OTHER ==
[2023-05-27 19:58] VITALS: BMI 31.3
[2023-05-27] MEDS ORDERED: diazePAM 5 MG TABLET PO SCH (23:00)
[2023-05-27] MEDS ORDERED: MAGNESIUM HYDROX 2400MG/30ML ORAL SUSPENSION 30 ML CUP PO PRN (23:17)
[2023-05-27] MEDS ORDERED: ONDANSETRON *ODT* 4 MG TABLET SL PRN (23:17)
[2023-05-27] MEDS ORDERED: IBUPROFEN 400 MG TABLET (FP) PO PRN (23:17)
[2023-05-27] MEDS ORDERED: guaiFENesin 600 MG TABLET.ER (FP) PO PRN (23:17)
[2023-05-27] MEDS ORDERED: POLYETHYLENE GLYCOL (HEALTHYLAX) 3350 17 GM PACKET PO PRN (23:17)
[2023-05-27] MEDS ORDERED: P-EPHED 60MG/TRIPROLIDI 2.5MG TABLET PO PRN (23:17)
[2023-05-27] MEDS ORDERED: NALOXONE HCL 0.4 MG/ML VIAL IM PRN (23:17)
[2023-05-27] MEDS ORDERED: BENZONATATE 200 MG CAPSULE PO PRN (23:17)
[2023-05-27] MEDS ORDERED: NALOXONE HCL (KLOXXADO) 8 MG SPRAY NS PRN (23:17)
[2023-05-27] MEDS ORDERED: BENZOCAINE/MENTHOL (CHLORASEPTIC ) LOZENGE MM PRN (23:17)
[2023-05-27] MEDS ORDERED: ACETAMINOPHEN 325 MG TABLET (FP) PO PRN (23:17)
[2023-05-27] MEDS ORDERED: BISMUTH SUBSALICYLATE 524 MG/30 ML PO PRN (23:17)
[2023-05-27] MEDS ORDERED: LOPERAMIDE HCL 2 MG CAPSULE PO PRN (23:17)
[2023-05-27] MEDS ORDERED: DICYCLOMINE HCL 10 MG CAPSULE PO PRN (23:17)
[2023-05-27] MEDS ORDERED: MAG HYDROX/AL HYDROX/SIMETH 30 ML UNIT-DOSE CUP PO PRN (23:17)
[2023-05-27] MEDS ORDERED: IBUPROFEN 600 MG TABLET (FP) PO PRN (23:17)
[2023-05-27] MEDS ORDERED: diazePAM 5 MG TABLET PO PRN (23:19)
[2023-05-28] MEDS: VITAMINS A AND D TOPICAL OINTMENT 60 GM TUBE TP SCH ×5 (01:06→23:15)
[2023-05-28] MEDS: diazePAM 5 MG TABLET PO SCH ×5 (01:08→22:13)
[2023-05-28] MEDS: METHOCARBAMOL 500 MG TABLET PO PRN (05:27)
[2023-05-28] MEDS: hydrOXYzine PAMOATE 25 MG CAPSULE (FP) PO PRN (05:27)
[2023-05-28] MEDS ORDERED: diazePAM 5 MG TABLET PO PRN (09:34)
[2023-05-28] MEDS: PRENATAL VITAMINS W/ FOLIC ACID TABLET (FP) PO SCH (11:03)
[2023-05-28] MEDS: BUDESONIDE/FORMETEROL FUMARATE 80/4.5 mcg INHALER IH SCH ×2 (11:03→22:13)
[2023-05-28 11:39] LABS: HEMOGLOBIN 13.3 GM/dL (10.7-15.3); MCH 30.3 pg (25.7-33.7); MCHC 34.9 g/dl (32.0-36.0); MEAN CELL VOLUME 86.8 fl (80-96); MEAN PLT VOLUME 6.9 fl (7.5-11.1); PLATELET COUNT 344 10^3/uL (134-434); RBC 4.38 M/mm3 (3.60-5.2); RDW 13.5 % (11.6-15.6); WHITE BLOOD COUNT 6.9 K/mm3 (4.0-10.0)
[2023-05-28 12:18] LABS: CHLORIDE 109 mmol/L (98-107); POTASSIUM 4.6 mmol/L (3.5-5.1); SODIUM 141 mmol/L (136-145)
[2023-05-28 12:23] LABS: ANION GAP 4 MMOL/L (8-16); BLOOD UREA NITROGEN 15.1 mg/dL (7-18); CALCIUM 8.5 mg/dL (8.5-10.1); CO2 28 mmol/L (21-32)
[2023-05-28 12:24] LABS: ALBUMIN 3.2 g/dl (3.4-5.0); GLUCOSE,RANDOM 107 mg/dL (74-106); SGPT/ALT 12 U/L (13-61)
[2023-05-28 12:26] LABS: SGOT/AST < 3 U/L (15-37)
[2023-05-28 12:27] LABS: CREATININE 0.9 mg/dL (0.55-1.3)
[2023-05-28 12:28] LABS: BILIRUBIN,TOTAL 0.2 mg/dL (0.2-1)
[2023-05-28 12:29] LABS: TOT PROT 6.8 g/dl (6.4-8.2)
[2023-05-28 12:30] LABS: ALK PHOS 72 U/L (45-117)
[2023-05-28] MEDS: DIVALPROEX SODIUM 250 MG TABLET E.C. PO SCH (22:12)
[2023-05-28] MEDS: PRAZOSIN HCL 1 MG CAPSULE PO SCH (22:12)
[2023-05-28] MEDS: MELATONIN 5 MG TABLETS PO SCH (22:13)
[2023-05-28] MEDS: risperiDONE 1 MG TABLET PO SCH (22:13)
[2023-05-28] MEDS: THIAMINE HCL 100 MG TABLET (FP) PO SCH (22:13)
[2023-05-29] MEDS: diazePAM 5 MG TABLET PO SCH ×4 (05:29→22:13)
[2023-05-29] MEDS: VITAMINS A AND D TOPICAL OINTMENT 60 GM TUBE TP SCH ×3 (05:30→17:21)
[2023-05-29] MEDS ORDERED: diazePAM 5 MG TABLET PO SCH (06:00)
[2023-05-29] MEDS: risperiDONE 1 MG TABLET PO SCH ×2 (10:05→22:11)
[2023-05-29] MEDS: BUDESONIDE/FORMETEROL FUMARATE 80/4.5 mcg INHALER IH SCH ×2 (10:05→22:14)
[2023-05-29] MEDS: DIVALPROEX SODIUM 250 MG TABLET E.C. PO SCH ×2 (10:05→22:12)
[2023-05-29] MEDS: PRENATAL VITAMINS W/ FOLIC ACID TABLET (FP) PO SCH (10:05)
[2023-05-29] MEDS: PRAZOSIN HCL 1 MG CAPSULE PO SCH (22:11)
[2023-05-29] MEDS: THIAMINE HCL 100 MG TABLET (FP) PO SCH (22:12)
[2023-05-29] MEDS: MELATONIN 5 MG TABLETS PO SCH (22:14)
[2023-05-30] MEDS: VITAMINS A AND D TOPICAL OINTMENT 60 GM TUBE TP SCH ×4 (00:41→17:32)
[2023-05-30] MEDS: diazePAM 5 MG TABLET PO SCH ×3 (05:39→21:20)
[2023-05-30] MEDS ORDERED: diazePAM 5 MG TABLET PO SCH (06:00)
[2023-05-30] MEDS: risperiDONE 1 MG TABLET PO SCH ×2 (10:04→21:19)
[2023-05-30] MEDS: PRENATAL VITAMINS W/ FOLIC ACID TABLET (FP) PO SCH (10:04)
[2023-05-30] MEDS: BUDESONIDE/FORMETEROL FUMARATE 80/4.5 mcg INHALER IH SCH ×2 (10:04→21:20)
[2023-05-30] MEDS: DIVALPROEX SODIUM 250 MG TABLET E.C. PO SCH ×2 (10:04→21:19)
[2023-05-30] MEDS: hydrOXYzine PAMOATE 25 MG CAPSULE (FP) PO PRN (19:06)
[2023-05-30] MEDS: MELATONIN 5 MG TABLETS PO SCH (21:17)
[2023-05-30] MEDS: THIAMINE HCL 100 MG TABLET (FP) PO SCH (21:17)
[2023-05-30] MEDS: PRAZOSIN HCL 1 MG CAPSULE PO SCH (21:17)
[2023-05-31] MEDS: VITAMINS A AND D TOPICAL OINTMENT 60 GM TUBE TP SCH ×5 (01:18→23:09)
[2023-05-31] MEDS: diazePAM 5 MG TABLET PO SCH ×2 (05:35→17:16)
[2023-05-31] MEDS ORDERED: diazePAM 5 MG TABLET PO ONE (06:00)
[2023-05-31] MEDS: hydrOXYzine PAMOATE 25 MG CAPSULE (FP) PO PRN ×2 (07:13→20:17)
[2023-05-31 09:08] VITALS: RESP 18
[2023-05-31] MEDS: DIVALPROEX SODIUM 250 MG TABLET E.C. PO SCH ×2 (09:09→21:46)
[2023-05-31] MEDS: risperiDONE 1 MG TABLET PO SCH ×2 (09:09→21:46)
[2023-05-31] MEDS: PRENATAL VITAMINS W/ FOLIC ACID TABLET (FP) PO SCH (09:09)
[2023-05-31] MEDS: BUDESONIDE/FORMETEROL FUMARATE 80/4.5 mcg INHALER IH SCH ×2 (09:09→21:46)
[2023-05-31] MEDS: NICOTINE POLACRILEX 2 MG GUM BUC PRN ×2 (16:29→19:56)
[2023-05-31] MEDS: ALBUTEROL SO4 HFA INHALER IH PRN ×2 (17:15→20:16)
[2023-05-31 21:00] VITALS: BP 142/85; PULSE 84; TEMP 96.9
[2023-05-31] MEDS: THIAMINE HCL 100 MG TABLET (FP) PO SCH (21:46)
[2023-05-31] MEDS: MELATONIN 5 MG TABLETS PO SCH (21:46)
[2023-05-31] MEDS: PRAZOSIN HCL 1 MG CAPSULE PO SCH (21:46)
[2023-05-31] MEDS: METHOCARBAMOL 500 MG TABLET PO PRN (21:47)
[2023-06-01] MEDS ORDERED: diazePAM 5 MG TABLET PO ONE (06:00)
== END 2023-05-31 23:16 | disposition left against medical advice (07) | DRG 894 ==
LOC: YASAS 19:06 → Y3N 23:31
PROVIDERS: ADMIT Allergy & Immunology; ATTEND Surgery
PROC: HZ2ZZZZ Detoxification Services for Substance Abuse Treatment (ICD-10-PCS; principal; 2023-05-27)
DX: F10.230 Alcohol dependence with withdrawal, uncomplicated (principal); F14.20 Cocaine dependence, uncomplicated; F11.23 Opioid dependence with withdrawal; F12.20 Cannabis dependence, uncomplicated; F25.0 Schizoaffective disorder, bipolar type; F19.24 Other psychoactive substance dependence with psychoactive substance-induced mood disorder; F43.10 Post-traumatic stress disorder, unspecified; R76.8 Other specified abnormal immunological findings in serum
CPT/HCPCS: 36415; 80053; 80164; 81025; 85027; 86593; 86780; 87635

== ENCOUNTER 2023-06-23 12:51 | Inpatient (IN) | payer OTHER ==
[2023-06-23 13:50] VITALS: BMI 31.0
[2023-06-23] MEDS ORDERED: ACETAMINOPHEN 325 MG TABLET (FP) PO PRN (14:46)
[2023-06-23] MEDS ORDERED: hydrOXYzine PAMOATE 25 MG CAPSULE (FP) PO PRN (14:46)
[2023-06-23] MEDS ORDERED: NALOXONE HCL (KLOXXADO) 8 MG SPRAY NS PRN (14:46)
[2023-06-23] MEDS ORDERED: MAG HYDROX/AL HYDROX/SIMETH 30 ML UNIT-DOSE CUP PO PRN (14:46)
[2023-06-23] MEDS ORDERED: guaiFENesin 600 MG TABLET.ER (FP) PO PRN (14:46)
[2023-06-23] MEDS ORDERED: POLYETHYLENE GLYCOL (HEALTHYLAX) 3350 17 GM PACKET PO PRN (14:46)
[2023-06-23] MEDS ORDERED: COLLOIDAL OATMEAL 1 BAR EACH TP PRN (14:46)
[2023-06-23] MEDS ORDERED: AMMONIUM LACTATE 12% LOTION 225 GM BOTTLE TP PRN (14:46)
[2023-06-23] MEDS ORDERED: IBUPROFEN 600 MG TABLET (FP) PO PRN (14:46)
[2023-06-23] MEDS ORDERED: MAGNESIUM HYDROX 2400MG/30ML ORAL SUSPENSION 30 ML CUP PO PRN (14:46)
[2023-06-23] MEDS ORDERED: P-EPHED 60MG/TRIPROLIDI 2.5MG TABLET PO PRN (14:46)
[2023-06-23] MEDS ORDERED: IBUPROFEN 400 MG TABLET (FP) PO PRN (14:46)
[2023-06-23] MEDS ORDERED: BENZOCAINE/MENTHOL (CHLORASEPTIC ) LOZENGE MM PRN (14:46)
[2023-06-23] MEDS ORDERED: NALOXONE HCL 0.4 MG/ML VIAL IM PRN (14:46)
[2023-06-23] MEDS ORDERED: BENZONATATE 200 MG CAPSULE PO PRN (14:46)
[2023-06-23] MEDS ORDERED: LOPERAMIDE HCL 2 MG CAPSULE PO PRN (14:46)
[2023-06-23] MEDS: risperiDONE 1 MG TABLET PO SCH (21:19)
[2023-06-23] MEDS: DIVALPROEX SODIUM 250 MG TABLET E.C. PO SCH (21:19)
[2023-06-23] MEDS: PRAZOSIN HCL 1 MG CAPSULE PO SCH (21:20)
[2023-06-23] MEDS: MELATONIN 5 MG TABLETS PO SCH (21:20)
[2023-06-23] MEDS: THIAMINE HCL 100 MG TABLET (FP) PO SCH (21:20)
[2023-06-24 07:18] VITALS: RESP 18
[2023-06-24] MEDS: DIVALPROEX SODIUM 250 MG TABLET E.C. PO SCH ×2 (09:56→21:15)
[2023-06-24] MEDS: PRENATAL VITAMINS W/ FOLIC ACID TABLET (FP) PO SCH (09:56)
[2023-06-24] MEDS: LIDOCAINE 5% TOPICAL PATCH TP SCH (09:56)
[2023-06-24 13:48] LABS: EPI CELLS 21 /uL (0-25.1); HYALINE CASTS 2 /uL (0-3.1); PH,URINE 5.5 (5.0-8.0); URINE APPEARANCE CLOUDY; URINE BACTERIA 3957 /uL (0-1359); URINE BILIRUBIN NEGATIVE (NEGATIVE); URINE COLOR YELLOW; URINE GLUCOSE (UA) NEGATIVE (NEGATIVE); URINE KETONE NEGATIVE (NEGATIVE); URINE LEUK ESTERASE 3+ (NEGATIVE); URINE NITRITE POSITIVE (NEGATIVE); URINE PROTEIN NEGATIVE (NEGATIVE); URINE RBC 17 /uL (0-23.9); URINE UROBILINOGEN 0.2 mg/dL (0.2-1.0); URINE WBC 1053 /uL (0-25.8)
[2023-06-24] MEDS: THIAMINE HCL 100 MG TABLET (FP) PO SCH (21:15)
[2023-06-24] MEDS: MELATONIN 5 MG TABLETS PO SCH (21:15)
[2023-06-24] MEDS: risperiDONE 1 MG TABLET PO SCH (21:15)
[2023-06-24] MEDS: LIDOCAINE PATCH REMOVAL MC SCH (21:17)
[2023-06-24] MEDS: PRAZOSIN HCL 1 MG CAPSULE PO SCH (22:03)
[2023-06-25 07:58] VITALS: TEMP 97.6
[2023-06-25] MEDS: DIVALPROEX SODIUM 250 MG TABLET E.C. PO SCH ×2 (09:55→21:31)
[2023-06-25] MEDS: PRENATAL VITAMINS W/ FOLIC ACID TABLET (FP) PO SCH (09:55)
[2023-06-25] MEDS: LIDOCAINE 5% TOPICAL PATCH TP SCH (09:56)
[2023-06-25] MEDS: THIAMINE HCL 100 MG TABLET (FP) PO SCH (21:30)
[2023-06-25] MEDS: MELATONIN 5 MG TABLETS PO SCH (21:30)
[2023-06-25] MEDS: risperiDONE 1 MG TABLET PO SCH (21:31)
[2023-06-25] MEDS: PRAZOSIN HCL 1 MG CAPSULE PO SCH (21:31)
[2023-06-25] MEDS: LIDOCAINE PATCH REMOVAL MC SCH (21:31)
[2023-06-25] MEDS ORDERED: ALBUTEROL SO4 HFA INHALER IH PRN (21:41)
[2023-06-25] MEDS: BUDESONIDE/FORMETEROL FUMARATE 80/4.5 mcg INHALER IH SCH (21:47)
[2023-06-26] MEDS: DIVALPROEX SODIUM 250 MG TABLET E.C. PO SCH (10:24)
[2023-06-26] MEDS: BUDESONIDE/FORMETEROL FUMARATE 80/4.5 mcg INHALER IH SCH (10:24)
[2023-06-26] MEDS: PRENATAL VITAMINS W/ FOLIC ACID TABLET (FP) PO SCH (10:24)
[2023-06-26] MEDS: LIDOCAINE 5% TOPICAL PATCH TP SCH (10:26)
[2023-06-26] MEDS ORDERED: DIVALPROEX SODIUM 250 MG TABLET E.C. PO ONE (12:45)
[2023-06-26] MEDS ORDERED: risperiDONE 1 MG TABLET PO ONE (12:45)
[2023-06-26 14:38] LABS: EPI CELLS 21 /uL (0-25.1); HYALINE CASTS 1 /uL (0-3.1); PH,URINE 7.5 (5.0-8.0); URINE APPEARANCE CLEAR; URINE BACTERIA >9,000 /uL (0-1359); URINE BILIRUBIN NEGATIVE (NEGATIVE); URINE COLOR YELLOW; URINE GLUCOSE (UA) NEGATIVE (NEGATIVE); URINE KETONE NEGATIVE (NEGATIVE); URINE LEUK ESTERASE 2+ (NEGATIVE); URINE NITRITE NEGATIVE (NEGATIVE); URINE PROTEIN NEGATIVE (NEGATIVE); URINE RBC 38 /uL (0-23.9); URINE UROBILINOGEN 0.2 mg/dL (0.2-1.0); URINE WBC 31 /uL (0-25.8)
[2023-06-26] MEDS: NITROFURANTOIN MACROCRYSTAL 50 MG CAPSULE (FP) PO SCH ×2 (15:27→17:27)
[2023-06-26 18:15] VITALS: BP 132/97; PULSE 75
[2023-06-26] MEDS ORDERED: traZODone HCL 50 MG TABLET (FP) PO SCH (22:00)
[2023-06-26] MEDS ORDERED: DIVALPROEX SODIUM 250 MG TABLET E.C. PO SCH (22:00)
[2023-06-27] MEDS ORDERED: risperiDONE 1 MG TABLET PO SCH (10:00)
== END 2023-06-26 18:14 | disposition left against medical advice (07) | DRG 894 ==
LOC: YASAS 12:51 → Y5N 14:48
PROVIDERS: ADMIT Allergy & Immunology; ATTEND Psychiatry & Neurology Pain Medicine
PROC: HZ42ZZZ Group Counseling for Substance Abuse Treatment, Cognitive-Behavioral (ICD-10-PCS; principal; 2023-06-23)
DX: F10.20 Alcohol dependence, uncomplicated (principal); F11.20 Opioid dependence, uncomplicated; F14.20 Cocaine dependence, uncomplicated; N39.0 Urinary tract infection, site not specified; R56.1 Post traumatic seizures; F17.210 Nicotine dependence, cigarettes, uncomplicated; I10 Essential (primary) hypertension; J45.909 Unspecified asthma, uncomplicated; E11.9 Type 2 diabetes mellitus without complications; R13.10 Dysphagia, unspecified; Z87.820 Personal history of traumatic brain injury; Z59.00 Homelessness unspecified; Z56.0 Unemployment, unspecified
CPT/HCPCS: 80164; 81003; 81025; 87086; 87186; 87635

== ENCOUNTER 2023-11-26 10:13 | Inpatient (IN) | payer OTHER ==
[2023-11-26] MEDS ORDERED: ALBUTEROL SO4 HFA INHALER IH PRN (10:54)
[2023-11-26] MEDS ORDERED: NALOXONE HCL 0.4 MG/ML VIAL IM PRN (11:18)
[2023-11-26] MEDS ORDERED: DICYCLOMINE HCL 10 MG CAPSULE PO PRN (11:18)
[2023-11-26] MEDS ORDERED: IBUPROFEN 400 MG TABLET (FP) PO PRN (11:18)
[2023-11-26] MEDS ORDERED: ONDANSETRON *ODT* 4 MG TABLET SL PRN (11:18)
[2023-11-26] MEDS ORDERED: BENZOCAINE/MENTHOL (CHLORASEPTIC ) LOZENGE MM PRN (11:18)
[2023-11-26] MEDS ORDERED: NALOXONE HCL (KLOXXADO) 8 MG SPRAY NS PRN (11:18)
[2023-11-26] MEDS ORDERED: ACETAMINOPHEN 325 MG TABLET (FP) PO PRN (11:18)
[2023-11-26] MEDS ORDERED: MAG HYDROX/AL HYDROX/SIMETH 30 ML UNIT-DOSE CUP PO PRN (11:18)
[2023-11-26] MEDS ORDERED: guaiFENesin 600 MG TABLET.ER (FP) PO PRN (11:18)
[2023-11-26] MEDS ORDERED: POLYETHYLENE GLYCOL (HEALTHYLAX) 3350 17 GM PACKET PO PRN (11:18)
[2023-11-26] MEDS ORDERED: BENZONATATE 200 MG CAPSULE PO PRN (11:18)
[2023-11-26] MEDS ORDERED: P-EPHED 60MG/TRIPROLIDI 2.5MG TABLET PO PRN (11:18)
[2023-11-26] MEDS ORDERED: MAGNESIUM HYDROX 2400MG/30ML ORAL SUSPENSION 30 ML CUP PO PRN (11:18)
[2023-11-26] MEDS ORDERED: IBUPROFEN 600 MG TABLET (FP) PO PRN (11:18)
[2023-11-26] MEDS ORDERED: BISMUTH SUBSALICYLATE 262 MG/15 ML BTL PO PRN (11:18)
[2023-11-26] MEDS ORDERED: LOPERAMIDE HCL 2 MG CAPSULE PO PRN (11:18)
[2023-11-26] MEDS: BUDESONIDE/FORMETEROL FUMARATE 80/4.5 mcg INHALER IH SCH ×2 (13:14→22:42)
[2023-11-26 14:23] VITALS: BMI 26.9
[2023-11-26 15:32] LABS: HIV INTERPRETATION NEGATIVE (NEGATIVE)
[2023-11-26] MEDS: risperiDONE 1 MG TABLET PO SCH (22:14)
[2023-11-26] MEDS: THIAMINE HCL 100 MG TABLET (FP) PO SCH (22:14)
[2023-11-26] MEDS: METHOCARBAMOL 500 MG TABLET PO PRN (22:14)
[2023-11-26] MEDS: MELATONIN 5 MG TABLETS PO SCH (22:14)
[2023-11-26] MEDS: DIVALPROEX SODIUM 250 MG TABLET E.C. PO SCH (22:14)
[2023-11-27] MEDS: NICOTINE POLACRILEX 2 MG GUM BUC PRN ×2 (05:28→15:44)
[2023-11-27] MEDS: METHOCARBAMOL 500 MG TABLET PO PRN ×2 (05:29→21:47)
[2023-11-27] MEDS: PRENATAL VITAMINS W/ FOLIC ACID TABLET (FP) PO SCH (09:30)
[2023-11-27] MEDS: BUDESONIDE/FORMETEROL FUMARATE 80/4.5 mcg INHALER IH SCH ×2 (09:30→21:49)
[2023-11-27] MEDS: DIVALPROEX SODIUM 250 MG TABLET E.C. PO SCH ×2 (09:30→21:47)
[2023-11-27 10:41] LABS: HEMATOCRIT 36.5 % (32.4-45.2); HEMOGLOBIN 12.6 GM/dL (10.7-15.3); MCH 29.7 pg (25.7-33.7); MCHC 34.5 g/dl (32.0-36.0); MEAN CELL VOLUME 86.1 fl (80-96); MEAN PLT VOLUME 7.6 fl (7.5-11.1); PLATELET COUNT 312 10^3/uL (134-434); RBC 4.24 M/mm3 (3.60-5.2); RDW 13.7 % (11.6-15.6); WHITE BLOOD COUNT 7.4 K/mm3 (4.0-10.0)
[2023-11-27 10:53] LABS: POTASSIUM 4.1 mmol/L (3.5-5.1)
[2023-11-27 10:58] LABS: ALBUMIN 3.4 g/dl (3.4-5.0); CALCIUM 9.2 mg/dL (8.5-10.1)
[2023-11-27 10:59] LABS: BLOOD UREA NITROGEN 14.9 mg/dL (7-18)
[2023-11-27 11:01] LABS: CREATININE 0.9 mg/dL (0.55-1.3)
[2023-11-27 11:02] LABS: TOT PROT 7.2 g/dl (6.4-8.2)
[2023-11-27 11:03] LABS: BILIRUBIN,TOTAL 0.2 mg/dL (0.2-1)
[2023-11-27] MEDS: risperiDONE 1 MG TABLET PO SCH (21:47)
[2023-11-27] MEDS: THIAMINE HCL 100 MG TABLET (FP) PO SCH (21:47)
[2023-11-27] MEDS: MELATONIN 5 MG TABLETS PO SCH (21:49)
[2023-11-28] MEDS ORDERED: cloNIDine HCL 0.1 MG TABLET PO PRN (09:47)
[2023-11-28] MEDS: PRENATAL VITAMINS W/ FOLIC ACID TABLET (FP) PO SCH (10:16)
[2023-11-28] MEDS: DIVALPROEX SODIUM 250 MG TABLET E.C. PO SCH (10:16)
[2023-11-28] MEDS: BUDESONIDE/FORMETEROL FUMARATE 80/4.5 mcg INHALER IH SCH (10:17)
[2023-11-28] MEDS ORDERED: methaDONE HCL 10 MG TABLET (FOR DETOX USE ONLY) PO ONE (10:45)
[2023-11-28 10:54] VITALS: RESP 16
[2023-11-28] MEDS: METHOCARBAMOL 500 MG TABLET PO PRN (11:01)
[2023-11-28 13:07] VITALS: BP 138/86; PULSE 60; TEMP 97.3
[2023-11-30] MEDS ORDERED: methaDONE HCL 10 MG TABLET (FOR DETOX USE ONLY) PO ONE (10:00)
== END 2023-11-28 16:35 | disposition left against medical advice (07) | DRG 894 ==
LOC: YASAS 10:13 → Y6N 11:38
PROVIDERS: ADMIT Allergy & Immunology; ATTEND Allergy & Immunology
PROC: HZ2ZZZZ Detoxification Services for Substance Abuse Treatment (ICD-10-PCS; principal; 2023-11-26)
DX: F11.23 Opioid dependence with withdrawal (principal); F14.20 Cocaine dependence, uncomplicated; R56.1 Post traumatic seizures; Z59.00 Homelessness unspecified; F12.20 Cannabis dependence, uncomplicated; F17.210 Nicotine dependence, cigarettes, uncomplicated; F25.9 Schizoaffective disorder, unspecified; F43.10 Post-traumatic stress disorder, unspecified; I10 Essential (primary) hypertension; J45.909 Unspecified asthma, uncomplicated; E11.9 Type 2 diabetes mellitus without complications; R76.8 Other specified abnormal immunological findings in serum; Z86.19 Personal history of other infectious and parasitic diseases; Z62.810 Personal history of physical and sexual abuse in childhood; Z91.410 Personal history of adult physical and sexual abuse; Z63.8 Other specified problems related to primary support group; Z56.0 Unemployment, unspecified
CPT/HCPCS: 0241U-QW; 36415; 80053; 80164; 81025; 85027; 86593; 86780; 87389; 87811; Q0162